=== PATIENT | male | born 1950 | race Caucasian/White ===

== ENCOUNTER 2025-04-03 07:59 | Outpatient (OUT) | payer MEDICARE, MEDICAID, SELFPAY ==
[2025-04-03 08:36] LABS: Basophils Percent Auto 0.6 % (0.2-2.0); Eosinophils Absolute Auto 0.1 10^3/uL (0.0-0.7); Eosinophils Percent Auto 2.4 % (0.9-7.0); Immature Granulocytes Abs Auto 0.03 10^3/uL (0.00-0.03); Immature Granulocytes Pct Auto 0.6 % (0.0-0.5); Lymphocytes Absolute Auto 1.2 10^3/uL (1.2-3.8); Lymphocytes Percent Auto 21.4 % (20.5-60.0); Mean Corpuscular HGB Conc 33.3 g/dL (29.9-35.2); Mean Corpuscular Hemoglobin 31.9 pg (25.9-34.0); Mean Corpuscular Volume 95.8 fL (80.0-94.0); Mean Platelet Volume 9.4 fL (9.5-13.5); Monocytes Absolute Auto 0.5 10^3/uL (0.3-0.8); Monocytes Percent Auto 9.7 % (1.7-12.0); Neutrophils Absolute Auto 3.5 10^3/uL (1.4-6.5); Neutrophils Percent Auto 65.3 % (43.0-75.0); Platelet Count 203 10^3/uL (150-450); Red Blood Count 4.07 10^6/uL (4.70-6.10); Red Cell Distribution Width 14.8 % (11.0-15.0); White Blood Count 5.4 10^3/uL (4.0-11.0)
[2025-04-03 09:14] LABS: Alanine Aminotransferase 12 U/L (16-63); Albumin Globulin Ratio 0.9; Albumin Level 3.2 g/dL (3.4-5.0); Alkaline Phosphatase 85 U/L (46-116); Anion Gap 6.7; Aspartate Amino Transferase 11 U/L (15-37); BUN Creatinine Ratio 14.4; Bilirubin Total 0.4 mg/dL (0.2-1.0); Calcium 9.4 mg/dL (8.5-10.1); Carbon Dioxide 35.1 mmol/L (21.0-32.0); Chloride 97 mmol/L (98-107); Estimated GFR (African America >60 (>=60 mL/min/1.73m^2); Estimated GFR (Non-African Ame >60 (>=60 mL/min/1.73m^2); Globulin 3.4 g/dL; Glucose 107 mg/dL (74-106); Potassium 4.8 mmol/L (3.5-5.1); Sodium 134 mmol/L (136-145); Thyroid Stimulating Hormone 1.225 uIU/mL (0.358-3.740); Total Protein 6.6 g/dL (6.4-8.2)
[2025-04-03 10:18] LABS: Free T4 0.87 ng/dL (0.76-1.46)
== END 2025-04-03 08:00 | disposition home or self-care (01) ==
LOC: LAB 08:06
PROVIDERS: PCP Internal Medicine
DX: Z92.29 Personal history of other drug therapy (principal)
CPT/HCPCS: 36415; 80053; 80164; 80165; 84439; 84443; 85025

== ENCOUNTER 2025-04-20 14:00 | Outpatient (OUT) | payer MEDICARE, MEDICAID, SELFPAY ==
--- NOTE | 2025-04-20 14:23 | PM.WCHP ---
Wound Care H&P: HPI History of Present Illness Narrative: Mr. Mon is a pleasant 74-year-old gentleman with history of type 2 diabetes with eye complications who presents for routine nail care. Last hemoglobin A1c was 5.8. He has no complaints in regards to his feet. Exam Narrative: Exam Narrative: Derm: Toenails 1 through 10 are thickened, elongated, and painful.? No evidence of paronychia.? Skin is diffusely dry, thin, and atrophic.? No ulcerative or preulcerative lesions are noted Vascular: DP and PT pulses are 2/4 bilaterally. Capillary refill is less than 3 seconds to all toes. Digital hair is absent bilaterally. Neuro: Vibratory sensation is present bilaterally.? Achilles deep tendon reflex is absent bilaterally.? Protective sensation was tested with a monofilament and is present in 3/5 areas tested on the right and 5/5 areas tested on the left.? Musculoskeletal: No gross deformity.? Strength 5/5 in all planes bilaterally Assessment and Plan Assessment and Plan (1) Tinea unguium: (2) Type 2 diabetes mellitus with other diabetic ophthalmic complication: (3) Nail dystrophy: Plan Routine nail care performed. Follow-up in 3 months. Acute Procedures Podiatry Nail Debridement Class B Findings Advanced trophic changes as evidenced by any three of the following: decreased hair growth, nail changes (thickening) and skin texture (thin or shiny) Class C Findings Claudication: No Temperature changes: No Edema: Yes Nail debridement paresthesia (abnormal spontaneous sensations in the feet): No Burning: No Qualifies If: Qualifiers If:: A patient qualifies for nail debridement if they have: 1 class A finding (Q7) 2 class B findings (Q8) OR 1 class B & 2 class C findings in addition to a primary condition (Q9) Nail Procedure Nail Procedure Time out: Yes Nail procedure: other (Toenail debridement toes 1 through 10) Number of affected nails: 10 Location (toes): left and right Procedure successful: Yes Patient tolerated procedure: well and no complications Additional comments: Toenails 1 through 10 were sharply debrided with nail nippers without incident
== END 2025-04-20 14:01 | disposition home or self-care (01) ==
LOC: WC 14:00
PROVIDERS: PCP Internal Medicine; Visit Provider Physician Assistant
DX: B35.1 Tinea unguium (principal); E11.39 Type 2 diabetes mellitus with other diabetic ophthalmic complication; L60.3 Nail dystrophy
CPT/HCPCS: 11721

== ENCOUNTER 2025-07-20 14:11 | Outpatient (OUT) | payer MEDICARE, MEDICAID, SELFPAY ==
--- NOTE | 2025-07-20 14:42 | PM.WCHP ---
Wound Care H&P: HPI History of Present Illness Narrative: Mr. Mon is a pleasant 75-year-old gentleman with history of type 2 diabetes with eye complications who presents for routine nail care. Last hemoglobin A1c was 5.8. He has no complaints in regards to his feet. Exam Narrative: Exam Narrative: Derm: Toenails 1 through 10 are thickened, elongated, mycotic, and painful.? No evidence of paronychia.? Skin is diffusely dry, thin, and atrophic.? Mild maceration noted between toe 4/5 on the right foot. Vascular: DP and PT pulses are 2/4 bilaterally. Capillary refill is less than 3 seconds to all toes. Digital hair is absent bilaterally. Neuro: Vibratory sensation is present bilaterally.? Achilles deep tendon reflex is absent bilaterally.? Protective sensation was tested with a monofilament and is present in 3/5 areas tested on the right and 5/5 areas tested on the left.? Musculoskeletal: No gross deformity.? Strength 5/5 in all planes bilaterally Assessment and Plan Assessment and Plan (1) Tinea unguium: (2) Type 2 diabetes mellitus with other diabetic ophthalmic complication: (3) Nail dystrophy: Plan Routine nail care performed. Betadine applied between toes 4 & 5 on the right foot for mild tinea pedis. Follow-up in 3 months. Acute Procedures Podiatry Nail Debridement Class B Findings Advanced trophic changes as evidenced by any three of the following: decreased hair growth, nail changes (thickening) and skin texture (thin or shiny) Class C Findings Claudication: No Temperature changes: No Edema: Yes Nail debridement paresthesia (abnormal spontaneous sensations in the feet): No Burning: No Qualifies If: Qualifiers If:: A patient qualifies for nail debridement if they have: 1 class A finding (Q7) 2 class B findings (Q8) OR 1 class B & 2 class C findings in addition to a primary condition (Q9) Nail Procedure Nail Procedure Time out: Yes Nail procedure: other (Toenail debridement toes 1 through 10) Number of affected nails: 10 Location (toes): left and right Procedure successful: Yes Patient tolerated procedure: well and no complications Additional comments: Toenails 1 through 10 were sharply debrided with nail nippers without incident
== END 2025-07-20 14:12 | disposition home or self-care (01) ==
LOC: WC 14:11
PROVIDERS: PCP Internal Medicine; Visit Provider Physician Assistant
DX: B35.1 Tinea unguium (principal); E11.39 Type 2 diabetes mellitus with other diabetic ophthalmic complication; L60.3 Nail dystrophy
CPT/HCPCS: 11721

== ENCOUNTER 2025-09-02 16:03 | Inpatient (IN) | payer MEDICARE, MEDICAID, SELFPAY ==
--- OUTSIDE RECORDS SUMMARY | 2024-12-12 09:00 | XMS_ITS ---
Author Organization The [facility] in [place] Address [address] [place] [address] Care Team Providers Care Regional Vice President Surgical Sales Name Role Phone None, Unknown or Primary Care Provider Unavailab Radha Hopkins Unavailable [phone] REASON FOR VISIT diabetic nail care Encounters Encounter Location Date Provider Diagnosis [facility] (PODIATRY) [address] [place] [address] [place] [address] 12/12/2024 Radha Almanza Plan Of Treatment No Information Progress Notes * Sacha SWEETDOB:1950 (75 yo M)Acc No.[id number]:12/12/2024 UNLOCKED PROGRESS NOTE Nurse Visit Patient: Sacha TRUJILLO Provider: Carolyn Almanza PA-C :1950 A ge:74 Y S ex:Male Date:12/12/2024 [facility] [phone] Pcp:Unknown or None Subjective: * Chief Complaints: * 1 . Diabetic nail care. * Medical History: Objective: * Vitals: Assessment: Plan: * Treatment: * * Electronic signature of Izabella Almanza PA-C on 09/02/2025 at 04:12 PM EDT Sign off status: Pending Visit Status: C ANC (Cancelled) * Provider: Carolyn Almanza PA-C Date: 0 12/12/2024 Generated for Printi ng/Faxing/eTransmitting on: 1 04:12 PM EDT
[2025-09-02] VITALS (25 sets, daily range): BP systolic 154–183; BP diastolic 81–100; PULSE 68–99; TEMP 36.8–36.9; O2SAT 84–96; BMI 25.8; BMI 29.1
--- NOTE | 2025-09-02 16:12 | XR_ITS ---
The [address] [address] Patient Name: KEN SWEET MRN: [id number] date: 1950 Sex: M Assigned Patient Location: ED.MAIN Current Patient Location: ED.MAIN Accession/Order Number: [id number] Exam Date: 09/02/2025 16:40 Report Date: 09/02/2025 16:53 At the request of: MACKENZIE BRYANT MD Procedure: XR chest 1V Single view chest: CLINICAL HISTORY: sob COMPARISON: Chest 02/09/2020 FINDINGS: Right-sided port tip in the SVC. Cardiomegaly with vascular congestion similar to the prior study. Moderate interstitial changes. No consolidation pneumothorax pleural effusion or free air. IMPRESSION: CHF FINDINGS. Impression dictated by: Fred Marquez Jr.ODestiny 09/02/2025 4:53 PM Dictation Location: [place] [address] Electronically authenticated by: [id number] Y Date: 09/02/2025 16:53
--- NOTE | 2025-09-02 16:12 | ECG_ITS ---
The [facility] Test Date: 2025-09-02 Pat Name: KEN SWEET Department: Room: - Gender: Male Cut To Length Operator: : 1950 Requested By: [id number] Order Number: [id number] Reading MD: CORNELL RENTERIA M.D. Measurements Intervals Thomson Rate: 72 P: 20 RI: 158 QRS: 32 QRSD: 92 T: 40 QT: 362 QTc: 386 Interpretive Statements 1100 Sinus rhythm 9110 normal ECG Compared to ECG 02/09/2020 14:49:56 No significant changes Electronically Signed On 09-03-2025 13:25:40 EDT by CORNELL RENTERIA M.D.
--- OUTSIDE RECORDS SUMMARY | 2025-09-02 16:13 | XMS_ITS ---
Author Organization [facility] Address [address] [place], [place] [id number] Care Team Providers Care Rubber Compounder Formulator Name Role Phone Jose Luis THORPE MD, Padilla Fletcher Primary Care Provider [phone] Smitha Doyle DO, David L Unavailable [phone] Liza Travis APRN.CNP Unavailable [phone] Carlos Cr MD Unavailable Active Problems Problem Noted Date Diagnosed Date CHF (congestive heart failure) 06/05/2025 Obstructive sleep apnea syndrome 06/05/2025 Chronic obstructive pulmonary disease (COPD) 05/2025 Developmental delay 07/22/2022 Malignant neoplasm of lower third of esophagus 0 04/09/2019 Hereditary and idiopathic neuropathy, unspecifie d Hearing loss Current Treatment and Therapy Plans No current plan information found. Past Treatment and Therapy Plans ONCOLOGY REGIMEN Plan Name Start Date Discontinue Date Treatment Medications Discontinue Reason Plan Provider Cycles PACLITAXEL 50 CARBOPLATIN 2 D1,8,15,22,29, 36,43,50 - Q56D 9 07/09/2020 CARBOplatin iv piggyback (PARAPLATIN)PA CLitaxel iv piggyback (TAXOL) Other Jd Argueta DO 1 of 1 cycle started Treatment Summaries Malignant neoplasm of lower third of esophagus (HCC)* Treatment Summary and Survivorship Care Plan Provided by: Liza Travis APRN.SUB ACUTE CARE NURSE General Information Patient Name: Sacha Mon Patient : 1950 Patient Health Care Providers Primary Care Provider: Dr. Padilla Amaya II Radiation Oncologist: Dr. Carlos Cr Medical Oncologist: Dr. Joshua Rodriges Other Providers: Liza Travis APRN.CNP ; Dr. Zachary Bone ([place]) Treatment Summary Diagnosis Location: Esophagus Cancer- GE junction/proximal stomach Cancer Type/Histology: Adenocarcinoma Stage: IIA, uT1, N1, M0 Diagnosis Date (year): Treatment Procedure Date(s)(year): March 03, 2019 Surgical procedure/location/findings: Upper endoscopy with EUS; Esophagus Cancer- GE junction/proximal stomach; Invasive, well to moderately differentiated adenocarcinoma Surgical Pathology: Pathologic diagnosis: Esophagus, GE junction/distal esophagus, endoscopic biopsy: Invasive, well to moderately differentiated adenocarcinoma. Carcinoma arises in Ding esophagitis with high-grade dysplasia. Radiation Radiation: Yes Body area treated: Distal esophagus/Proximal stomach Dose received: 5,040 cGy in 28 fx End Date (year): June 03, 2019 (April 26, 2019 through June 03, 2019) DELIVERED DOSE: Area: Distal Esophagus/Proximal Stomach 5,040 cGy in 28 fractions, 2 Arcs, VMAT, 6MV with daily CBCT TOTAL: 5,040 cGy in 28 fractions with concurrent carboplatin/paclitaxel ELAPSED TIME: 39 days. Chemotherapy Systemic Therapy (chemotherapy,hormonal therapy, other): Yes Name of Agents Used: Carboplatin and Paclitaxel Concurrent Radiation: Yes Frequency: Weekly x5 cycles Carboplatin AUC 2 Paclitaxel 50 mg/m2 End Dates(year): June 03, 2019 (April 26, 2019 through June 03, 2019) Persistent symptoms or side effects at completion of treatment: No Familial Cancer Risk Assessment Genetic/hereditary risk factor(s) or predisposing conditions: Some cancers have a familial link forwhich genetic counseling along with early cancer screening may be able to help prevent future generations fight similar cancers. However, at this time, there is no known familial link for your cancer. Genetic counseling: No Genetic testing results: N/A Follow-up Care Plan Need for ongoing (adjuvant) treatment for cancer: No Follow Up and Cancer Surveillance Schedule Time Since Diagnosis Outpatient Visits Labs Chest Imaging 0-2 Every 3 months Every other visit Once a year 2-5 Every 6 months Every other visit Once a year 5-10 Once a year Every visit Once a year Time Since Diagnosis Outpatient Visits Labs Chest Imaging 0-2 Every 3 months Every other visit Once a year 2-4 Every 4 months Every other visit Once a year 4-5 Every 6 months Every other visit Once a year 5-10 Once a year Every visit Once a year Visits to be coordinated by oncology team. Additional routine radiographic monitoring or biopsies can sometimes be indicated based on an individual patient basis. Please continue to see your primary care provider for all general health care recommended for a 71 year old year old male, including general cancer screening tests. Please do not hesitate to call theoffice or call attention to any new symptoms. Specifically, this would include anything representin. A brand new symptom; 2. A persistent or worsening symptom; 3. Or a symptom that might be related to the cancer coming back. Additional testing may become necessary at some point in time. We encourage you to call with any new concerns or questions, particularly if your symptoms are worsening or have lasted longer than 2 weeks. Possible late- and long-term effects that someone with this type of cancer and treatment may experience: Taste changes/Changes in eating habits Dental Problems/Delayed oral healing Hearing loss/Tinnitus Lymphedema/Swelling Feeding Tube Neuropathy Skin Changes Thyroid Changes Cancer survivors may experience issues with the areas listed below. If you have any concerns in these or other areas, please speak with your doctors or nurses to find out how you can get help with them: Emotional and mental health Physical Functioning Memory or concentration loss Fatigue Weight changes Fertility Stopping smoking Financial advice or assistance A number of lifestyle/behaviors can affect your ongoing health, including the risk for the cancer coming back or developing another cancer. Discuss these recommendations with your doctor or nurse: Tobacco use/cessation Alcohol use Diet Sun screen use Physical activity Resources you may be interested in: Director Of Front Office Cell Efficiency Supervisor Art Therapy [address] [place] [address] Oral, Head and Neck Cancer Support Group [facility] [phone] [facility] - [phone] [facility] - [phone] [facility] - [phone] Cancer Support [facility] - [phone] Prepared by: Liza Travis APRN.SUB ACUTE CARE NURSE Delivered on: March 07, 2022 - This Survivorship Care Plan is a cancer treatment summary and follow-up plan is provided to you to keep with your health care records and to share with your primary care provider. - This summary is a brief record of major aspects of your cancer treatment. You can share your copywith any of your doctors or nurses. However, this is not a detailed or comprehensive record of yourcare.
--- OUTSIDE RECORDS SUMMARY | 2025-09-02 16:13 | XMS_ITS | Encounter Summary ---
Author Organization [facility] Address [address] [place] [address] Care Team Providers Care Research Statistician Name Role Phone Padilla Amaya MD Unavailable [phone] Padilla Amaya MD Primary Care Provider [phone] Marian Lewis CERTIFIED ACTIVITIES DIRECTOR-BUNG DROPPER Unavailable Marian Lewis CERTIFIED ACTIVITIES DIRECTOR-BUNG DROPPER Unavailable Encounter Details Date Type Department Care Team (Late st Contact Info) Description 07/01/2023 Abstract [facility] [place] [facility] [address] [facility] [address] [place] [address] Padilla Amaya MD [address] [facility] [address] [place] [address] Social History Tobacco Use Types Packs/Day Years Used Date Smoking Tobacco: Former Cigarettes Smokeless Tobacco: Never Alcohol Use Standard Drinks/Week Comments Never 0 (1 standard drink = 0.6 oz pur e alcohol) 3-5 coffee Humiliation, Afraid, Rape, and Kick questionnair e Answer Date Recorded Within the last year, have y ou been afraid of your partner or ex-partner? No 06/26/2023 Within the last year, have y ou been humiliated or emotionally abused in other ways by your partner or ex-partner? No Within the last year, have y ou been kicked, hit, slapped, or otherwise physically hurt by your partner or ex-partner? No 06/26/2023 Within the last year, have y ou been raped or forced to have any kind of sexual activity by your partner or ex-partner? No 06/26/2023 Social Connection and Isolat ion Panel [NHANES] Answer Date Recorded In a typical week, how many times do you talk on the phone with family, friends, or neighbors? Once a week 06/26/2023 How often do you get togethe r with friends or relatives? Once a week 06/26/2023 How often do you attend chur or caodaism services? Never 06/26/2023 Do you belong to any clubs o r organizations such as confucianist groups, unions, fraternal or athletic groups, or school groups? Yes 06/26/2023 How often do you attend meet ings of the clubs or organizations you belong to? More than 4 times per year 06/26/2023 Are you , , di vorced, , never , or living with a partner? 06/26/2023 AUDIT-C Answer Date Recorded Q1: How often do you have a drink containing alcohol? Never 06/26/2023 Q2: How many drinks containi ng alcohol do you have on a typical day when you are drinking? Patient does not drink Q3: How often do you have si x or more drinks on one occasion? Never 06/26/2023 Overall Financial Resource Strain (CARDIA) Answe r Date Recorded How hard is it for you to pa y for the very basics like food, housing, medical care, and heating? Not hard at all 06/26/2023 PHQ-2 Answer Date Recorded Patient Health Questionnaire-2 Score 0 06/16/2023 [facility] - Occupational Stress Questionnaire Answer Date Recorded Do you feel stress - tense, restless, nervous, or anxious, or unable to sleep at night because your mind is troubled all the time - these days? Not at all 06/26/2023 Exercise Vital Sign Answer Date Recorde d On average, how many days pe r week do you engage in moderate to strenuous exercise (like a brisk walk)? 5 days 06/26/2023 On average, how many minutes do you engage in exercise at this level? 10 min 06/26/2023 Hunger Vital Sign Answer Date Recorded Within the past 12 months, y ou worried that your food would run out before you got the money to buy more. Never true 06/26/20 23 Within the past 12 months, t he food you bought just didn't last and you didn't have money to get more. Never true 06/26/2023 PRAPARE - Transportation Answer Date Re corded In the past 12 months, has l ack of transportation kept you from medical appointments or from getting medications? No 05/31 In the past 12 months, has l ack of transportation kept you from meetings, work, or from getting things needed for daily living? No 06/26/2023 Housing Stability Vital Sign Answer William e Recorded In the last 12 months, was t here a time when you were not able to pay the mortgage or rent on time? No 06/26/2023 In the last 12 months, how many places have you lived? 1 06/26/2023 In the last 12 months, was t here a time when you did not have a steady place to sleep or slept in a fpc (including now)? No 06/26/2023 Sex and Gender Information Value Date Recorded Sex Assigned at Not on file Legal Sex Male 6:44 PM EDT Gender Identity Not on file Sexual Orientation Not on file documented as of this encounter Plan of Treatment Upcoming Encounters Date Type Department Care Team (Late st Contact Info) Description 09/20/2025 2:00 PM EDT Office Visit [facility] [place] [facility] [address] [place] [address] [place] [phone] Rosario Nash MD [address] [place] [address] [place] [address] 09/26/2025 8:30 AM EDT Office Visit [facility] [place] [facility] [address] [place] [address] [place] [phone] Karen Cruz NP [address] [place] [address] [place] [address] 10/04/2025 1:30 PM EST Office Visit [facility] [place] [facility] [address] [place] [address] [place] [address] Marian Lewis, CERTIFIED ACTIVITIES DIRECTOR-BUNG DROPPER [address] [facility] [address] [place] [address] documented as of this encounter Visit Diagnoses Not on filedocumented in this encounter Care Teams Research Statistician Relationship Specialty Start Date End Date Padilla Amaya MD [address] [facility] [address] [place] [address] PCP - Almita CARSON 11/30/21 11/29/23 Padilla Amaya MD [address] [facility] [address] [place] [address] PCP - General Internal Medicine 05/26/23 Marian Lewis, CERTIFIED ACTIVITIES DIRECTOR-BUNG DROPPER [address] [facility] [address] [place] [address] PCP - Almita CARSON 11/30/23 Marian Lewis, CERTIFIED ACTIVITIES DIRECTOR-BUNG DROPPER [address] [facility] [address] [place] [address] Nurse Practitioner Behavioral Health 05/26/23 documented as of this encounter
--- OUTSIDE RECORDS SUMMARY | 2025-09-02 16:13 | XMS_ITS | Encounter Summary ---
Author Organization [facility] Address [address] [place] [address] Care Team Providers Care Biodiesel Product Development Manager Name Role Phone Padilla Amaya MD Unavailable [phone] Padilla Amaya MD Primary Care Provider [phone] Marian Lewis PARTS DEPARTMENT MANAGER-WORK ORDER DETAILER Unavailable Marian Lewis PARTS DEPARTMENT MANAGER-WORK ORDER DETAILER Unavailable Encounter Details Date Type Department Care Team (Late st Contact Info) Description 04/06/2023 Orders Only [facility] [place] [facility] [address] [facility] [address] [place] [address] May Shukla LPN Social History Tobacco Use Types Packs/Day Years Used Date Smoking Tobacco: Never Smokeless Tobacco: Never Tobacco Cessation:Counseling Given: Not Answered Alcohol Use Standard Drinks/Week Comments Never 0 (1 standard drink = 0.6 oz pur e alcohol) Sex and Gender Information Value Date Recorded Sex Assigned at Not on file Legal Sex Male 6:44 PM EDT Gender Identity Not on file Sexual Orientation Not on file documented as of this encounter Plan of Treatment Upcoming Encounters Date Type Department Care Team (Late st Contact Info) Description 09/20/2025 2:00 PM EDT Office Visit [facility] [place] [facility] [address] [facility] [address] [place] [address] Rosario Nash MD 112 [facility] [address] [place], [place] [id number] 09/26/2025 8:30 AM EDT Office Visit [facility] [place] [facility] [address] [facility] [address] [place] [phone] Karen Cruz, CLIENT MANAGER [employer] [address] [place] [address] [place] [address] 10/04/2025 1:30 PM EST Office Visit [facility] [place] [facility] [address] [place] [address] [place] [phone] Marian Lewis, PARTS DEPARTMENT MANAGER-WORK ORDER DETAILER [address] [facility] [address] [place] [address] documented as of this encounter Visit Diagnoses Not on filedocumented in this encounter Care Teams Biodiesel Product Development Manager Relationship Specialty Start Date End Date Padilla Amaya MD [address] [facility] [address] [place] [address] PCP - Almita CARSON 11/30/21 11/29/23 Padilla Amaya MD [address] [facility] [address] [place] [address] PCP - General Internal Medicine 05/26/23 Marian Lewis, PARTS DEPARTMENT MANAGER-WORK ORDER DETAILER [address] [facility] [address] [place] [address] PCP - Almita CARSON 11/30/23 Marian Lewis, PARTS DEPARTMENT MANAGER-WORK ORDER DETAILER [address] [place] [address] [place] [address] Nurse Practitioner Behavioral Health 05/26/23 documented as of this encounter
--- OUTSIDE RECORDS SUMMARY | 2025-09-02 16:13 | XMS_ITS | Encounter Summary ---
Author Organization [facility] Address [address] [place] [address] Care Team Providers Care Sales Management Trainee Name Role Phone Padilla Amaya MD Unavailable [phone] Padilla Amaya MD Primary Care Provider [phone] MONKEY-TWILL CUTTER Unavailable Marian Lewis [address] MONKEY-TWILL CUTTER Unavailable Encounter Details Date Type Department Care Team (Late st Contact Info) Description 06/25/2023 Abstract [facility] [place] [facility] 112 [facility] 110 [place] [address] Padilla Amaya MD 112 [facility] 110 [place] [address] Social History Tobacco Use Types [...] How often do you attend chur or adventist services? Never 06/26/2023 Do you belong to any clubs o r organizations such as protestant groups, unions, fraternal or athletic groups, or [...] Recorded Patient Health Questionnaire-2 Score 0 06/16/2023 [facility] of Occupat ionny Health - Occupational Stress Questionnaire Answer Date [...] place to sleep or slept in a mcc (including now)? No 06/26/2023 Sex and Gender Information Value Date Recorded Sex Assigned at Not on file Legal Sex Male 6:44 PM EDT Gender Identity Not on file Sexual Orientation Not on file documented as of this encounter Functional Status * Audit-C Score Answer Date of Assessment Author 0 06/26/2023 10:04 AM EDT Kesha Hwang LPN * Question Answer Date of Assessment Author Q1: How often do you have a drink containing alcohol? Never 06/26/2023 10:04 AM EDT Kesha Hwang L PN Q2: How many drinks containing alcohol do you have on a typical day when you are drinking? Patient does not drink 06/26/2023 10:04 AM EDT Kesha Hwang LPN Q3: How often do you have six or more drinks on one occasion? Never 06/26/2023 10:04 AM EDT Kesha Hwang L PN documented as of this encounter Plan of Treatment Upcoming Encounters Date Type Department Care Team (Late st Contact Info) Description 09/20/2025 2:00 PM EDT Office Visit [facility] [place] [facility] [address] [facility] [address] [place] [address] Rosario Nash MD [address] [place] [address] [place] [address] 09/26/2025 8:30 AM EDT Office Visit [facility] [place] [facility] [address] [place] [address] [place] [address] Karen Cruz, SOCIAL AND POLITICAL STUDIES PROFESSOR [address] [place] [address] [place] [address] 10/04/2025 1:30 PM EST Office Visit [facility] [place] [facility] [address] [place] [address] [place] [address] Marian Lewis, ROAD MONKEY-TWILL CUTTER [address] [place] [address] [place] [address] documented as of this encounter Visit Diagnoses Not on filedocumented in this encounter Care Teams Sales Management Trainee Relationship Specialty Start Date End Date Padilla Amaya MD [address] [place] [address] [place] [address] PCP - Almita CARSON 11/30/21 11/29/23 Padilla Amaya MD [address] [place] [address] [place] [address] PCP - General Internal Medicine 05/26/23 Marian Lewis, ROAD MONKEY-TWILL CUTTER [address] [place] [address] [place] [address] PCP - Almita CARSON 11/30/23 Marian Lewis, ROAD MONKEY-TWILL CUTTER [address] [place] [address] [place] [address] Nurse Practitioner Behavioral Health 05/26/23 documented as of this encounter
--- OUTSIDE RECORDS SUMMARY | 2025-09-02 16:13 | XMS_ITS | Encounter Summary ---
Author Organization [facility] Address [address] [place] [address] Care Team Providers Care Foreman/Project Manager Name Role Phone Padilla Amaya MD Unavailable [phone] Padilla Amaya MD Primary Care Provider [phone] Marian Lewis WINE MANAGER-INSTRUCTOR WEAVING Unavailable Marian Lewis WINE MANAGER-INSTRUCTOR WEAVING Unavailable Encounter Details Date Type Department Care Team (Late st Contact Info) Description 06/11/2023 Clinisync Result Encounter [facility] External Department Unsolicited Provider, Generic External Data Social History Tobacco Use Types Packs/Day Years Used Date Smoking Tobacco: Never Smokeless Tobacco: Never Alcohol Use Standard Drinks/Week [...] Office Visit [facility] [place] [facility] [address] [facility] 130 [place] [address] Rosario Nash MD [address] [facility] 130 [place] [address] 09/26/2025 8:30 AM EDT Office Visit [facility] [place] [facility] 112 [facility] 110 [place] [address] Karen Cruz, STRETCHER HELPER 112 [facility] 110 [place] [address] 10/04/2025 1:30 PM EST Office Visit [facility] [place] [facility] 112 [facility] [address] [place] [address] Marian Lewis, WINE MANAGER-INSTRUCTOR WEAVING 112 [facility] 160 [place] [address] documented as of this encounter Procedures Procedure Name Priority Date/Time Associated Diagnosis Comments CT CHEST W IV CONTRAST 06/11/2023 2:15 PM EDT documented in this encounter Results * CT chest w IV contrast (06/11/2023 2:15 PM EDT) Anatomical Region Laterality Modality Body, Chest Computed Tomogra phy 06/11/2023 2:15 PM EDT Narrative 06/12/2023 1:46 PM EDT * * *Final Report* * * DATE OF EXAM: Jun 11 2023 2:15PM [facility] 0539 - CT CHEST W IVCON / PROCEDURE REASON: Malignant neoplasm of lower third of esophagus (HCC) * * * * Physician Interpretation * * * * RESULT: EXAMINATION: CHEST CT WITH CONTRAST CLINICAL HISTORY: Esophageal carcinoma Technique: Spiral CT acquisition of the chest from the thoracic inlet to the upper abdomen following IV contrast. MQ: CTCW_6 Contrast: 150 mL Omnipaque [address] Radiation dose: Integrated Dose-length product (DLP) for this visit = 1042 mGy*cm CT Dose Reduction Employed: Automated exposure control (AEC) Comparison: CT chest 02/26/2022 RESULT: Limitations: None. Lines, tubes, and devices: Right-sided Port-A-Cath remains in place. Lung parenchyma , airways, and pleural space: No consolidative process or pleural effusion. The trachea and major airways appear patent. Mild, diffuse bronchial wall thickening is appreciated. Focal area of cystic bronchiectasis within the right upper lobe, image 61, series 4, stable. Bibasilar subpleural areas of atelectasis/scarring are again noted. 3 mm nodule at the right lower lobe, image 150, series 4, stable. Newly apparent 4 mm nodule within the left lower lobe, image 132, series 4 is felt to most likely relate to an area of mucous plugging. Lower neck, lymph nodes, and mediastinum: Heterogeneous enlargement of the thyroid gland is appreciated, stable. 2.1 cm right lobe hypodensity, unchanged. No substantial supraclavicular or axillary lymphadenopathy is identified. No substantial mediastinal or hilar adenopathy is identified. Moderate, diffuse esophageal wall thickening is identified, more prominent at the gastroesophageal junction, unchanged. Heart, pericardium, and thoracic vessels: The thoracic aorta is normal in caliber. No substantial pericardial effusion. A small amount of coronary artery calcification is noted. Bones/Soft Tissues: Degenerative change involving the thoracic spine is again appreciated. No osseous destructive process is appreciated. Upper Abdomen: A CT examination of the abdomen has been performed concurrently and will be dictated separately. Flight Security Specialist (topogram) images: No additional findings. IMPRESSION: 1. Newly apparent 4 mm nodule within the left lower lobe is felt to most likely relate to an area of mucous plugging. Correlation with continued follow-up summations is recommended. 2. Moderate, diffuse esophageal wall thickening is again identified, unchanged. 3. No substantial intrathoracic adenopathy is identified. Transcribe Date/Time: Jun 12 2023 10:06A Dictated by: MUNIR CORTEZ MD This examination was interpreted and the report reviewed and electronically signed by: MUNIR CORTEZ MD on Jun 12 2023 1:43PM EST Thank you for allowing us to participate in the care of your patient. Should there be any questions regarding this interpretation, please call [phone]. If you are unable to reach us at the number above, please feel free to contact [facility] at [phone]. [id number] Procedure Note Radiology, Radiologist, - 06/12/2023 * * *Final Report* * * DATE OF EXAM: Jun 11 2023 2:15PM [facility] 0539 - CT CHEST W IVCON / PROCEDURE REASON: Malignant neoplasm of lower third of esophagus (HCC) * * * * Physician Interpretation * * * * RESULT: EXAMINATION: CHEST CT WITH CONTRAST CLINICAL HISTORY: Esophageal carcinoma Technique: Spiral CT acquisition of the chest from the thoracic inlet to the upper abdomen following IV contrast. MQ: CTCW_6 Contrast: 150 mL Omnipaque [address] Radiation dose: Integrated Dose-length product (DLP) for this visit = 1042 mGy*cm CT Dose Reduction Employed: Automated exposure control (AEC) Comparison: CT chest 02/26/2022 RESULT: Limitations: None. Lines, tubes, and devices: Right-sided Port-A-Cath remains in place. Lung parenchyma , airways, and pleural space: No consolidative process or pleural effusion. The trachea and major airways appear patent. Mild, diffuse bronchial wall thickening is appreciated. Focal area of cystic bronchiectasis within the right upper lobe, image 61, series 4, stable. Bibasilar subpleural areas of atelectasis/scarring are again noted. 3 mm nodule at the right lower lobe, image 150, series 4, stable. Newly apparent 4 mm nodule within the left lower lobe, image 132, series 4 is felt to most likely relate to an area of mucous plugging. Lower neck, lymph nodes, and mediastinum: Heterogeneous enlargement of the thyroid gland is appreciated, stable. 2.1 cm right lobe hypodensity, unchanged. No substantial supraclavicular or axillary lymphadenopathy is identified. No substantial mediastinal or hilar adenopathy is identified. Moderate, diffuse esophageal wall thickening is identified, more prominent at the gastroesophageal junction, unchanged. Heart, pericardium, and thoracic vessels: The thoracic aorta is normal in caliber. No substantial pericardial effusion. A small amount of coronary artery calcification is noted. Bones/Soft Tissues: Degenerative change involving the thoracic spine is again appreciated. No osseous destructive process is appreciated. Upper Abdomen: A CT examination of the abdomen has been performed concurrently and will be dictated separately. Flight Security Specialist (topogram) images: No additional findings. IMPRESSION: 1. Newly apparent 4 mm nodule within the left lower lobe is felt to most likely relate to an area of mucous plugging. Correlation with continued follow-up summations is recommended. 2. Moderate, diffuse esophageal wall thickening is again identified, unchanged. 3. No substantial intrathoracic adenopathy is identified. Transcribe Date/Time: Jun 12 2023 10:06A Dictated by: MUNIR CORTEZ MD This examination was interpreted and the report reviewed and electronically signed by: MUNIR CORTEZ MD on Jun 12 2023 1:43PM EST Thank you for allowing us to participate in the care of your patient. Should there be any questions regarding this interpretation, please call [phone]. If you are unable to reach us at the number above, please feel free to contact [facility] at [phone]. [id number]^[email or web address] us Generic External Data Provider IMG CT PROCEDURES Final Result documented in this encounter Visit Diagnoses Not on filedocumented in this encounter Care Teams Foreman/Project Manager Relationship Specialty Start Date End Date Padilla Amaya MD [address] [facility] 110 [place] [address] PCP - Almita CARSON 11/30/21 11/29/23 Padilla Amaya MD [address] [facility] 110 [place] [address] PCP - General Internal Medicine 05/26/23 Marian Lewis APRN-INSTRUCTOR WEAVING [address] [facility] 160 [place] [address] PCP - Almita CARSON 11/30/23 Marian Lewis APRN-INSTRUCTOR WEAVING [address] [facility] 160 [place] [address] Nurse Practitioner Behavioral Health 05/26/23 documented as of this encounter
--- OUTSIDE RECORDS SUMMARY | 2025-09-02 16:13 | XMS_ITS | Encounter Summary ---
Author Organization [facility] Address [address] [place] [address] Care Team Providers Care Graduate Assistant Athletic Trainer Name Role Phone Padilla Amaya MD Unavailable [phone] Padilla Amaya MD Primary Care Provider [phone] Marian Lewis MAINTENANCE DEPARTMENT MANAGER-CUSTOMER RELATIONSHIP SPECIALIST Unavailable Marian Lewis MAINTENANCE DEPARTMENT MANAGER-CUSTOMER RELATIONSHIP SPECIALIST Unavailable Encounter Details Date Type Department Care Team (Late st Contact Info) Description 06/25/2023 Abstract [facility] [place] [facility] 112 [facility] 110 [place] [address] Padilla Amaya MD 112 [facility] 110 [place] [address] Social History Tobacco Use Types [...] How often do you attend chur or anabaptism services? Never 06/26/2023 Do you belong to any clubs o r organizations such as roman catholic groups, unions, fraternal or athletic groups, or [...] Recorded Patient Health Questionnaire-2 Score 0 06/16/2023 [facility] of Occupat ionnm Health - Occupational Stress Questionnaire Answer Date [...] place to sleep or slept in a penitentiary (including now)? No 06/26/2023 Sex and Gender [...] Visit [facility] [place] [facility] [address] [facility] [address] [place] [address] Rosario Nash MD [address] [place] [address] [place] [address] 09/26/2025 8:30 AM EDT Office Visit [facility] [place] [facility] [address] [place] [address] [place] [address] Karen Cruz, JUDICIAL ADMINISTRATIVE ASSISTANT [address] [place] [address] [place] [address] 10/04/2025 1:30 PM EST Office Visit [facility] [place] [facility] [address] [place] [address] [place] [address] Marian Lewis, MAINTENANCE DEPARTMENT MANAGER-CUSTOMER RELATIONSHIP SPECIALIST [address] [place] [address] [place] [address] documented as of this encounter Visit Diagnoses Not on filedocumented in this encounter Care Teams Graduate Assistant Athletic Trainer Relationship Specialty Start Date End Date Padilla Amaya MD [address] [place] [address] [place] [address] PCP - Almita CARSON 11/30/21 11/29/23 Padilla Amaya MD [address] [place] [address] [place] [address] PCP - General Internal Medicine 05/26/23 Marian Lewis, MAINTENANCE DEPARTMENT MANAGER-CUSTOMER RELATIONSHIP SPECIALIST [address] [place] [address] [place] [address] PCP - Almita CARSON 11/30/23 Marian Lewis, MAINTENANCE DEPARTMENT MANAGER-CUSTOMER RELATIONSHIP SPECIALIST [address] [place] [address] [place] [address] Nurse Practitioner Behavioral Health 05/26/23 documented as of this encounter
--- OUTSIDE RECORDS SUMMARY | 2025-09-02 16:13 | XMS_ITS | Encounter Summary ---
Author Organization [facility] Address [address] [place] [address] Care Team Providers Care Franchise Broker Name Role Phone Padilla Amaya MD Unavailable [phone] Padilla Amaya MD Primary Care Provider [phone] Marian Lewis AVIATION TECHNICAL SYSTEMS SPECIALIST-ARMHOLE SEWER Unavailable Marian Lewis AVIATION TECHNICAL SYSTEMS SPECIALIST-ARMHOLE SEWER Unavailable Encounter Details Date Type Department Care Team (Late st Contact Info) Description 07/17/2023 Abstract [facility] [place] [facility] [address] [facility] 110 [place] [address] Padilla Amaya MD 112 [facility] 110 [place] [address] Social History Tobacco Use Types [...] How often do you attend chur or gnosticism services? Never 06/26/2023 Do you belong to any clubs o r organizations such as buddhist groups, unions, fraternal or athletic groups, or [...] Recorded Patient Health Questionnaire-2 Score 0 06/16/2023 [facility] of Occupat ionva Health - Occupational Stress Questionnaire Answer Date [...] place to sleep or slept in a usp (including now)? No 06/26/2023 Sex and Gender [...] Visit [facility] [place] [facility] [address] [facility] [address] [place] [phone] Rosario Nash MD [address] [place] [address] [place] [address] 09/26/2025 8:30 AM EDT Office Visit [facility] [place] [facility] [address] [place] [address] [place] [address] Karen Cruz NP [address] [place] [address] [place] [address] 10/04/2025 1:30 PM EST Office Visit [facility] [place] [facility] [address] [place] [address] [place] [address] Marian Lewis, AVIATION TECHNICAL SYSTEMS SPECIALIST-ARMHOLE SEWER [address] [facility] [address] [place] [address] documented as of this encounter Visit Diagnoses Not on filedocumented in this encounter Care Teams Franchise Broker Relationship Specialty Start Date End Date Padilla Amaya MD [address] [facility] [address] [place] [address] PCP - Almita CARSON 11/30/21 11/29/23 Padilla Amaya MD [address] [facility] [address] [place] [address] PCP - General Internal Medicine 05/26/23 Marian Lewis, AVIATION TECHNICAL SYSTEMS SPECIALIST-ARMHOLE SEWER [address] [facility] [address] [place] [address] PCP - Almita CARSON 11/30/23 Marian Lewis, AVIATION TECHNICAL SYSTEMS SPECIALIST-ARMHOLE SEWER [address] [facility] [address] [place] [address] Nurse Practitioner Behavioral Health 05/26/23 documented as of this encounter
--- OUTSIDE RECORDS SUMMARY | 2025-09-02 16:13 | XMS_ITS | Encounter Summary ---
Author Organization [facility] Address [address] [place] [address] Care Team Providers Care Care Professionals Name Role Phone Padilla Amaya MD Unavailable [phone] Padilla Amaya MD Primary Care Provider [phone] Marian Lewis GUN EXAMINER-RETAIL MANAGEMENT KEYHOLDER Unavailable Marian Lewis GUN EXAMINER-RETAIL MANAGEMENT KEYHOLDER Unavailable Encounter Details Date Type Department Care Team (Late st Contact Info) Description 08/05/2023 Abstract [facility] [place] [facility] 112 [facility] 110 [place] [address] Padilla Amaya MD 112 [facility] 110 [place] [address] Social History Tobacco Use Types [...] How often do you attend chur or mandaen services? Never 06/26/2023 Do you belong to any clubs o r organizations such as scientology groups, unions, fraternal or athletic groups, or [...] Recorded Patient Health Questionnaire-2 Score 0 06/16/2023 [facility] of Occupat ionfl Health - Occupational Stress Questionnaire Answer Date [...] place to sleep or slept in a retirement (including now)? No 06/26/2023 Sex and Gender [...] Visit [facility] [place] [facility] [address] [facility] [address] [place] [address] Rosario Nash MD [address] [place] [address] [place] [address] 09/26/2025 8:30 AM EDT Office Visit [facility] [place] [facility] [address] [place] [address] [place] [address] Karen Cruz NP [address] [place] [address] [place] [address] 10/04/2025 1:30 PM EST Office Visit [facility] [place] [facility] [address] [place] [address] [place] [address] Marian Lewis, GUN EXAMINER-RETAIL MANAGEMENT KEYHOLDER [address] [facility] [address] [place] [address] documented as of this encounter Visit Diagnoses Not on filedocumented in this encounter Care Teams Care Professionals Relationship Specialty Start Date End Date Padilla Amaya MD [address] [facility] [address] [place] [address] PCP - Almita CARSON 11/30/21 11/29/23 Padilla Amaya MD [address] [facility] [address] [place] [address] PCP - General Internal Medicine 05/26/23 Marian Lewis, GUN EXAMINER-RETAIL MANAGEMENT KEYHOLDER [address] [facility] [address] [place] [address] PCP - Almita CARSON 11/30/23 Marian Lewis, GUN EXAMINER-RETAIL MANAGEMENT KEYHOLDER [address] [facility] [address] [place] [address] Nurse Practitioner Behavioral Health 05/26/23 documented as of this encounter
--- OUTSIDE RECORDS SUMMARY | 2025-09-02 16:13 | XMS_ITS | Encounter Summary ---
Author Organization [facility] Address [address] [place] [address] Care Team Providers Care Academic Department Chair Name Role Phone Padilla Amaya MD Unavailable [phone] Padilla Amaya MD Primary Care Provider [phone] Marian Lewis BRAKE ENGINEER-AERIAL ADVERTISER Unavailable Marian Lewis BRAKE ENGINEER-AERIAL ADVERTISER Unavailable Encounter Details Date Type Department Care Team (Late st Contact Info) Description 05/21/2023 Abstract [facility] [place] [facility] [address] [facility] 110 [place] [address] Padilla Amaya MD [address] [facility] 110 [place] [address] Social History Tobacco Use Types [...] Office Visit [facility] [place] [facility] [address] [facility] [address] [place] [address] Rosario Nash MD [address] [place] [address] [place] [address] 09/26/2025 8:30 AM EDT [facility] [place] [facility] [address] [place] [address] [place] [address] Karen Cruz, COMPUTATIONAL LINGUIST [address] [place] [address] [place] [address] 10/04/2025 1:30 PM EST Office Visit [facility] [place] [facility] [address] [place] [address] [place] [address] Marian Lewis, BRAKE ENGINEER-AERIAL ADVERTISER [address] [place] [address] [place] [address] documented as of this encounter Visit Diagnoses Not on filedocumented in this encounter Care Teams Academic Department Chair Relationship Specialty Start Date End Date Padilla Amaya MD [address] [place] [address] [place] [address] PCP - Almita CARSON 11/30/21 11/29/23 Padilla Amaya MD [address] [place] [address] [place] [address] PCP - General Internal Medicine 05/26/23 Marian Lewis BRAKE ENGINEER-AERIAL ADVERTISER [address] [place] [address] [place] [address] PCP - Almita CARSON 11/30/23 Marian Lewis BRAKE ENGINEER-AERIAL ADVERTISER [address] [place] [address] [place] [address] Nurse Practitioner Behavioral Health 05/26/23 documented as of this encounter
--- OUTSIDE RECORDS SUMMARY | 2025-09-02 16:13 | XMS_ITS | Clinical Summary ---
Author Organization [facility] Address [facility] [place] [id number] Care Team Providers Care Hard Tile Setter Name Role Phone Jose Luis THORPE MD, Padilla Fletcher Primary Care Provider [phone] Smitha Doyle DO, David L Unavailable [phone] Liza Travis APRN.EVALUATOR Unavailable [phone] Carlos Cr MD Unavailable Allergies No known active allergies Medications tamsulosin ER (FLOMAX) 0.4 mg cap Take 0.4 mg by mouth once daily. 5 02/17/20 19 Active metFORMIN (GLUCOPHAGE) 500 mg tablet Take 500 mg by mouth twice daily. 3 03/03/20 19 Active ranitidine (ZANTAC) 150 mg tablet Take 150 mg by mouth three times a day. 10 02/24/20 19 Active furosemide (LASIX) 40 mg tablet Take 40 mg by mouth as needed. 0 03/04/20 19 Active potassium chloride (K-TAB) 10 mEq tablet Take 20 mEq by mouth once daily. 1 12/01/19 19 Active ALPRAZolam (XANAX) 0.5 mg tablet Take 0.5 mg by mouth twice daily as needed. 1 02/24/20 19 Active traZODone (DESYREL) 100 mg tablet Take 100 mg by mouth at bedtime as needed. 2 03/02/20 19 Active risperiDONE (RISPERDAL) 1 mg tablet TAKE 1 TABLET BY MOUTH EVERY MORNING & TAKE 2 mg TABLET BY MOUTH AT BEDTIME 2 02/24/[address] (DEPAKOTE) 125 mg EC tablet TAKE 1 TABLET BY MOUTH THREE TIMES DAILY for mood 2 02/24/20 19 Active TRUE METRIX GLUCOSE TEST STRIP test strip USE TEST STRIP TO TEST BLOOD SUGAR TWICE DAILY 5 01/21/20 19 Active aspirin, enteric coated (ASPIRIN, ENTERIC COATED) 81 mg EC tablet Take 81 mg by mouth once daily. Active oxybutynin XL (DITROPAN XL) 5 mg 24 hr tablet Take 5 mg by mouth once daily. Active rosuvastatin (CRESTOR) 10 mg tablet Take 10 mg by mouth once daily. Active melatonin 3 mg tablet Take by mouth. Activ e lamoTRIgine (LAMICTAL) 200 mg tablet Take 200 mg by mouth once daily. Active docusate sodium (COLACE) 100 mg capsule Take 100 mg by mouth as needed. Active metoprolol succinate ER (TOPROL XL) 25 mg 24 hr tablet Take 25 mg by mouth once daily. Takes 1/2 tablet bid Active MULTIVITAMIN ORAL Take by mouth. Activ e acetaminophen (TYLENOL ARTHRITIS ORAL) Take by mouth. Active sertraline (ZOLOFT) 100 mg tablet Take 100 mg by mouth two times a day. 1 1/2 tabs daily Active magnesium oxide (MAG-OX) 400 mg (241.3 mg magnesium) tablet Take 1 tablet by mouth once daily as needed. 05/22/20 Active ipratropium (ATROVENT) 0.02 % nebulizer solution INHALE 1 vial (2.5ml) BY MOUTH via NEBULIZER EVERY 8 HOURS 04/17/20 Active ferrous sulfate 325 mg (65 mg iron) tablet Take 1 tablet by mouth once daily. 05/22/20 20 Active cholecalciferol , vitamin D3, (VITAMIN D3 ORAL) Take 1,000 mcg by mouth. Active esomeprazole (NEXIUM) 40 mg capsuleIndicati ons:Malignant neoplasm of lower third of esophagus (HCC) Take 1 capsule by mouth once daily. 90 capsule 3 06/22/20 20 Active nystatin (MYCOSTATIN) 100,000 unit/mL suspension Take 5 mL by mouth four times daily. 473 mL 1 07/19/20 20 Active hydrOXYzine HCl (ATARAX) 10 mg tablet Take 10 mg by mouth. Active ondansetron (ZOFRAN) 8 mg tabletIndicatio ns:CINV (chemotherapy-i nduced nausea and vomiting) Take 1 tablet by mouth every 8 hours as needed for nausea/vomiting. 30 tablet 3 04/25/20 22 Active esomeprazole (NEXIUM) 40 mg capsule Take 1 capsule by mouth twice daily. 60 capsule 2 08/11/20 22 Active prochlorperazin e (COMPAZINE) 10 mg tabletIndicatio ns:CINV (chemotherapy-i nduced nausea and vomiting) take 1 tablet by mouth every 6 hours as needed 30 tablet 3 08/28/20 23 Active iv contrast (will be provided with radiology test)Indication s:Malignant neoplasm of lower third of esophagus (HCC),Anemia, unspecified type CT Chest ABD/PEL-Inject, intravenously, once for 1 dose.No IV access, insert saline lock prior to the beginning of sedation, infusion, injection of imaging exam. Discontinue saline lock post exam. If Pt. has a central line or IVAD, may access for administration according to line specific nursing protocol. Once exam is complete flush line and de-access according to line specific nursing protocol in the CT contrast administration guidelines link. 1 Each 10/14/20 23 Active enteric contrast (will be provided with radiology test)Indication s:Malignant neoplasm of lower third of esophagus (HCC),Anemia, unspecified type For CT CHESTABD/PEL W IVCON Routine order Administer, As Directed One Time Only, via Oral, Rectal, both Oral and Rectal, Enteric Tube, Stoma or Indwelling Catheter, Enteric Contrast as designated per enteric contrast guidelines 1 Each 10/14/20 23 Active dicyclomine (BENTYL) 10 mg capsule Take 10 mg by mouth four times daily. Active valbenazine (INGREZZA) 80 mg capsule Take 80 mg by mouth. 03/27/20 25 026 Active rifAXIMin (XIFAXAN) 550 mg tablet Take 550 mg by mouth. Active albuterol HFA (PROVENTIL HFA, VENTOLIN HFA) 90 mcg/actuation inhaler inhale 1 puff by mouth every 4 hours as needed Active diphenoxylate-a tropine (LOMOTIL) 2.5-0.025 mg per tablet Take 1 tablet by mouth four times a day as needed. 02/23/20 25 Active cholestyramine (QUESTRAN) 4 gram packet take 1 PACKET BY MOUTH IN THE MORNING and IN THE EVENING WITH MEALS Active iv contrast (will be provided with radiology test)Indication s:Malignant neoplasm of lower third of esophagus (HCC),Esophagea l dysphagia,Anemi a, unspecified type CT Chest ABD/PEL-Inject, intravenously, once for 1 dose.No IV access, insert saline lock prior to the beginning of sedation, infusion, injection of imaging exam. Discontinue saline lock post exam. If Pt. has a central line or IVAD, may access for administration according to line specific nursing protocol. Once exam is complete flush line and de-access according to line specific nursing protocol in the CT contrast administration guidelines link. 1 each 05/10/20 25 Active enteric contrast (will be provided with radiology test)Indication s:Malignant neoplasm of lower third of esophagus (HCC),Esophagea l dysphagia,Anemi a, unspecified type For CT CHESTABD/PEL W IVCON Routine order Administer, As Directed One Time Only, via Oral, Rectal, both Oral and Rectal, Enteric Tube, Stoma or Indwelling Catheter, Enteric Contrast as designated per enteric contrast guidelines 1 each 05/10/20 25 Active multivit with min-folic acid (CENTRUM ADULT 50 PLUS) 80 mcg chew as directed Orally A ctive IBUPROFEN M ORAL Take by mouth. Activ e calcium carbonate (CALTRATE) 600 mg calcium (1,500 mg) tab Calcium Carbonate (Caltrate 600) 600 mg calcium (1,500 mg) Tablet Active 600 MG PO Daily March 24, 2023 12:00am 03/24/20 Active Active Problems Problem Noted Date Diagnosed Date CHF (congestive heart failure) 06/05/2025 Obstructive sleep apnea syndrome 06/05/2025 Chronic obstructive pulmonary disease (COPD) 05/2025 Developmental delay 07/22/2022 Malignant neoplasm of lower third of esophagus 0 04/09/2019 Hereditary and idiopathic neuropathy, unspecifie d Hearing loss Encounters Date Type Department Care Team Description 06/29/2025 2:40 PM EDT Visit (SP) Office Hematology/Oncology [address] [place] [address] [place] [address] Joshua Rodriges MD Malignant neoplasm of lower third of esophagus (HCC) (Primary Dx); Anemia, unspecified type; Esophageal dysphagia; Hyponatremia; Elevated random blood glucose level 06/29/2025 Travel 06/05/2025 10:20 AM EDT Anesthesia Event Procedures [address] [place] [address] Estephanie Wise MD Cook, Erin, AA 06/05/2025 8:46 AM EDT - 06/05/2025 11:59 PM EDT Hospital Encounter Procedures [id number] [place] [address] Alexis Jimenez DO Cook, Erin, AA Morscher, Katrina, MD Gawlik, Katie, RN Dysphagia, unspecified type [R13.10] Discharge Disposition: Home 06/05/2025 Results Follow-Up [facility] [place] [address] [place] [address] [address] [place] [address] Zachary Bone Jr., from Last 3 Months Immunizations Immunization Administration Dates Next Due COVID-19 original vaccine, f ull dose, monovalent (MODERNA) 09/04/2021 influenza (HD-IIV3) vaccine, age 65+ yr, high dose, trivalent, PF (FLUZONE HIGH-DOSE) 10/03/2021,10/01/2020,09/06/2018,08/25 influenza (HD-IIV4) vaccine, age 65+ yr, high dose, quadrivalent, PF (FLUZONE HIGH-DOSE) 10/01/2020,09/06/2018 influenza (IIV3) vaccine, tr ivalent, PF (AFLURIA, FLUARIX, FLULAVAL, FLUVIRIN, FLUZONE) 09/18/2017,09/04/2015,09/20/2013 influenza (IIV4) vaccine, ag e 6 mo - 64 yr, quadrivalent, PF (AFLURIA, FLUARIX, FLULAVAL, FLUZONE) 09/12/2019,09/18/2017,08/25/2016,09/04 influenza (ccIIV4) vaccine, age 6+ mo, quadrivalent, PF (FLUCELVAX) 10/09/2018 pneumococcal conjugate (PCV1 3) vaccine, 13 valent (PREVNAR 13) 10/09/2018,09/05/2015 pneumococcal polysaccharide (PPV23) vaccine, 23 valent (PNEUMOVAX 23) 08/25/2016 tetanus diphtheria pertussis (Tdap) vaccine, age 7+ yr (ADACEL, BOOSTRIX) 04/30/2021 zoster (ZVL) vaccine, live (ZOSTAVAX) 10/11/2014 Family History Medical History Relation Comments Heart disease Father Heart disease Mother Relation Status Comments Father Mother Social History Tobacco Use Types Packs/Day Years Used Date Smoking Tobacco: Every Day Cigarettes Last attempted to quit: 03/29/1983 Smokeless Tobacco: Never Tobacco Cessation:Ready to Q uit: Not Asked; Counseling Given: Not Answered Comments:5 cigs a day Alcohol Use Standard Drinks/Week Comments Never 0 (1 standard drink = 0.6 oz pur e alcohol) AUDIT-C Answer Date Recorded Q1: How often do you have a drink containing alc ohol? Never 06/22/2020 Average Number of Drinks Not on file 020 Frequency of Binge Drinking Not on file 05/31 PHQ-2 Answer Date Recorded PHQ-2 score 0 02/08/2021 Area Deprivation Index Answer Date Eduard rded National Score (1-100), lower number is lower ri sk 65 06/18/2023 State Score (1-10), lower number is lower risk 5 06/18/2023 Data from: https://www.neighborhoodatlas.medicine.[facility].edu/. Last address used for calculation [address] 06/18/2023 Sex and Gender Information Value Date Recorded Sex Assigned at Not on file Legal Sex Male 3:04 PM EDT Gender Identity Not on file Sexual Orientation Not on file Last Filed Vital Signs Vital Sign Reading Time Taken Comments Blood Pressure 133/86 06/29/2025 2:34 PM EDT Pulse 78 06/29/2025 2:34 PM EDT Temperature 36.4 C (97.6 F) 06/29/2025 2:34 PM EDT Respiratory Rate 16 06/29/2025 2:34 PM EDT Oxygen Saturation 93% 06/29/2025 2:34 PM EDT Inhaled Oxygen Concentration - - Weight 81 kg (178 lb 9.2 oz) 06/29/2025 2:34 PM EDT Height 175.3 cm (5' 9.02 ) 06/29/2025 2:34 PM ED T Body Mass Index 26.36 06/29/2025 2:34 PM EDT Plan of Treatment Health Maintenance Due Date Last Done Comments Abdominal Aortic Aneurysm Screening 1950 Annual PCP Team Chronic Dise ase Visit 1969 Anxiety Screening 1969 Depression Screening 1969 Hepatitis C Screening 1969 CT Colonography 1996 Cologuard (FIT-DNA) 1996 Fecal Occult Blood 1996 Sigmoidoscopy 1996 RSV Vaccine (1 - Risk 60-74 years 1-dose series) 2011 Shingrix Vaccine (2 of 3) 12/06/2014 10/11/2014 Colonoscopy 11/13/2016 11/13/2015 Colorectal Cancer Screening 11/13/2016 Lipid Screening 11/15/2023 11/15/2018, 09/01/2018 Advance Directive Discussion 11/30/2024 Medicare Advantage Annual We llness Visit 11/30/2024 Influenza Vaccine (#1) 2025 , 10/01/2020, 10/01/2020, Additional history exists Diabetes Screening 06/29/2028 06/29/2025, 0 05/22/2025, 02/22/2025, Additional history exists DTaP,Tdap,Td Vaccine (2 - Td or Tdap) 04/30/2031 04/30/2021 Pneumococcal Vaccine: 50+ Completed 2017, 08/25/2016, 09/05/2015 Medical Devices Implanted Type Area Diagnostic Imaging Manager Device Identifier Shelf Expiration Date Model / Serial / Lot Power Port Port Right: Chest Description:Power Port card scanned in 12/06/2021- hep flush Will Will Arm Procedures Procedure Name Priority Date/Time Associated Diagnosis Comments FOLATE SERUM Routine 06/29/2025 1:53 PM EDT Malignant neoplasm of lower third of esophagus (HCC) Anemia, unspecified type VITAMIN B12 BLOOD Routine 06/29/2025 1:5 3 PM EDT Malignant neoplasm of lower third of esophagus (HCC) Anemia, unspecified type FERRITIN BLD Routine 06/29/2025 1:53 PM EDT Malignant neoplasm of lower third of esophagus (HCC) Anemia, unspecified type IRON + TIBC Routine 06/29/2025 1:53 PM EDT Malignant neoplasm of lower third of esophagus (HCC) Anemia, unspecified type COMPREHENSIVE METABOLIC PANEL Routine 06/29/2025 1:53 PM EDT Malignant neoplasm of lower third of esophagus (HCC) Anemia, unspecified type CBC + DIFF Routine 06/29/2025 1:53 PM EDT Malignant neoplasm of lower third of esophagus (HCC) Anemia, unspecified type GLUCOSE, BLOOD (POC) Routine 06/05/2025 10:16 AM EDT EGD - THERAPEUTIC, EUS, OR TUBE INTERVENTIONS Routine 06/05/2025 10:04 AM EDT Dysphagia, unspecified type from Last 3 Months Results * VITAMIN B12 (06/29/2025 1:53 PM EDT) Vitamin B12 1,019 232 - 1,245 pg/mL 06/30/2025 7:05 AM EDT [facility] Blood BLOOD SPECIMEN / Unknown Venipuncture / Unknown 06/29/2025 1:53 PM EDT 06/29/2025 1:53 PM EDT us Joshua Rodriges MD LABORATORY Final Result [facility] [place] [address], * IRON AND TIBC (06/29/2025 1:53 PM EDT) Iron 140 41 - 186 ug/dL 06/30/2025 6:47 AM EDT [facility] TIBC 362 232 - 386 ug/dL 06/30/2025 6:47 AM EDT [facility] Transferrin Saturation 38.7 15.0 - 57.0 % 06/30/2025 6:47 AM EDT [facility] Blood BLOOD SPECIMEN / Unknown Venipuncture / Unknown 06/29/2025 1:53 PM EDT 06/29/2025 1:53 PM EDT us Joshua Rodriges MD LABORATORY Final Result [facility] [address] [facility] [facility] [place] [id number], [place] * FOLATE, SERUM (06/29/2025 1:53 PM EDT) [facility] Folate >20.0 >4.7 ng/mL 06/30/2025 7:05 AM EDT [facility] Comment: A result of > 20 ng/mL is not necessarily indicative of a pathologic or treatable condition: it reflects a limitation of the test methodology. Assay reference range: 4.8 to 24.2 ng/mL. Suitable for detection of folate deficiency. Reference: Folate III (Folate III) [package insert V 1.0 Swiss]. [facility], [place], [place]: September 2015. Blood BLOOD SPECIMEN / Unknown Venipuncture / Unknown 06/29/2025 1:53 PM EDT 06/29/2025 1:53 PM EDT us Joshua Rodriges MD LABORATORY Final Result Performing Organization Address City/[facility]/ZIP Co de Phone Number [facility] [address] [place] [id number], [place] * FERRITIN (06/29/2025 1:53 PM EDT) [facility] Ferritin 67.6 30.3 - 565.7 ng/mL 06/30/2025 7:05 AM EDT [facility] Blood BLOOD SPECIMEN / Unknown Venipuncture / Unknown 06/29/2025 1:53 PM EDT 06/29/2025 1:53 PM EDT us Joshua Rodriges MD LABORATORY Final Result [facility] [address] [place] [id number], [place] * (ABNORMAL) COMPREHENSIVE METABOLIC PANEL (06/29/2025 1:53 PM EDT) [facility] Protein, Total 6.8 6.3 - 8.0 g/dL 06/29/2025 2:16 PM EDT [facility] Albumin 4.2 3.9 - 4.9 g/dL 06/29/2025 2:16 PM EDT [facility] Calcium, Total 9.8 8.5 - 10.2 mg/dL 06/29/2025 2:16 PM EDT [facility] Bilirubin, Total 0.3 0.2 - 1.3 mg/dL 06/29/2025 2:16 PM EDT [facility] Alkaline Phosphatase 95 38 - 113 U/L 06/29/2025 2:16 PM T [facility] AST 13(L) 14 - 40 U/L 06/29/2025 2:16 PM EDT [facility] ALT 11 10 - 54 U/L 06/29/2025 2:16 PM [facility] Glucose 160(H) 74 - 99 mg/dL 06/29/2025 2:16 PM T [facility] Comment: The [place] Diabetes Association (ADA) provides guidance for cutoff values for fasting glucose and random glucose. The ADA defines fasting as no caloric intake for at least 8 hours. Fasting plasma glucose results between 100 to 125 mg/dL indicate increased risk for diabetes (prediabetes). Fasting plasma glucose results greater than or equal to 126 mg/dL meet the criteria for diagnosis of diabetes. In the absence of unequivocal hyperglycemia, results should be confirmed by repeat testing. In a patient with classic symptoms of hyperglycemia or hyperglycemic crisis, random plasma glucose results greater than or equal to 200 mg/dL meet the criteria for diagnosis of diabetes. Reference: Standards of Medical Care in Diabetes 2016, [place] Diabetes Association. Diabetes Care. 2016.39(Suppl 1). BUN 20 9 - 24 mg/dL 06/29/2025 2:16 PM EDT [facility] Creatinine 1.19 0.73 - 1.22 mg/dL 06/29/2025 2:16 PM T [facility] Sodium 130(L) 136 - 144 mmol/L 06/29/2025 2:16 PM T [facility] Potassium 4.6 3.7 - 5.1 mmol/L 06/29/2025 2:16 PM EDT [facility] Chloride 90(L) 98 - 107 mmol/L 06/29/2025 2:16 PM EDT [facility] CO2 32(H) 22 - 30 mmol/L 06/29/2025 2:16 PM EDT [facility] Anion Gap 8 8 - 15 mmol/L 06/29/2025 2:16 PM EDT [facility] Estimated Glomerular Filtration Rate 64 >=60 mL/min/1. 73m 06/29/2025 2:16 PM EDT [facility] Comment:Estimated Glomerular Filtration Rate (eGFR) is calculated using the 2020 CKD-EPI creatinine equation. This equation utilizes serum creatinine, sex, and age as parameters. The creatinine assay has traceable calibration to isotope dilution- mass spectrometry. Refer to KDIGO guidelines for clinical interpretation. In patients with unstable renal function, e.g. those with acute kidney injury, the eGFR may not accurately reflect actual GFR. Blood BLOOD SPECIMEN / Unknown Venipuncture / Unknown 06/29/2025 1:53 PM EDT 06/29/2025 1:53 PM EDT us Jsohua Rodriges MD LABORATORY Final Result [facility] [address] [place] [address] * (ABNORMAL) COMPLETE BLOOD COUNT AND DIFFERENTIAL (06/29/2025 1:53 PM EDT) WBC 5.23 3.70 - 11.00 k/uL 06/29/2025 2:02 PM EDT [facility] RBC 4.04(L) 4.20 - 6.00 m/uL 06/29/2025 2:02 PM EDT [facility] Hemoglobin 13.1 13.0 - 17.0 g/dL 06/29/2025 2:02 PM EDT [facility] Hematocrit 39.1 39.0 - 51.0 % 06/29/2025 2:02 PM EDT [facility] MCV 96.8 80.0 - 100.0 fL 06/29/2025 2:02 PM EDT [facility] MCH 32.4 26.0 - 34.0 pg 06/29/2025 2:02 PM EDT [facility] MCHC 33.5 30.5 - 36.0 g/dL 06/29/2025 2:02 PM EDT [facility] RDW-CV 14.9 11.5 - 15.0 % 06/29/2025 2:02 PM EDT [facility] Platelet Count 195 150 - 400 k/uL 06/29/2025 2:02 PM EDT [facility] MPV 9.0 9.0 - 12.7 fL 06/29/2025 2:02 PM EDT [facility] Neutrophils % 67.8 % 06/29/2025 2:02 PM EDT [facility] Abs Neut 3.55 1.45 - 7.50 k/uL 06/29/2025 2:02 PM EDT [facility] Lymphocytes % 20.1 % 06/29/2025 2:02 PM EDT [facility] Abs Lymph 1.05 1.00 - 4.00 k/uL 06/29/2025 2:02 PM EDT [facility] Monocytes % 8.2 % 06/29/2025 2:02 PM EDT [facility] Abs [place] 0.43 <0.87 k/uL 06/29/2025 2:02 PM EDT [facility] Eosinophils % 2.7 % 06/29/2025 2:02 PM EDT [facility] Abs Eosin 0.14 <0.46 k/uL 06/29/2025 2:02 PM EDT [facility] Basophils % 0.6 % 06/29/2025 2:02 PM EDT [facility] Abs Baso 0.03 <0.11 k/uL 06/29/2025 2:02 PM EDT [facility] Immature Granulocytes % 0.6 % 06/29/2025 2:02 PM EDT [facility] Abs Immature Gran 0.03 <0.10 k/uL 06/29/2025 2:02 PM EDT [facility] NRBC 0.0 /100 WBC 06/29/2025 2:02 PM EDT [facility] Absolute nRBC <0.01 <0.01 k/uL 06/29/2025 2:02 PM EDT [facility] Diff Type Auto 06/29/2025 2:02 PM EDT [facility] Blood BLOOD SPECIMEN / Unknown Venipuncture / Unknown 06/29/2025 1:53 PM EDT 06/29/2025 1:53 PM EDT Joshua Rodrigse MD LABORATORY Final Result [facility] [address] [place] [address] * (ABNORMAL) GLUCOSE, BLOOD (POC) (06/05/2025 10:16 AM EDT) [facility] Glucose, Point of Care 104(A) 74 - 99 mg/dL [facility] Comment: Location:[facility], [address] [place] [address], [facility] The Accu-Chek Inform II glucose meter has not been approved for testing on patients receiving intensive medical intervention or therapy and results from this point of care glucose test should not be used for patient management decisions in these cases. Inaccurate results may also occur from other interfering factors, such as N-acetylcysteine (blood concentrations of greater than 5mg/dL), galactose, extremes of hematocrit (<10 or >65), or high doses of ascorbic acid (vitamin C) greater than 3mg/dL. Consider alternate testing mechanisms (e.g. core lab, blood gas instrument) in the above situations. 06/05/2025 10:1 6 AM EDT us Estephanie Wise MD POC TESTING Final Result [facility] [address] [place], [place] * EGD - THERAPEUTIC, EUS, OR TUBE INTERVENTIONS (06/05/2025 10:04 AM EDT) Anatomical Region Laterality Modality Other 06/05/2025 10:0 4 AM EDT Narrative 06/05/2025 10:40 AM EDT [facility] Gastrointestinal Endoscopy Patient Name: Sacha Mon Procedure Date: 06/05/2025 10:04 AM Date of : 1950 Admit Type: Outpatient Age: 75 Room: [place] [address] Gender: Male Note Status: Finalized Attending MD: Alexis Jimenez MD, [id number] Procedure: Upper GI endoscopy Indications: Dysphagia Providers: Alexis Jimenez MD Patient Profile: This is a 75 year old male. Refer to note in patient chart for documentation of history and physical. Referring Physician: Zachary Bone Jr, DO (Referring MD) Medicines: Monitored Anesthesia Care Complications: No immediate complications. Requesting Provider: Procedure: Pre-Anesthesia Assessment: - Prior to the procedure, a History and Physical was performed, and patient medications and allergies were reviewed. The patient is competent. The risks and benefits of the procedure and the sedation options and risks were discussed with the patient. All questions were answered and informed consent was obtained. Patient identification and proposed procedure were verified by the physician and the nurse in the pre-procedure area in the procedure room. Mental Status Examination: alert and oriented. Airway Examination: normal oropharyngeal airway and neck mobility. Respiratory Examination: poor air movement. CV Examination: normal. Prophylactic Antibiotics: The patient does not require prophylactic antibiotics. Prior Anticoagulants: The patient has taken no anticoagulant or antiplatelet agents. ASA Grade Assessment: III - A patient with severe systemic disease. After reviewing the risks and benefits, the patient was deemed in satisfactory condition to undergo the procedure. The anesthesia plan was to use monitored anesthesia care (MAC). Immediately prior to administration of medications, the patient was re-assessed for adequacy to receive sedatives. The heart rate, respiratory rate, oxygen saturations, blood pressure, adequacy of pulmonary ventilation, and response to care were monitored throughout the procedure. The physical status of the patient was re-assessed after the procedure. After obtaining informed consent, the endoscope was passed under direct vision. Throughout the procedure, the patient's blood pressure, pulse, and oxygen saturations were monitored continuously. The [id number] was introduced through the mouth, and advanced to the second part of duodenum. The upper GI endoscopy was accomplished without difficulty. The patient tolerated the procedure well. Moderate Sedation: MAC anesthesia was administered by the anesthesia team. Total Procedure Duration: 0 hours 7 minutes 41 seconds Findings: The examined duodenum was normal. Mild portal hypertensive gastropathy was found in the gastric antrum. The cardia and gastric fundus were normal on retroflexion. A medium-sized hiatal hernia was present. One benign-appearing, intrinsic mild stenosis was found in the lower third of the esophagus. This stenosis measured 1.6 cm (inner diameter) x 1 cm (in length). The stenosis was traversed. A TTS dilator was passed through the scope. Dilation with an 18-19-20 mm balloon (to a maximum balloon size of 20 mm) dilator was performed. The dilation site was examined and showed mild mucosal disruption and moderate improvement in luminal narrowing. The exam of the esophagus was otherwise normal. Impression: - Normal examined duodenum. - Portal hypertensive gastropathy. - Medium-sized hiatal hernia. - Benign-appearing esophageal stenosis. Dilated with an 18-19-20 mm balloon (to a maximum balloon size of 20 mm). - No specimens collected. Recommendation: - Patient has a contact number available for emergencies. The signs and symptoms of potential delayed complications were discussed with the patient. Return to normal activities tomorrow. Written discharge instructions were provided to the patient. - Resume previous diet. - Continue present medications. Procedure Code(s): --- Professional --- 80156, Esophagogastroduodenoscopy, flexible, transoral; with transendoscopic balloon dilation of esophagus (less than 30 mm diameter) Diagnosis Code(s): --- Professional --- K76.6, Portal hypertension K31.89, Other diseases of stomach and duodenum K44.9, Diaphragmatic hernia without obstruction or gangrene K22.2, Esophageal obstruction R13.10, Dysphagia, unspecified CPT copyright 2020 [employer]. All rights reserved. The codes documented in this report are preliminary and upon remote medical coder review may be revised to meet current compliance requirements. Attending Participation: I personally performed the entire procedure. Scope In: 10:25:17 AM Scope Out: 10:32:58 AM MD Alexis Wolf MD 06/05/2025 10:37:45 AM This report has been signed electronically by Alexis Jimenez MD Number of Addenda: 0 Note Initiated On: 06/05/2025 10:04 AM Estimated Blood Loss: Estimated blood loss was minimal. Zachary Bone Jr., DO DIGESTIVE DISEASE Final Re sult from Last 3 Months Insurance [employer] MEDICARE ADVANT[place] Advance Directives Documents on File Type Date Recorded Patient Talent Engineer Expl anation Advance Directive(s) 04/27/2019 2:37 PM Desean dawkins Directives Care Teams Hard Tile Setter Relationship Specialty Start Date End Date Padilla Amaya II, MD [address] [facility] 110 [place] [address] PCP - General Internal Medicine 03/08/19 Zachary Bone Jr., [address] [place] [address] Referring Gastroenterology 03/08/19 Liza Travis APRN.EVALUATOR [address] [facility] [place] [address] Nurse Practitioner Hematology/Oncology 03/16/19 Carlos Cr MD [address] [facility] [place] [address] Consulting Radiation Oncology 04/08/19
--- OUTSIDE RECORDS SUMMARY | 2025-09-02 16:13 | XMS_ITS | Encounter Summary ---
Author Organization [facility] Address [address] [place] [address] Care Team Providers Care Education Reporter Name Role Phone Padilla Amaya MD Unavailable [phone] Padilla Amaya MD Primary Care Provider Marian Lewis BOTANY PROFESSOR-CORK PRESSING MACHINE OPERATOR Unavailable Marian Lewis BOTANY PROFESSOR-CORK PRESSING MACHINE OPERATOR Unavailable Encounter Details Date Type Department Care Team (Late st Contact Info) Description 05/07/2023 Abstract [facility] [place] [facility] [address] [facility] [address] [place] [address] Padilla Amaya MD [address] [facility] [address] [place] [address] Social History Tobacco Use Types [...] Office Visit [facility] [place] [facility] [address] [facility] [address] [place] [address] Rosario Nash MD [address] [place] [address] [place] [address] 09/26/2025 8:30 AM EDT [facility] [place] [facility] [address] [place] [address] [place] [phone] Karen Cruz, COLD WORKING SUPERVISOR [address] [place] [address] [place] [address] 10/04/2025 1:30 PM EST Office Visit [facility] [place] [facility] [address] [place] [address] [place] [phone] Marian Lewis, BOTANY PROFESSOR-CORK PRESSING MACHINE OPERATOR [address] [place] [address] [place] [address] documented as of this encounter Visit Diagnoses Not on filedocumented in this encounter Care Teams Education Reporter Relationship Specialty Start Date End Date Padilla Amaya MD [address] [place] [address] [place] [address] PCP - Almita CARSON 11/30/21 11/29/23 Padilla Amaya MD [address] [place] [address] [place] [address] PCP - General Internal Medicine 05/26/23 Marian Lewis BOTANY PROFESSOR-CORK PRESSING MACHINE OPERATOR [address] [place] [address] [place] [address] PCP - Almita CARSON 11/30/23 Marian Lewis BOTANY PROFESSOR-CORK PRESSING MACHINE OPERATOR [address] [place] [address] [place] [address] Nurse Practitioner Behavioral Health 05/26/23 documented as of this encounter
--- OUTSIDE RECORDS SUMMARY | 2025-09-02 16:13 | XMS_ITS | Encounter Summary ---
Author Organization [facility] Address [address] [place] [address] Care Team Providers Care Vocational Adviser Name Role Phone Padilla Amaya MD Unavailable [phone] Padilla Amaya MD Primary Care Provider [phone] Marian Lewis ASSEMBLER SEAT-CONCRETE BUCKET UNLOADER Unavailable Marian Lewis ASSEMBLER SEAT-CONCRETE BUCKET UNLOADER Unavailable Encounter Details Date Type Department Care Team (Late st Contact Info) Description 06/25/2023 Abstract [facility] [place] [facility] 112 [facility] 110 [place] [address] Padilla Amaya MD 112 [facility] 110 [place] [address] Social History Tobacco Use Types [...] How often do you attend chur or orthodoxy services? Never 06/26/2023 Do you belong to any clubs o r organizations such as anglican groups, unions, fraternal or athletic groups, or [...] Recorded Patient Health Questionnaire-2 Score 0 06/16/2023 [facility] - Occupational Stress Questionnaire Answer Date [...] place to sleep or slept in a long term (including now)? No 06/26/2023 Sex and Gender [...] Visit [facility] [place] [facility] [address] [facility] [address] [place] [address] Rosario Nash MD [address] [place] [address] [place] [address] 09/26/2025 8:30 AM EDT Office Visit [facility] [place] [facility] [address] [place] [address] [place] [address] Karen Cruz, COINING PRESS OPERATOR [address] [place] [address] [place] [address] 10/04/2025 1:30 PM EST Office Visit [facility] [place] [facility] [address] [place] [address] [place] [address] Marian Lewis, ASSEMBLER SEAT-CONCRETE BUCKET UNLOADER [address] [place] [address] [place] [address] documented as of this encounter Visit Diagnoses Not on filedocumented in this encounter Care Teams Vocational Adviser Relationship Specialty Start Date End Date Padilla Amaya MD [address] [place] [address] [place] [address] PCP - Almita CARSON 11/30/21 11/29/23 Padilla Amaya MD [address] [place] [address] [place] [address] PCP - General Internal Medicine 05/26/23 Marian Lewis, ASSEMBLER SEAT-CONCRETE BUCKET UNLOADER [address] [place] [address] [place] [address] PCP - Almita CARSON 11/30/23 Marian Lewis, ASSEMBLER SEAT-CONCRETE BUCKET UNLOADER [address] [place] [address] [place] [address] Nurse Practitioner Behavioral Health 05/26/23 documented as of this encounter
--- OUTSIDE RECORDS SUMMARY | 2025-09-02 16:13 | XMS_ITS | Clinical Summary ---
Author Organization [employer] Address [facility] [id number] [address] [place] [address] Care Team Providers Care Welder Oxyhydrogen Name Role Phone Padilla Amaya MD Primary Care Provider [phone] Allergies Active Allergy Reactions Criticality Noted Date Comments Isosorbide Mononitrate 05/25/2017 Other reaction(s): Intolerance-headache Medications aspirin 81 mg Take 1 tablet (81 mg total) by mouth in the morning. Active metFORMIN (GLUCOPHAGE) 500 mg tablet Take by mouth 2 (two) times a day. Active lamoTRIgine (LaMICtal) 150 mg tablet Take 200 mg by mouth daily. 1 8 Active risperiDONE (RisperDAL) 3 mg tablet Take 2 mg by mouth in the morning. 1MG IN THE AM AND 2MG AT HS. 8 Active rosuvastatin (CRESTOR) 10 mg tablet Take 1 tablet (10 mg total) by mouth daily. 30 tablet 11 9 Active sertraline (ZOLOFT) 50 mg tablet Take 2 tablets (100 mg total) by mouth 2 (two) times daily at 0800 and 1200. Active divalproex sprinkle (DEPAKOTE SPRINKLE) 125 mg capsule Take 1 capsule (125 mg total) by mouth 3 (three) times a day. Active tamsulosin (FLOMAX) 0.4 mg capsule Take 1 capsule (0.4 mg total) by mouth nightly. Active cholecalciferol , vitamin D3, (VITAMIN D3 ORAL) Take 2,000 Units by mouth daily. Active furosemide (LASIX) 40 mg tablet Take 0.5 tablets (20 mg total) by mouth daily. 1 Active Additional Information Patient taking differently: 40 mgoral Daily, Reported on 02/07/2025 esomeprazole (NexIUM) 40 mg capsule Take 1 capsule (40 mg total) by mouth every morning before breakfast. Active ALPRAZolam (XANAX) 0.5 mg tablet Take 1 tablet (0.5 mg total) by mouth 2 (two) times a day as needed for anxiety. Active hydrOXYzine (ATARAX) 10 mg tablet Take 1 tablet (10 mg total) by mouth in the morning and 1 tablet (10 mg total) before bedtime. Active albuterol (ACCUNEB) 0.63 mg/3 mL nebulizer solution Inhale 3 mL (0.63 mg total) by nebulization every 4 (four) hours as needed for wheezing or shortness of breath. Active dicyclomine (BENTYL) 10 mg capsule Take 1 capsule (10 mg total) by mouth in the morning and 1 capsule (10 mg total) at noon and 1 capsule (10 mg total) in the evening. Active valbenazine (INGREZZA) 80 mg capsule Take 80 mg by mouth in the morning. Active rifAXIMin (XIFAXAN) 550 mg tablet Take 1 tablet (550 mg total) by mouth every 8 (eight) hours. PRN FOR ibs Active Active Problems Problem Noted Date Diagnosed Date Edema 01/28/2018 Atherosclerotic heart diseas e of [place] coronary artery with other forms of angina pectoris 05/25/2017 Atypical angina 2017 Other forms of angina pectoris 04/24/2017 Ventricular tachycardia 04/24/2017 Palpitations 04/06/2017 Chest pain 02/03/2017 Shortness of breath 02/03/2017 Encounters Date Type Department Care Team Description 07/10/2025 Travel from Last 3 Months Immunizations Immunization Administration Dates Next Due Tdap 04/30/2021 Family History Medical History Relation Name Comments Coronary artery disease Mother Heart attack Mother Heart disease Mother Hypertension Mother Arrhythmia Sister Coronary artery disease Sister Heart attack Sister Heart disease Sister Heart failure Sister Hyperlipidemia Sister Hypertension Sister Relation Name Status Comments Mother Sister Social History Tobacco Use Types Packs/Day Years Used Date Smoking Tobacco: Former Smokeless Tobacco: Never Alcohol Use Standard Drinks/Week Comments Not Currently 0 (1 standard drink = 0.6 oz pur e alcohol) Childcare Answer Date Recorded Childcare Unknown 05/11/2019 Employment Answer Date Recorded Employment Unknown 05/11/2019 Hunger Screening Answer Date Recorded Within the past 12 months we worried whether our food would run out before we got money to buy more. Never True 06/24/2023 Within the past 12 months th e food we bought just didn't last and we didn't have money to get more. Never True 06/24/2023 Purpose - Life Answer Date Recorded Purpose and direction in life Unknown Sex and Gender Information Value Date Recorded Sex Assigned at Not on file Legal Sex Male 12:08 PM EDT Gender Identity Not on file Sexual Orientation Not on file Last Filed Vital Signs Vital Sign Reading Time Taken Comments Blood Pressure 108/60 02/07/2025 7:42 AM EDT Pulse 70 02/07/2025 7:42 AM EDT Temperature 36.8 C (98.2 F) 08/27/2021 8:35 PM EDT Respiratory Rate 15 08/28/2021 12:06 AM EDT Oxygen Saturation 96% 02/07/2025 7:42 AM EDT Inhaled Oxygen Concentration - - Weight 81.6 kg (180 lb) 02/07/2025 7:42 AM EDT Height 177.8 cm (5' 10 ) 02/07/2025 7:42 AM EDT Body Mass Index 25.83 02/07/2025 7:42 AM EDT Plan of Treatment Upcoming Encounters Date Type Department Care Team (Late st Contact Info) Description 09/13/2025 8:30 AM EDT Appointment [facility] - Radiology [address] [place] [phone] Health Maintenance Due Date Last Done Comments Diabetic Ophthalmology Exam 1951 Depression Screening 1963 Adult BMI Follow Up Plan 1969 Diabetic Foot Exam 1969 Zoster (Shingles) Vaccine (2 of 3) 12/06/20142013 Abdominal Aortic Aneurysm (A AA) Screen 2016 Fall Risk Screening 2016 COVID-19 Vaccine (2024-2 6 season) 2025 09/04/2021, 06/18/2021, 05/21/2021 Influenza Vaccine 07/31/2025 10/03/2021, , 09/12/2019, Additional history exists Statin Use: Cardiovascular 01/17/2026 01/17/2025 Statin Use: Diabetic 01/17/2026 01/17/2025 Adult BMI Screening 02/07/2026 02/07/2025 Tobacco Screening 02/07/2026 02/07/2025 DTaP,Tdap and Td Vaccines (2 - Td or Tdap) 04/30/2031 04/30/2021 Medical Devices Not on file Insurance [employer] MEDICARE MEDICAID [place] Care Teams Welder Oxyhydrogen Relationship Specialty Start Date End Date Padilla Amaya MD 112 [facility] 110 [place] [address] PCP - General Internal Medicine 04/17/17
--- OUTSIDE RECORDS SUMMARY | 2025-09-02 16:13 | XMS_ITS | Encounter Summary ---
Author Organization [facility] Address [address] [place] [address] Care Team Providers Care Flexo Press Operator Name Role Phone Padilla Amaya MD Unavailable [phone] Padilla Amaya MD Primary Care Provider [phone] Marian Lewis GLOBAL SAFETY OFFICER-SUPERVISOR MENDING Unavailable Marian Lewis GLOBAL SAFETY OFFICER-SUPERVISOR MENDING Unavailable Encounter Details Date Type Department Care Team (Late st Contact Info) Description 07/01/2023 Abstract [facility] [place] [facility] 112 [facility] [address] [place] [address] Padilla Amaya MD 112 [facility] 110 [place] [address] Social History Tobacco Use Types [...] How often do you attend chur or yarsani services? Never 06/26/2023 Do you belong to any clubs o r organizations such as judaism groups, unions, fraternal or athletic groups, or [...] Recorded Patient Health Questionnaire-2 Score 0 06/16/2023 [facility] Health - Occupational Stress Questionnaire Answer Date [...] place to sleep or slept in a fci (including now)? No 06/26/2023 Sex and Gender [...] Visit [facility] [place] [facility] [address] [facility] [address] [place] [phone] Rosario Nash MD [address] [place] [address] [place] [address] 09/26/2025 8:30 AM EDT Office Visit [facility] [place] [facility] [address] [place] [address] [place] [phone] Karen Cruz NP [address] [place] [address] [place] [address] 10/04/2025 1:30 PM EST Office Visit [facility] [place] [facility] [address] [place] [address] [place] [address] Marian Lewis, GLOBAL SAFETY OFFICER-SUPERVISOR MENDING [address] [email or web address] [address] [place] [address] documented as of this encounter Visit Diagnoses Not on filedocumented in this encounter Care Teams Flexo Press Operator Relationship Specialty Start Date End Date Padilla Amaya MD [address] [facility] [[email or web address] [address] [place] [address] PCP - Almita CARSON 11/30/21 11/29/23 Padilla Amaya MD [address] [facility] [[email or web address] [address] [place] [address] PCP - General Internal Medicine 05/26/23 Marian Lewis, GLOBAL SAFETY OFFICER-SUPERVISOR MENDING [address] [facility] [[email or web address] [address] [place] [address] PCP - Almita CARSON 11/30/23 Marian Lewis, GLOBAL SAFETY OFFICER-SUPERVISOR MENDING [address] [facility] [[email or web address] [address] [place] [address] Nurse Practitioner Behavioral Health 05/26/23 documented as of this encounter
--- OUTSIDE RECORDS SUMMARY | 2025-09-02 16:13 | XMS_ITS | Encounter Summary ---
Author Organization [facility] Address [address] [place] [address] Care Team Providers Care Brush Stainer Name Role Phone Padilla Amaya MD Unavailable [phone] Padilla Amaya MD Primary Care Provider [phone] Marian Lewis QUARRYMAN-OFFICE ASSISTANT RECEPTIONIST Unavailable Marian Lewis QUARRYMAN-OFFICE ASSISTANT RECEPTIONIST Unavailable Encounter Details Date Type Department Care [...] Office Visit [facility] [place] [facility] [address] [facility] 130 [place] [phone] Rosario Nash MD [address] [facility] 130 [place] [address] 09/26/2025 8:30 AM EDT Office Visit [facility] [place] [facility] 112 [facility] 110 [place] [address] Karen Cruz, LIME KILN TENDER 112 [facility] 110 [place] [address] 10/04/2025 1:30 PM EST Office Visit [facility] [place] [facility] 112 [facility] 160 [place] [address] Marian Lewis, QUARRYMAN-OFFICE ASSISTANT RECEPTIONIST 112 [facility] 160 [place] [address] documented as of this encounter Procedures Procedure Name Priority Date/Time Associated Diagnosis Comments CT ABD/PEL W IVCON 06/11/2023 2: 15 PM EDT documented in this encounter Results * CT ABD/PEL W IVCON (06/11/2023 2:15 PM EDT) Anatomical Region Laterality Modality Other 06/11/2023 2:15 PM EDT Narrative 06/12/2023 10:19 AM EDT * * *Final Report* * * DATE OF EXAM: Jun 11 2023 2:15PM [facility] 0530 - CT ABD/PEL W IVCON / PROCEDURE REASON: Malignant neoplasm of lower third of esophagus (HCC) * * * * Physician Interpretation * * * * RESULT: EXAMINATION: CT ABDOMEN AND PELVIS WITH IV CONTRAST CLINICAL HISTORY: Esophageal carcinoma TECHNIQUE: CT of the abdomen and pelvis was performed using standard technique, scanning from just above the dome of the diaphragm to the symphysis pubis. MQ: CTAP_3 Contrast: IV: 150 ml of Omnipaque 300 Oral: 500 ml of Omni 240 10-25ml diluted with water CT Radiation dose: Integrated Dose-length product (DLP) for this visit = 1042 mGy*cm. CT Dose Reduction Employed: Automated exposure control (AEC) COMPARISON: 02/26/2022. RESULT: Liver: 2.8 cm posterior right lobe hemangioma, stable. 7 mm left lobe hepatic cyst, image 27, series 4, stable. No new hepatic lesion. Biliary Tract: No bile duct dilation. The gallbladder appears unremarkable. Spleen: No splenomegaly. No mass. 1.6 cm soft tissue density adjacent to the splenic hilum/pancreatic tail is stable, likely related to an accessory splenule. Pancreas: No mass or ductal dilatation. Adrenal glands: No mass. Kidneys: Right kidney appears unremarkable, without evidence for enhancing mass or hydronephrosis. 1.0 cm exophytic cyst at the posterior midpole, stable. The left kidney is nonvisualized, small ovoid-shaped soft tissue within the left renal fossa may relate to a atrophic left kidney. GI Tract: No bowel wall thickening or dilation. Large fecal burden is again appreciated, unchanged. Lymph nodes: No mesenteric or retroperitoneal adenopathy. No substantial pelvic adenopathy. Mesentery/Peritoneum: No ascites or mass. Retroperitoneum: No mass. Vasculature: - Abdominal aorta and iliac arteries: Atherosclerotic calcifications without aneurysm. - Celiac and SMA: Patent. - Portal venous system (SMV, splenic vein, portal vein and branches): Patent. - Hepatic veins: Patent. Pelvis: No free fluid or pelvic mass. Nonspecific, somewhat nodular diffuse bladder wall thickening is again appreciated, unchanged. Surgical clips within the right inguinal region are noted. Bones/Soft Tissues: Degenerative change involving the lumbar spine. No osseous destructive process. Postoperative changes at the proximal left femur are incompletely imaged. Lower Thorax: A CT examination of the chest has been performed concurrently and will be dictated separately. Senior Sql Dba (topogram) images: No additional findings. IMPRESSION: 1. 1.6 cm soft tissue density adjacent to the splenic hilum is stable, likely related to accessory splenule. 2. No evidence for metastatic disease to the abdomen or pelvis. Stable hepatic lesions, compatible with hepatic cyst and hemangioma. 3. Mild, diffuse nodular bladder wall thickening is again appreciated, not substantially changed from the prior examination. Clinical correlation is recommended. Transcribe Date/Time: Jun 12 2023 9:40A Dictated by: MUNIR CORTEZ MD This examination was interpreted and the report reviewed and electronically signed by: MUNIR CORTEZ MD on Jun 12 2023 10:17AM EST Thank you for allowing us to participate in the care of your patient. Should there be any questions regarding this interpretation, please call [phone]. If you are unable to reach us at the number above, please feel free to contact [facility] at [phone]. [id number] Procedure Note Radiology, Radiologist, - 06/12/2023 * * *Final Report* * * DATE OF EXAM: Jun 11 2023 2:15PM [facility] 0530 - CT ABD/PEL W IVCON / PROCEDURE REASON: Malignant neoplasm of lower third of esophagus (HCC) * * * * Physician Interpretation * * * * RESULT: EXAMINATION: CT ABDOMEN AND PELVIS WITH IV CONTRAST CLINICAL HISTORY: Esophageal carcinoma TECHNIQUE: CT of the abdomen and pelvis was performed using standard technique, scanning from just above the dome of the diaphragm to the symphysis pubis. MQ: CTAP_3 Contrast: IV: 150 ml of Omnipaque 300 Oral: 500 ml of Omni 240 10-25ml diluted with water CT Radiation dose: Integrated Dose-length product (DLP) for this visit = 1042 mGy*cm. CT Dose Reduction Employed: Automated exposure control (AEC) COMPARISON: 02/26/2022. RESULT: Liver: 2.8 cm posterior right lobe hemangioma, stable. 7 mm left lobe hepatic cyst, image 27, series 4, stable. No new hepatic lesion. Biliary Tract: No bile duct dilation. The gallbladder appears unremarkable. Spleen: No splenomegaly. No mass. 1.6 cm soft tissue density adjacent to the splenic hilum/pancreatic tail is stable, likely related to an accessory splenule. Pancreas: No mass or ductal dilatation. Adrenal glands: No mass. Kidneys: Right kidney appears unremarkable, without evidence for enhancing mass or hydronephrosis. 1.0 cm exophytic cyst at the posterior midpole, stable. The left kidney is nonvisualized, small ovoid-shaped soft tissue within the left renal fossa may relate to a atrophic left kidney. GI Tract: No bowel wall thickening or dilation. Large fecal burden is again appreciated, unchanged. Lymph nodes: No mesenteric or retroperitoneal adenopathy. No substantial pelvic adenopathy. Mesentery/Peritoneum: No ascites or mass. Retroperitoneum: No mass. Vasculature: - Abdominal aorta and iliac arteries: Atherosclerotic calcifications without aneurysm. - Celiac and SMA: Patent. - Portal venous system (SMV, splenic vein, portal vein and branches): Patent. - Hepatic veins: Patent. Pelvis: No free fluid or pelvic mass. Nonspecific, somewhat nodular diffuse bladder wall thickening is again appreciated, unchanged. Surgical clips within the right inguinal region are noted. Bones/Soft Tissues: Degenerative change involving the lumbar spine. No osseous destructive process. Postoperative changes at the proximal left femur are incompletely imaged. Lower Thorax: A CT examination of the chest has been performed concurrently and will be dictated separately. Senior Sql Dba (topogram) images: No additional findings. IMPRESSION: 1. 1.6 cm soft tissue density adjacent to the splenic hilum is stable, likely related to accessory splenule. 2. No evidence for metastatic disease to the abdomen or pelvis. Stable hepatic lesions, compatible with hepatic cyst and hemangioma. 3. Mild, diffuse nodular bladder wall thickening is again appreciated, not substantially changed from the prior examination. Clinical correlation is recommended. Transcribe Date/Time: Jun 12 2023 9:40A Dictated by: MUNIR CORTEZ MD This examination was interpreted and the report reviewed and electronically signed by: MUNIR CORTEZ MD on Jun 12 2023 10:17AM EST Thank you for allowing us to participate in the care of your patient. Should there be any questions regarding this interpretation, please call [phone]. If you are unable to reach us at the number above, please feel free to contact [facility] at [phone]. [id number]^[email or web address]^ACN us Generic External Data Provider [facility] Final Result documented in this encounter Visit Diagnoses Not on filedocumented in this encounter Care Teams Brush Stainer Relationship Specialty Start Date End Date Padilla Amaya MD [address] [facility] 110 [place] [address] PCP - Almita CARSON 11/30/21 11/29/23 Padilla Amaya MD [address] [facility] 110 [place] [address] PCP - General Internal Medicine 05/26/23 Marian Lewis APRN-OFFICE ASSISTANT RECEPTIONIST [address] [facility] 160 [place] [address] PCP - Almita CARSON 11/30/23 Marian Lewis, QUARRYMAN-OFFICE ASSISTANT RECEPTIONIST [address] [address] Nurse Practitioner Behavioral Health 05/26/23 documented as of this encounter
--- OUTSIDE RECORDS SUMMARY | 2025-09-02 16:13 | XMS_ITS | Encounter Summary ---
Author Organization [facility] Address [address] [place] [address] Care Team Providers Care National Sales Name Role Phone Padilla Amaya MD Unavailable [phone] Padilla Amaya MD Primary Care Provider Marian Lewis PULP SCREEN OPERATOR-BUILDING CODE INSPECTOR Unavailable Marian Lewis PULP SCREEN OPERATOR-BUILDING CODE INSPECTOR Unavailable Encounter Details Date Type Department Care Team (Late st Contact Info) Description 2023 Abstract [facility] [place] [facility] [address] [facility] [facility] 110 [place] [address] Padilla Amaya MD [address] [facility] 110 [place] [address] Social History Tobacco Use Types [...] Office Visit [facility] [place] [facility] [address] [facility] [address] [place] [address] Rosario Nash MD [address] [facility] [address] [place] [address] 09/26/2025 8:30 AM EDT [facility] [place] [facility] [address] [place] [address] [place] [address] Karen Cruz, SYRUP SHED SUPERVISOR [address] [facility] [address] [place] [address] 10/04/2025 1:30 PM EST Office Visit [facility] [place] [facility] [address] [place] [address] [place] [address] Marian Lewis, PULP SCREEN OPERATOR-BUILDING CODE INSPECTOR [address] [facility] [address] [place] [address] documented as of this encounter Visit Diagnoses Not on filedocumented in this encounter Care Teams National Sales Relationship Specialty Start Date End Date Padilla Amaya MD [address] [facility] [address] [place] [address] PCP - Almita CARSON 11/30/21 11/29/23 Padilla Amaya MD [address] [facility] [address] [place] [address] PCP - General Internal Medicine 05/26/23 Marian Lewis PULP SCREEN OPERATOR-BUILDING CODE INSPECTOR [address] [place] [address] [place] [address] PCP - Almita CARSON 11/30/23 Marian Lewis PULP SCREEN OPERATOR-BUILDING CODE INSPECTOR [address] [facility] [address] [place] [address] Nurse Practitioner Behavioral Health 05/26/23 documented as of this encounter
--- OUTSIDE RECORDS SUMMARY | 2025-09-02 16:13 | XMS_ITS | Encounter Summary ---
Author Organization [facility] Address [address] [place] [address] Care Team Providers Care Billet Sawyer Name Role Phone Padilla Amaya MD Unavailable [phone] Padilla Amaya MD Primary Care Provider [phone] Marian Lewis RADIO REPAIRER DOMESTIC-POULTRY OFFAL ICER Unavailable Marian Lewis RADIO REPAIRER DOMESTIC-POULTRY OFFAL ICER Unavailable Encounter Details Date Type Department Care Team (Late st Contact Info) Description 06/23/2023 Abstract [facility] [place] [facility] 112 [facility] 110 [place] [address] Padilla Amaya MD 112 [facility] 110 [place] [address] Social History Tobacco Use Types [...] How often do you attend chur or presybeterian services? Never 06/26/2023 Do you belong to any clubs o r organizations such as shinto groups, unions, fraternal or athletic groups, or [...] Recorded Patient Health Questionnaire-2 Score 0 06/16/2023 [facility] - Occupational [...] Visit [facility] [place] [facility] [address] [facility] 130 [place] [address] Rosario Nash MD [address] [place] [address] [place] [address] 09/26/2025 8:30 AM EDT Office [facility] [place] [facility] [address] [place] [address] [place] [address] Karen Cruz, WOOD CRAFTER [address] [place] [address] [place] [address] 10/04/2025 1:30 PM EST Office Visit [facility] [place] [facility] [address] [place] [address] [place] [address] Marian Lewis, RADIO REPAIRER DOMESTIC-POULTRY OFFAL ICER [address] [place] [address] [place] [address] documented as of this encounter Visit Diagnoses Not on filedocumented in this encounter Care Teams Billet Sawyer Relationship Specialty Start Date End Date Padilla Amaya MD [address] [place] [address] [place] [address] PCP - Almita CARSON 11/30/21 11/29/23 Padilla Amaya MD [address] [facility] [address] [place] [address] PCP - General Internal Medicine 05/26/23 Marian Lewis, RADIO REPAIRER DOMESTIC-POULTRY OFFAL ICER [address] [place] [address] [place] [address] PCP - Almita CARSON 11/30/23 Marian Lewis, RADIO REPAIRER DOMESTIC-POULTRY OFFAL ICER [address] [place] [address] [place] [address] Nurse Practitioner Behavioral Health 05/26/23 documented as of this encounter
--- OUTSIDE RECORDS SUMMARY | 2025-09-02 16:13 | XMS_ITS | Encounter Summary ---
Author Organization [facility] Address [facility] [place] [address] Care Team Providers Care Toys And Games Hand Finisher Name Role Phone Jose Luis THORPE MD, Padilla Fletcher Primary Care Provider [phone] Smitha Doyle DO, David L Unavailable [phone] Liza Travis APRN.WIND PROJECTS SUPERVISOR Unavailable [phone] Carlos Cr MD Unavailable Source Comments In the event this information is protected by the Federal Confidentiality of Alcohol and Drug AbusePatient Records regulations: The Federal rules restrict any use of the information to criminally investigate or prosecute any alcohol or drug abuse patient.[facility] Encounter Details Date Type Department Care Team (Late st Contact Info) Description 06/01/2025 GI Preprocedure Call [facility] [address] [place] [address] Padilla Amaya II, MD [address] [facility] 110 [place] [address] Social History Tobacco Use Types Packs/Day Years Used Date Smoking Tobacco: Every Day Cigarettes Last attempted to quit: 03/29/1983 Smokeless Tobacco: Never Comments:5 cigs a day Alcohol Use Standard [...] is lower risk 5 06/18/2023 Data from: https://www.neighborhoodatlas.medicine.[facility].edu/. Last address used for calculation [address] 06/18/2023 Sex and Gender Information Value Date Recorded Sex Assigned at Not on file Legal Sex Male 3:04 PM EDT Gender Identity Not on file Sexual Orientation Not on file documented as of this encounter Plan of Treatment Not on file documented as of this encounter Visit Diagnoses Not on filedocumented in this encounter Care Teams Toys And Games Hand Finisher Relationship Specialty Start Date End Date Padilla Amaya II, MD [address] [facility] 110 [place] [address] PCP - General Internal Medicine 03/08/19 Zachary Bone Jr., [address] [address] Referring Gastroenterology 03/08/19 Liza Travis APRN.CNP [address] [place] [address] Nurse Practitioner Hematology/Oncology 03/16/19 Carlos Cr MD [address] [place] [address] Consulting Radiation Oncology 04/08/19 documented as of this encounter
--- OUTSIDE RECORDS SUMMARY | 2025-09-02 16:14 | XMS_ITS | Encounter Summary ---
Author Organization [facility] Address [address] [place] [address] Care Team Providers Care Used Car Renovator Name Role Phone Padilla Amaya MD Primary Care Provider [phone] Marian Lewis LOG GETTER-SLEEP TECH Unavailable Marian Lewis LOG GETTER-SLEEP TECH Unavailable Encounter Details Date Type Department Care Team (Late st Contact Info) Description 05/11/2025 Abstract [facility] [place] [facility] [address] [facility] 110 [place] [phone] Padilla Amaya MD 112 [facility] 110 [place], [place] [phone] Social History Tobacco Use Types Packs/Day Years [...] How often do you attend chur or hoahaoism services? Never 06/26/2023 Do you belong to any clubs o r organizations such as lutheran groups, unions, fraternal or athletic groups, or [...] Date Recorded Patient Health Questionnaire-2 Score 0 05/10/2025 [facility] ional Health - Occupational Stress Questionnaire Answer Date [...] Visit [facility] [place] [facility] [address] [facility] [address] [place] [phone] Rosario Nash MD [address] [facility] 130 [place] [address] 09/26/2025 8:30 AM EDT Office Visit [facility] [place] [facility] [address] [facility] [address] [place] [phone] Karen Cruz NP [address] [place] [address] [place] [address] 10/04/2025 1:30 PM EST Office Visit [facility] [place] [facility] [address] [place] [address] [place] [address] Marian Lewis, LOG GETTER-SLEEP TECH [address] [facility] 160 [place] [address] documented as of this encounter Visit Diagnoses Not on filedocumented in this encounter Care Teams Used Car Renovator Relationship Specialty Start Date End Date Padilla Amaya MD [address] [facility] [address] [place] [address] PCP - General Internal Medicine 05/26/23 Marian Lewis, LOG GETTER-SLEEP TECH [address] [facility] [address] [place] [address] PCP - Almita CARSON 11/30/23 Marian Lewis, LOG GETTER-SLEEP TECH [address] [facility] 160 [place] [address] Nurse Practitioner Behavioral Health 05/26/23 documented as of this encounter
--- OUTSIDE RECORDS SUMMARY | 2025-09-02 16:14 | XMS_ITS | Encounter Summary ---
Author Organization [facility] Address [address] [place] [address] Care Team Providers Care Hot Box Spotter Name Role Phone Padilla Amaya MD Primary Care Provider Marian Lewis SOCIAL STUDIES DEPARTMENT CHAIR-CHECK GRADER Unavailable Marian Lewis SOCIAL STUDIES DEPARTMENT CHAIR-CHECK GRADER Unavailable Encounter Details Date Type Department Care Team (Late st Contact Info) Description 07/27/2025 Abstract [facility] [place] [facility] 112 [facility] 110 [place] [phone] Padilla Amaya MD 112 [facility] 110 [place], [place] [address] Social History Tobacco Use Types Packs/Day Years [...] How often do you attend chur or shinto services? Never 06/26/2023 Do you belong to any clubs o r organizations such as buddhism groups, unions, fraternal or athletic groups, or [...] Date Recorded Patient Health Questionnaire-2 Score 0 07/03/2025 [facility] Occup[facility] ional Health - Occupational Stress [...] place to sleep or slept in a senior care (including now)? No 06/26/2023 Sex and Gender [...] Visit [facility] [place] [facility] [address] [facility] [address] [place] [phone] Rosario Nash MD [address] [facility] 130 [place] [address] 09/26/2025 8:30 AM EDT Office Visit [facility] [place] [facility] [address] [facility] [address] [place] [phone] Karen Cruz NP [address] [place] [address] [place] [address] 10/04/2025 1:30 PM EST Office Visit [facility] [place] [facility] [address] [place] [address] [place] [phone] Marian Lewis, SOCIAL STUDIES DEPARTMENT CHAIR-[facility] [address] [facility] [address] [place] [address] documented as of this encounter Visit Diagnoses Not on filedocumented in this encounter Additional Health Concerns Assessment Noted Time PHQ-9 Depression Total Score: 0 07/03/20 25 1:30 PM EDT documented as of this encounter Care Teams Hot Box Spotter Relationship Specialty Start Date End Date Padilla Amaya MD [address] [facility] [address] [place] [address] PCP - General Internal Medicine 05/26/23 Marian Lewis, SOCIAL STUDIES DEPARTMENT CHAIR-[facility] [address] [facility] [address] [place] [address] PCP - Almita CARSON 11/30/23 Marian Lewis, SOCIAL STUDIES DEPARTMENT CHAIR-[facility] [address] [facility] [address] [place] [address] Nurse Practitioner Behavioral Health 05/26/23 documented as of this encounter
--- OUTSIDE RECORDS SUMMARY | 2025-09-02 16:14 | XMS_ITS | Encounter Summary ---
Author Organization [facility] Address [address] [place] [address] Care Team Providers Care Terminal Operator Name Role Phone Padilla Amaya MD Primary Care Provider [phone] Marian Lewis SPECIALTY SALES REPRESENTATIVE-MIMEOGRAPHER Unavailable Marian Lewis SPECIALTY SALES REPRESENTATIVE-MIMEOGRAPHER Unavailable Encounter Details Date Type Department Care Team (Late st Contact Info) Description 09/29/2024 Clinisync Result Encounter [facility] External Department Unsolicited [...] any clubs o r organizations such as adventist groups, unions, fraternal or athletic groups, or [...] Date Recorded Patient Health Questionnaire-2 Score 0 09/21/2024 [facility] - Occupational Stress Questionnaire Answer Date Recorded [...] [address] [facility] [address] [place] [phone] Rosario Nash MD [address] [facility] [address] [place] [address] 09/26/2025 8:30 AM EDT Office Visit [facility] [address] [facility] [address] [place] [address] Karen Cruz NP [address] [facility] [address] [place] [address] 10/04/2025 1:30 PM EST Office Visit [facility] [place] [facility] [address] [place] [address] [place] [phone] Marian Lewis, SPECIALTY SALES REPRESENTATIVE-MIMEOGRAPHER [address] [facility] [address] [place] [address] documented as of this encounter Procedures Procedure Name Priority Date/Time Associated Diagnosis Comments CT CHEST W IV CONTRAST 09/29/2024 2:53 PM EDT documented in this encounter Results * CT chest w IV contrast (09/29/2024 2:53 PM EDT) Anatomical Region Laterality Modality Body, Chest Computed Tomogra phy 09/29/2024 2:53 PM EDT Narrative 09/30/2024 2:30 PM EDT * * *Final Report* * * DATE OF EXAM: Sep 29 2024 2:53PM [facility] 0539 - CT CHEST W IVCON / PROCEDURE REASON: multiple diagnoses * * * * Physician Interpretation * * * * RESULT: EXAMINATION: CHEST CT WITH CONTRAST CLINICAL HISTORY: Esophageal cancer. Examination for follow-up. Technique: Spiral CT acquisition of the chest from the thoracic inlet to the upper abdomen following IV contrast. MQ: CTCW_6 Contrast: 100 mL Omnip[address] Radiation dose: Integrated Dose-length product (DLP) for this visit = 1005 mGy*cm CT Dose Reduction Employed: Automated exposure control(AEC) and iterative recon Comparison: CT chest 10/14/2023; 06/11/2023 and 02/26/2022 RESULT: Limitations: None. Lines, tubes, and devices: The tip of a right chest wall port extends to the superior cavoatrial junction. Lung parenchyma and airways: There is mild left basilar groundglass opacification, likely inflammatory. There are clustered left lower lobe tree-in-bud opacities (series 4, image 109), compatible with small airways infection/inflammation. Mild bibasilar juxtapleural subsegmental atelectasis is noted. The central tracheobronchial tree is patent. There are a few nonspecific noncalcified pulmonary nodules, with claims service representative measurements detailed as follows on series 4: -Image 122, right middle lobe, 0.4 cm (unchanged) -Image 151, right lower lobe, 0.3 cm (unchanged) -Image 161, right lower lobe, 0.3 cm (unchanged) No enlarging suspicious pulmonary nodule. Pleural space: No pleural effusion. No pleural thickening. Lower neck, lymph nodes, and mediastinum: There is circumferential wall thickening of the mid and distal thoracic esophagus, likely a combination of known esophageal neoplasm and treatment related change. No supraclavicular, axillary, mediastinal or hilar lymphadenopathy. Unchanged nodularity of the thyroid. Heart, pericardium, and thoracic vessels: The thoracic aorta and main pulmonary artery are normal in caliber. The cardiac chambers are normal in size. No coronary artery atherosclerotic calcifications are noted, although the study is not optimized for coronary assessment. No pericardial effusion or thickening. Bones and soft tissues: There is a healed posterior right 12th rib fracture. Degenerative changes involve the thoracic spine. No destructive lytic or blastic osseous abnormality. Upper abdomen: Please refer to concurrently acquired and separately reported abdomen CT for findings related to the upper abdomen. Localizer images: No additional findings. IMPRESSION: 1. Clustered left lower lobe tree-in-bud opacities and mild left basilar groundglass opacification, likely infectious/inflammatory. Follow-up to resolution is suggested. 2. No lymphadenopathy or enlarging suspicious pulmonary nodule. 3. Unchanged nonspecific noncalcified pulmonary nodules measuring up to 0.4 cm. Continued attention on surveillance imaging is suggested. 4. Please refer to concurrently acquired and separately reported abdomen CT for findings related to the upper abdomen. Transcribe Date/Time: Sep 30 2024 2:15P Dictated by: NOHELIA HERRERA MD This examination was interpreted and the report reviewed and electronically signed by: NOHELIA HERRERA MD on Sep 30 2024 2:27PM EST Thank you for allowing us to participate in the care of your patient. Should there be any questions regarding this interpretation, please call [phone]. If you are unable to reach us at the number above, please feel free to contact [facility] at [phone]. [id number] Procedure Note Radiology, Radiologist, - 09/30/2024 * * *Final Report* * * DATE OF EXAM: Sep 29 2024 2:53PM [facility] 0539 - CT CHEST W IVCON / PROCEDURE REASON: multiple diagnoses * * * * Physician Interpretation * * * * RESULT: EXAMINATION: CHEST CT WITH CONTRAST CLINICAL HISTORY: Esophageal cancer. Examination for follow-up. Technique: Spiral CT acquisition of the chest from the thoracic inlet to the upper abdomen following IV contrast. MQ: CTCW_6 Contrast: 100 mL Omnipaque [address] Radiation dose: Integrated Dose-length product (DLP) for this visit = 1005 mGy*cm CT Dose Reduction Employed: Automated exposure control(AEC) and iterative recon Comparison: CT chest 10/14/2023; 06/11/2023 and 02/26/2022 RESULT: Limitations: None. Lines, tubes, and devices: The tip of a right chest wall port extends to the superior cavoatrial junction. Lung parenchyma and airways: There is mild left basilar groundglass opacification, likely inflammatory. There are clustered left lower lobe tree-in-bud opacities (series 4, image 109), compatible with small airways infection/inflammation. Mild bibasilar juxtapleural subsegmental atelectasis is noted. The central tracheobronchial tree is patent. There are a few nonspecific noncalcified pulmonary nodules, with claims service representative measurements detailed as follows on series 4: -Image 122, right middle lobe, 0.4 cm (unchanged) -Image 151, right lower lobe, 0.3 cm (unchanged) -Image 161, right lower lobe, 0.3 cm (unchanged) No enlarging suspicious pulmonary nodule. Pleural space: No pleural effusion. No pleural thickening. Lower neck, lymph nodes, and mediastinum: There is circumferential wall thickening of the mid and distal thoracic esophagus, likely a combination of known esophageal neoplasm and treatment related change. No supraclavicular, axillary, mediastinal or hilar lymphadenopathy. Unchanged nodularity of the thyroid. Heart, pericardium, and thoracic vessels: The thoracic aorta and main pulmonary artery are normal in caliber. The cardiac chambers are normal in size. No coronary artery atherosclerotic calcifications are noted, although the study is not optimized for coronary assessment. No pericardial effusion or thickening. Bones and soft tissues: There is a healed posterior right 12th rib fracture. Degenerative changes involve the thoracic spine. No destructive lytic or blastic osseous abnormality. Upper abdomen: Please refer to concurrently acquired and separately reported abdomen CT for findings related to the upper abdomen. Localizer images: No additional findings. IMPRESSION: 1. Clustered left lower lobe tree-in-bud opacities and mild left basilar groundglass opacification, likely infectious/inflammatory. Follow-up to resolution is suggested. 2. No lymphadenopathy or enlarging suspicious pulmonary nodule. 3. Unchanged nonspecific noncalcified pulmonary nodules measuring up to 0.4 cm. Continued attention on surveillance imaging is suggested. 4. Please refer to concurrently acquired and separately reported abdomen CT for findings related to the upper abdomen. Transcribe Date/Time: Sep 30 2024 2:15P Dictated by: NOHELIA HERRERA MD This examination was interpreted and the report reviewed and electronically signed by: NOHELIA HERRERA MD on Sep 30 2024 2:27PM EST Thank you for allowing us to participate in the care of your patient. Should there be any questions regarding this interpretation, please call [phone]. If you are unable to reach us at the number above, please feel free to contact [facility] at [phone]. [id number] us Generic External Data Provider IMG CT PROCEDURES Final Result documented in this encounter Visit Diagnoses Not on filedocumented in this encounter Care Teams Terminal Operator Relationship Specialty Start Date End Date Padilla Amaya MD [address] [facility] [address] [place] [address] PCP - General Internal Medicine 05/26/23 Marian Lewis APRN-MIMEOGRAPHER [address] [facility] [address] [place] [address] PCP - Almita CARSON 11/30/23 Marian Lewis APRN-MIMEOGRAPHER [address] [facility] [address] [place] [address] Nurse Practitioner Behavioral Health 05/26/23 documented as of this encounter
--- OUTSIDE RECORDS SUMMARY | 2025-09-02 16:14 | XMS_ITS | Encounter Summary ---
Author Organization [facility] Address [address] [place] [address] Care Team Providers Care Hatchery Laborer Name Role Phone Padilla Amaya MD Unavailable [phone] Padilla Amaya MD Primary Care Provider Marian Lewis MARBLEIZER-PLAYGROUND MONITOR Unavailable Marian Lewis MARBLEIZER-PLAYGROUND MONITOR Unavailable Encounter Details Date Type Department Care Team (Late st Contact Info) Description 10/15/2023 Abstract [facility] [place] [facility] [address] [facility] [address] [place] [address] Padilla Amaya MD [address] [facility] [address] [place] [address] Social History Tobacco Use Types [...] How often do you attend chur or mandaeism services? Never 06/26/2023 Do you belong to any clubs o r organizations such as amish groups, unions, fraternal or athletic groups, or [...] Recorded Patient Health Questionnaire-2 Score 0 06/16/2023 [facility] - Occupational Stress Questionnaire Answer Date [...] place to sleep or slept in a detention (including now)? No 06/26/2023 Sex and Gender [...] Visit [facility] [place] [facility] [address] [facility] [address] [place] [phone] Rosario Nash MD [address] [facility] [address] [place] [address] 09/26/2025 8:30 AM EDT Office Visit [facility] [place] [facility] [address] [place] [address] [place] [phone] Karen Cruz NP [address] [facility] [address] [place] [address] 10/04/2025 1:30 PM EST Office Visit [facility] [place] [facility] [address] [place] [address] [place] [address] Marian Lewis, MARBLEIZER-PLAYGROUND MONITOR [address] [facility] [address] [place] [address] documented as of this encounter Visit Diagnoses Not on filedocumented in this encounter Care Teams Hatchery Laborer Relationship Specialty Start Date End Date Padilla Amaya MD [address] [facility] [address] [place] [address] PCP - Almita CARSON 11/30/21 11/29/23 Padilla Amaya MD [address] [facility] [address] [place] [address] PCP - General Internal Medicine 05/26/23 Marian Lewis, MARBLEIZER-PLAYGROUND MONITOR [address] [facility] [address] [place] [address] PCP - Almita CARSON 11/30/23 Marian Lewis, MARBLEIZER-PLAYGROUND MONITOR [address] [facility] [address] [place] [address] Nurse Practitioner Behavioral Health 05/26/23 documented as of this encounter
--- OUTSIDE RECORDS SUMMARY | 2025-09-02 16:14 | XMS_ITS | Clinical Summary ---
Author Organization [facility] Healthcare Address [address] [place] [address] Care Team Providers Care Tufter Hand Name Role Phone Padilla Amaya MD Primary Care Provider [phone] Marian Lewis TRUCK AND TRANSPORT MECHANIC-COMMUNITY LIAISON OFFICER Unavailable Marian Lewis TRUCK AND TRANSPORT MECHANIC-COMMUNITY LIAISON OFFICER Unavailable Allergies No known active allergies Medications Multiple Vitamins-Minerals (Multi For Him 50+) tablet 1 (one) time each day at the same time Active glucose blood (True Metrix Blood Glucose Test) test strip Active Cholecalciferol 25 MCG (1000 UT) chewable tablet 1 (one) time each day at the same time Active acetaminophen (Tylenol 8 Hour) 650 MG ER tablet Take 650 mg by mouth every 8 (eight) hours if needed Active Accu-Chek Guide test stripIndications:T ype 2 diabetes mellitus without complications (HCC) USE DIRECTED to test BLOOD SUGAR DAILY 50 strip 3 4 Active esomeprazole (NexIUM) [address] capsuleIndications :Gastro-esophageal reflux disease without esophagitis TAKE 1 CAPSULE BY MOUTH ONCE DAILY 90 capsule 3 4 Active hydrOXYzine HCl (Atarax) 10 MG tabletIndications: Bipolar II disorder (HCC) Take 1 tablet (10 mg) by mouth in the morning and 1 tablet (10 mg) before bedtime. 180 tablet 3 4 Active albuterol HFA 90 mcg/act inhalerIndications :Chronic obstructive pulmonary disease, unspecified ([facility]) INHALE 1 PUFF EVERY 4 HOURS NEEDED 18 g 5 4 Active ipratropium (Atrovent) 0.02 % nebulizer solutionIndication s:Chronic obstructive pulmonary disease, unspecified COPD type ([facility]) INHALE 1 (ONE) vial via NEBULIZER EVERY 8 HOURS 225 mL 10 4 Active metFORMIN (Glucophage) 500 MG tabletIndications: Type 2 diabetes mellitus without complication, without long-term current use of insulin ([facility]) TAKE 1 TABLET BY MOUTH IN THE MORNING and ONE TABLET BY MOUTH IN THE EVENING WITH MEALS 200 tablet 3 5 Active rosuvastatin (Crestor) 10 MG tabletIndications: Type 2 diabetes mellitus without complication, without long-term current use of insulin ([facility]) TAKE 1 TABLET BY MOUTH IN THE MORNING 100 tablet 3 5 Active acidophilus lactobacillus capsuleIndications :Irritable bowel syndrome with diarrhea Take 1 capsule by mouth Daily 90 capsule 3 5 Active rifAXIMin (Xifaxan) 550 MG tablet Take 550 mg by mouth 1 (one) time if needed Active valbenazine tosylate (Ingrezza) 80 MG capsuleIndications :Tardive dyskinesia Take 1 capsule (80 mg) by mouth Daily 90 capsule 4 5 06/20/20 26 Active cholestyramine (Questran) 4 g packetIndications: Atherosclerosis of [place] coronary artery of [place] heart with angina pectoris take 1 PACKET BY MOUTH IN THE MORNING and IN THE EVENING WITH MEALS 60 packet 3 5 Active tamsulosin (Flomax) 0.4 MG 24 hr capsuleIndications :Benign prostatic hyperplasia with urinary frequency TAKE 1 CAPSULE BY MOUTH DAILY 90 capsule 3 5 Active furosemide (Lasix) 40 MG tabletIndications: Edema, unspecified type TAKE 1 TABLET BY MOUTH DAILY 90 tablet 3 5 Active risperiDONE (RisperDAL) 1 MG tabletIndications: Bipolar II disorder ([facility]) Take 1 tablet (1 mg) by mouth Daily 90 tablet 5 Active ibuprofen 800 MG tablet Take 800 mg by mouth in the morning and 800 mg before bedtime. Active Calcium Carb-Cholecalcifer ol (CALCIUM/VITAMIN D PO) Take by mouth Active risperiDONE (RisperDAL) 2 MG tabletIndications: Bipolar II disorder ([facility]) Take 1 tablet (2 mg) by mouth at bedtime 90 tablet 5 10/01/20 25 Active lamoTRIgine (LaMICtal) 200 MG tabletIndications: Bipolar II disorder (HCC) Take 1 tablet (200 mg) by mouth Daily 90 tablet 5 10/01/20 25 Active divalproex (Depakote) 125 MG EC tabletIndications: Bipolar II disorder (HCC) Take 1 tablet (125 mg) by mouth in the morning and 1 tablet (125 mg) in the evening and 1 tablet (125 mg) before bedtime. Do not crush, chew, or split. 270 tablet 5 10/01/20 25 Active sertraline (Zoloft) 100 MG tabletIndications: Bipolar II disorder (HCC) Take 1 tablet (100 mg) by mouth in the morning and in the evening 180 tablet 5 10/01/20 25 Active dicyclomine (Bentyl) 10 MG capsuleIndications :Irritable bowel syndrome with diarrhea Take 1 capsule (10 mg) by mouth in the morning and 1 capsule (10 mg) at noon and 1 capsule (10 mg) in the evening and 1 capsule (10 mg) before bedtime. 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 04/30/2023 Chronic obstructive pulmonary disease 04/30/2023 Diastolic congestive heart failure 04/30/2023 Edema 04/30/2023 Gastro-esophageal reflux disease without esophag itis 04/30/2023 General weakness 04/30/2023 Hemangioma of liver 04/30/2023 Hereditary peripheral neuropathy 04/30/2023 History of orchiectomy 04/30/2023 Insomnia 04/30/2023 Intellectual disability 04/30/2023 Irritable bowel syndrome 04/30/2023 Lumbar spondylosis 04/30/2023 Malignant neoplasm of lower third of esophagus 0 04/30/2023 Obstructive sleep apnea 04/30/2023 Other idiopathic scoliosis, site unspecified 11/2022 Overactive bladder 04/30/2023 Recurrent falls 04/30/2023 Small kidney 04/30/2023 Tachycardia 04/30/2023 Testicular hypofunction 04/30/2023 Unilateral primary osteoarthritis, left knee 11/2022 Unsteady gait 04/30/2023 Bipolar II disorder 04/06/2023 Generalized anxiety disorder 04/06/2023 Type 2 diabetes mellitus without complications 0 01/13/2017 Encounters Date Type Department Care Team Description 08/29/2025 Telephone [facility] [address] [place] [address] Rosario Nash MD 08/25/2025 Telephone [facility] [address] [place] [address] Rosario Nash MD 08/14/2025 Abstract [facility] [address] [place] [address] Padilla Amaya MD 08/14/2025 Telephone [facility] [place] [facility] [address] [place] [address] Padilla Amaya MD 08/11/2025 Orders Only [facility] [place] [facility] [address] [place] [address] Karen Cruz, BLAINE Acute cough 08/10/2025 Telephone [facility] [place] [facility] [address] [place] [address] Padilla Amaya MD 08/02/2025 Abstract [facility] [place] [facility] [address] [place] [address] Padilla Amaya MD 07/27/2025 Abstract [facility] [place] [facility] [address] [place] [address] Padilla Amaya MD 07/27/2025 Abstract [facility] [place] [facility] [address] [place] [address] Padilla Amaya MD 07/27/2025 Abstract [facility] [place] [facility] [address] [facility] [address] [place] [address] Padilla Amaya MD 07/13/2025 Refill [facility] [place] [facility] [address] [facility] [address] [place] [address] Karen Cruz, POCKETED SPRING MACHINE OPERATOR Irritable bowel syndrome with diarrhea 07/03/2025 1:30 PM EDT Office Visit [facility] [place] [facility] [address] [facility] [address] [place] [address] Marian Lewis, TRUCK AND TRANSPORT MECHANIC-COMMUNITY LIAISON OFFICER Bipolar II disorder (HCC) 07/03/2025 Bamboo flowsheet [facility] [place] [facility] [address] [facility] [address] [place] [address] Marian Lewis, TRUCK AND TRANSPORT MECHANIC-COMMUNITY LIAISON OFFICER 07/03/2025 Travel 06/29/2025 Clinisync Result Encounter [facility] External Department Unsolicited Provider, Generic External Data 06/28/2025 9:00 AM EDT Office Visit [facility] [place] [facility] [address] [facility] [address] [place] [address] Karen Cruz, BLAINE Dysphagia, unspecified type (Primary Dx); Primary hypertension 06/28/2025 Travel 06/05/2025 Telephone [facility] [place] [facility] [address] [facility] [address] [place] [address] Marian Lewis, TRUCK AND TRANSPORT MECHANIC-COMMUNITY LIAISON OFFICER Medication Problem 06/05/2025 Clinisync Result Encounter [facility] External Department Unsolicited Provider, Generic External Data from Last 3 Months Immunizations Immunization Administration Dates Next Due Influenza, High Dose Seasona l, Preservative Free 10/03/2021 Influenza, High-dose Seasona l, Quadrivalent, Preservative Free 10/01/2020,09/06/2018 Influenza, injectable, quadr ivalent, preservative free 09/12/2019,09/17/2017,08/25/2016 Influenza, seasonal, intrade rmal, preservative free 09/18/2017,09/04/2015,09/20/2013 Pneumococcal Conjugate PCV 13 10/09/2018, 015 Pneumococcal Polysaccharide PPSV23 08/25/2016 Tdap 04/30/2021 Zoster, live 10/11/2014 Family History Medical History Relation Name Comments COD Father Heart attack Father COD Mother Cancer Mother Coronary artery disease Mother Hypertension Mother Mental illness Mother Cancer Sibling Diabetes Sibling Hypertension Sibling Relation Name Status Comments Father Mother Sibling Other Sister Social History Tobacco Use Types Packs/Day Years Used Date Smoking Tobacco: Former Cigarettes Smokeless Tobacco: Never Tobacco Cessation:Counseling Given: Yes Alcohol Use Standard Drinks/Week Comments Never 0 [...] 06/26/2023 How often do you attend chur ch or rastafarian services? Never 06/26/2023 Do you belong to any clubs o r organizations such as latter day groups, unions, fraternal or athletic groups, or [...] Recorded Patient Health Questionnaire-2 Score 0 07/03/2025 [facility] - Occupational Stress Questionnaire Answer Date Recorded [...] Sign Reading Time Taken Comments Blood Pressure 142/74 07/03/2025 1:22 PM EDT Pulse 81 07/03/2025 1:22 PM EDT Temperature 36.5 C (97.7 F) 11/26/2023 2:36 PM EST Respiratory Rate 17 05/10/2025 9:22 AM EDT Oxygen Saturation 90% 06/28/2025 8:47 AM EDT Inhaled Oxygen Concentration - - Weight 80.7 kg (178 lb) 07/03/2025 1:22 PM EDT Height 170.2 cm (5' 7 ) 06/28/2025 8:47 AM EDT Body Mass Index 27.88 06/28/2025 8:47 AM EDT Plan of Treatment Upcoming Encounters Date Type Department Care Team (Late st Contact Info) Description 09/20/2025 2:00 PM EDT Office Visit [facility] [place] [facility] [address] [facility] [address] [place] [address] Rosario Nash MD [address] [facility] [address] [place] [address] 09/26/2025 8:30 AM EDT Office Visit [facility] [place] [facility] [address] [facility] [address] [place] [address] Karen Cruz, BLAINE [address] [facility] [address] [place] [address] 10/04/2025 1:30 PM EST Office Visit [facility] [place] [facility] [address] [facility] [address] [place] [address] Marian Lewis, TRUCK AND TRANSPORT MECHANIC-COMMUNITY LIAISON OFFICER [address] [facility] [address] [place] [address] Health Maintenance Due Date Last Done Comments CT Colonography 1950 FIT-DNA 1950 FIT 1950 FOBT 1950 Sigmoidoscopy 1950 Diabetes: Urine Protein Screening 09/01/2024 09/01/2023, 12/23/2021, 08/30/2020, Additional history exists Diabetes: Hemoglobin A1C 05/25/2025 025, 09/01/2023, 03/28/2022, Additional history exists Influenza Vaccine (#1) 2025 , 10/01/2020, 09/12/2019, Additional history exists Diabetes: Retinopathy Screening 09/22/2025 3 Colonoscopy 11/13/2025 11/13/2015 Colorectal Cancer Screening 11/13/2025 Pneumococcal Vaccine: 65+ Years Completed 10/09/2018, 08/25/2016, 09/05/2015 Procedures Procedure Name Priority Date/Time Associated Diagnosis Comments [facility] FOLATE SERPL-MCNC Routine 06/29/2025 1:53 PM EDT [facility] FERRITIN SERPL-MCNC Routine 06/29/2025 1:53 PM EDT [facility] VIT B12 SERPL-MCNC Routine 06/29/2025 1:53 PM EDT [facility] IRON+TIBC PNL SERPL Routine 06/29/2025 1:53 PM EDT [facility] COMP METAB 2000 PNL SERPL Routine 06/29/2025 1:53 PM EDT [facility] CBC W AUTO DIFF BLD Routine 06/29/2025 1:53 PM EDT UPPER GI ENDOSCOPY 06/05/2025 10 :04 AM EDT POCT GLYCOSYLATED HEMOGLOBIN (HGB A1C) Routine 02/22/2025 9:26 AM EDT Type 2 diabetes mellitus without complication, unspecified whether mcfp insulin use (HCC) DIABETIC RETINOPATHY SCREENING - OU - BOTH EYES Routine 09/22/2023 MICROALBUMIN / CREATININE URINE RATIO Routine 09/01/2023 1:17 PM EDT Type 2 diabetes mellitus without complication, without long-term current use of insulin (HCC) COLONOSCOPY Routine 11/13/2015 12:00 PM EST from Last 3 Months or Most Recently Relevant to Health Maintenance Results * [facility] VIT B12 SERPL-MCNC (06/29/2025 1:53 PM EDT) [facility] VIT B12 SERPL-MCNC 1,019 232 - 1,245 pg/mL [facility] 06/29/2025 1:53 PM EDT 06/29/2025 10:31 PM EDT Narrative CLINISYNC - 06/30/2025 7:05 AM EDT Specimen Type: BLOOD SPECIMEN Ordering Facility: [facility] Address: [address] [place] [address] Original Ordering Provider: GWENDOLYN HUANG us Generic External Data Provider CEASAR F inal Result [facility] [address] [facility] [address] [place] [address] * [facility] IRON+TIBC PNL SERPL (06/29/2025 1:53 PM EDT) [facility] IRON SERPL-MCNC 140 41 - 186 ug/dL [facility] TIBC SERPL-MCNC 362 232 - 386 ug/dL [facility] IRON/TIBC SERPL-SRTO 38.7 15.0 - 57.0 % [facility] 06/29/2025 1:53 PM EDT 06/29/2025 10:31 PM EDT Narrative CLINISYNC - 06/30/2025 6:47 AM EDT Specimen Type: BLOOD SPECIMEN Ordering Facility: [facility] Address: [address] [place] [address] Original Ordering Provider: GWENDOLYN HUANG Generic External Data Provider CLIN[facility]NC Bob inal Result Performing Organization Address [facility] Co de Phone Number CEASAR WAY [address] [place] [address] * [facility] FOLATE SERPL-MCNC (06/29/2025 1:53 PM EDT) [facility] FOLATE SERPL-MCNC >20.0 >4.7 ng/mL [facility] Comment: A result of > 20 ng/mL is not necessarily indicative of a pathologic or treatable condition: it reflects a limitation of the test methodology. Assay reference range: 4.8 to 24.2 ng/mL. Suitable for detection of folate deficiency. Reference: Folate III (Folate III) [package insert V 1.0 [place]]. [place], [place], [place]: September 2015. 06/29/2025 1:53 PM EDT 06/29/2025 10:31 PM EDT Narrative CLINISYNC - 06/30/2025 7:05 AM EDT Specimen Type: BLOOD SPECIMEN Ordering Facility: [facility] Address: [address] [place] [address] Original Ordering Provider: GWENDOLYN HUANG us Generic External Data Provider HINC Bob cortezl Result Performing Organization Address [facility] Co de Phone Number CEASAR MONROY [address] [place] [address] * [facility] FERRITIN SERPL-MCNC (06/29/2025 1:53 PM EDT) Pathologist [facility] FERRITIN SERPL-MCNC 67.6 30.3 - 565.7 ng/mL CC 06/29/2025 1:53 PM EDT 06/29/2025 10:31 PM EDT Narrative CLINISYNC - 06/30/2025 7:05 AM EDT Specimen Type: BLOOD SPECIMEN Ordering Facility: [facility] Address: [address] [place] [address] Original Ordering Provider: GWENDOLYN HUANG us Generic External Data Provider CEASAR Rojas inal Result CEASAR MONROY [address] [place] [address] * (ABNORMAL) [facility] CBC W AUTO DIFF BLD (06/29/2025 1:53 PM EDT) [facility] WBC # BLD AUTO 5.23 3.70 - 11.00 k/uL [facility] RBC # BLD AUTO 4.04(L) 4.20 - 6.00 m/uL [facility] HGB BLD-MCNC 13.1 13.0 - 17.0 g/dL [facility] HCT VFR BLD AUTO 39.1 39.0 - 51.0 % [facility] MCV RBC AUTO 96.8 80.0 - 100.0 fL [facility]CF [facility] MCH RBC QN AUTO 32.4 26.0 - 34.0 pg CCF [facility] MCHC RBC AUTO-MCNC 33.5 30.5 - 36.0 g/dL [facility] RDW RBC-RTO 14.9 11.5 - 15.0 % [facility] PLATELET # BLD AUTO 195 150 - 400 k/uL [facility] PMV BLD AUTO 9.0 9.0 - 12.7 fL [facility]CF [facility] NEUTROPHILS/LEUK NFR BLD AUTO 67.8 % [facility] NEUTROPHILS # BLD AUTO 3.55 1.45 - 7.50 k/uL [facility] LYMPHOCYTES/LEUK NFR BLD AUTO 20.1 % [facility] LYMPHOCYTES # BLD AUTO 1.05 1.00 - 4.00 k/uL [facility] MONOCYTES/LEUK NFR BLD AUTO 8.2 % [facility] MONOCYTES # BLD AUTO 0.43 <0.87 k/uL [facility] EOSINOPHIL/LEUK NFR BLD AUTO 2.7 % [facility] CCF EOSINOPHIL # BLD AUTO 0.14 <0.46 k/uL [facility] BASOPHILS/LEUK NFR BLD AUTO 0.6 % [facility]CF BASOPHILS # BLD AUTO 0.03 <0.11 k/uL [facility] IMM GRANULOCYTES/LEUK NFR BLD AUTO 0.6 % [facility] IMM GRANULOCYTES # BLD AUTO 0.03 <0.10 k/uL [facility] NRBC/100 WBC BLD-RTO 0.0 /100 WBC [facility] NRBC # BLD AUTO <0.01 <0.01 k/uL [facility] DIFFERENTIAL METHOD BLD Auto [facility] 06/29/2025 1:53 PM EDT 06/29/2025 1:53 PM EDT Narrative ELIZABETHISYNC - 06/29/2025 2:02 PM EDT Specimen Type: BLOOD SPECIMEN Ordering Facility: [facility] Address: [address] [place] [address] Original Ordering Provider: GWENDOLYN HUANG us Generic External Data Provider CEASAR soto Result Performing Organization Address City/State/[facility] Co de Phone Number CL[facility] [address] [place] [address] * (ABNORMAL) [facility] COMP METAB 2000 PNL SERPL (06/29/2025 1:53 PM EDT) [facility] PROT SERPL-MCNC 6.8 6.3 - 8.0 g/dL [facility] ALBUMIN SERPL-MCNC 4.2 3.9 - 4.9 g/dL [facility] CALCIUM SERPL-MCNC 9.8 8.5 - 10.2 mg/dL CCF [facility] BILIRUB SERPL-MCNC 0.3 0.2 - 1.3 mg/dL [facility] ALP SERPL-CCNC 95 38 - 113 U/L [facility]CF [facility] AST SERPL-CCNC 13(L) 14 - 40 U/L C[facility] CCF ALT SERPL-CCNC 11 10 - 54 U/L C[facility] GLUCOSE SERPL-MCNC 160(H) 74 - 99 mg/dL [facility] Comment: The [place] Diabetes Association (ADA) provides guidance for cutoff [...] Standards of Medical Care in Diabetes 2016, [place] [employer] Association. Diabetes Care. 2016.39(Suppl 1). [facility] BUN SERPL-MCNC 20 9 - 24 mg/dL [facility] CREAT SERPL-MCNC 1.19 0.73 - 1.22 mg/dL C[facility] SODIUM SERPL-SCNC 130(L) 136 - 144 mmol/L C[facility] POTASSIUM SERPL-SCNC 4.6 3.7 - 5.1 mmol/L [facility] CHLORIDE SERPL-SCNC 90(L) 98 - 107 mmol/L C[facility] CO2 SERPL-SCNC 32(H) 22 - 30 mmol/L C[facility] ANION GAP SERPL-SCNC 8 8 - 15 mmol/L [facility] EGFRCR SERPLBLD CKD-EPI 2020 64 >=60 mL/min/1.7 3m??? [facility] Comment:Estimated Glomerular Filtration Rate (eGFR) is calculated using the 2020 CKD-EPI creatinine equation. This equation utilizes serum creatinine, sex, and age as parameters. The creatinine assay has traceable calibration to isotope dilution- mass spectrometry. Refer to KDIGO guidelines for clinical interpretation. In patients with unstable renal function, e.g. those with acute kidney injury, the eGFR may not accurately reflect actual GFR. 06/29/2025 1:53 PM EDT 06/29/2025 1:53 PM EDT Narrative CEASAR - 06/29/2025 2:16 PM EDT Specimen Type: BLOOD SPECIMEN Ordering Facility: [facility] Address: [address] [place] [address] Original Ordering Provider: GWENDOLYN HUANG us Generic External Data Provider CEASAR soto Result CEASAR [address] [place] [address] * UPPER GI ENDOSCOPY (06/05/2025 10:04 AM EDT) Anatomical Region Laterality Modality Other 06/05/2025 10:0 4 AM EDT Narrative 06/05/2025 10:37 AM EDT [facility] Gastrointestinal Endoscopy Patient Name: Sacha Mon Procedure Date: 06/05/2025 10:04 AM Date of : 1950 Admit Type: Outpatient Age: 75 Room: [place] [address] Gender: Male Note Status: Finalized Attending MD: Alexis Jimenez MD, [id number] Procedure: Upper GI endoscopy Indications: Dysphagia Providers: [...] present medications. Procedure Code(s): --- Professional --- 13252, Esophagogastroduodenoscopy, flexible, transoral; with transendoscopic balloon dilation of esophagus (less than 30 mm diameter) Diagnosis Code(s): --- Professional --- K76.6, Portal hypertension K31.89, Other diseases of stomach and duodenum K44.9, Diaphragmatic hernia without obstruction or gangrene K22.2, Esophageal obstruction R13.10, Dysphagia, unspecified CPT copyright 2020 [place] [employer]. All rights reserved. The codes documented in this report are preliminary and upon powerhouse engineer review may be revised to meet current compliance requirements. Attending Participation: I personally performed the entire procedure. Scope In: 10:25:17 AM Scope Out: 10:32:58 AM MD Alexis Wolf MD 06/05/2025 10:37:45 AM This report has been signed electronically by Alexis Jimenez MD Number of Addenda: 0 Note Initiated On: 06/05/2025 10:04 AM Estimated Blood Loss: Estimated blood loss was minimal. Procedure Note Radiology, Radiologist, - 06/05/2025 [facility] Gastrointestinal Endoscopy Patient Name: Sacha Mon Procedure Date: 06/05/2025 10:04 AM Date of : 1950 Admit Type: Outpatient Age: 75 Room: [place] [address] Gender: Male Note Status: Finalized Attending MD: Alexis Jimenez MD, [id number] Procedure: Upper GI endoscopy Indications: Dysphagia Providers: [...] portal hypertensive gastropathy was found in the gastricantrum. The cardia and gastric fundus were normal [...] present medications. Procedure Code(s): --- Professional --- 38426, Esophagogastroduodenoscopy, flexible, transoral; with transendoscopic balloon dilation of esophagus (less than 30 mm diameter) Diagnosis Code(s): --- Professional --- K76.6, Portal hypertension K31.89, Other diseases of stomach and duodenum K44.9, Diaphragmatic hernia without obstruction or gangrene K22.2, Esophageal obstruction R13.10, Dysphagia, unspecified CPT copyright 2020 [employer]. All rights reserved. The codes documented in this report are preliminary and upon powerhouse engineer review may be revised to meet current compliance requirements. Attending Participation: I personally performed the entire procedure. Scope In: 10:25:17 AM Scope Out: 10:32:58 AM MD Alexis Wolf MD 06/05/2025 10:37:45 AM This report has been signed electronically by Alexis Jimenez MD Number of Addenda: 0 Note Initiated On: 06/05/2025 10:04 AM Estimated Blood Loss: Estimated blood loss was minimal. Generic External Data Provider [facility] IMAGING Final Result * (ABNORMAL) POCT glycosylated hemoglobin (Hb A1C) docked device (02/22/2025 9:26 AM EDT) Hemoglobin A1C 5.7 Blood Venous blood specimen / Unknown 02/22/2025 9:26 AM EDT Karen Cruz NP POINT OF CARE TEST ENTER/MARTHA T ORDERABLES Final Result * Diabetic Retinopathy Screening - OU - Both Eyes (09/22/2023) RESULTS ndr Anatomical Region Laterality Modality Head Other 09/22/2023 [place] Amaya MD OPHTH PHOTOGRAPHY Final Result * (ABNORMAL) Microalbumin / creatinine, urine ratio (09/01/2023 1:17 PM EDT) CREATININE, RANDOM URINE 40 20 - 320 mg/dL [facility] ALBUMIN, URINE 1.8 See Note: mg/dL [facility] Comment: Reference Range: Reference Range Not established ALBUMIN/CREATININE RATIO, RANDOM URINE 45(H) <30 mcg/mg creat [facility] Comment: The ADA defines abnormalities in albumin excretion as follows: Albuminuria Category Result (mcg/mg creatinine) Normal to Mildly increased <30 Moderately increased 30-299 Severely increased > OR = 300 The ADA recommends that at least two of three specimens collected within a 3-6 month period be abnormal before considering a patient to be within a diagnostic category. Urine Urine specimen obtained by clean catch procedure / Unknown 09/01/2023 1:17 PM EDT 09/01/2023 1:18 PM EDT Narrative Resulting Agency Comment Performing Organization Information Site ID: [id number] Name: [employer] [facility] Address: [address] [place] [address], [address] [place] [id number] Director: Nicholas Ramirez MD us Karen Cruz POCKETED SPRING MACHINE OPERATOR LAB URINE ORDERABLES Final R esult [facility] * Colonoscopy (11/13/2015 12:00 PM EST) Anatomical Region Laterality Modality Endoscopy 11/13/2015 12:0 0 PM EST Narrative 11/13/2015 12:00 PM EST PERFORMED AT [facility] LOCATION:[id number] Normal Procedure Note CONVERSION, GENERIC - 04/16/2023 PERFORMED AT [facility] LOCATION:[id number] Normal us Justice Chicas ENDOSCOPY PROCEDURE ORDERABLE S Final Result from Last 3 Months or Most Recently Relevant to Health Maintenance Insurance [place] MEDICARE ADVANTAGE Advance Directives Documents on File Type Date Recorded Patient Concrete Batch Plant Operator Expl anation Advance Directives and Livin g Will 09/14/2019 2019-09-14 dnc Care Teams Tufter Hand Relationship Specialty Start Date End Date Padilla Amaya MD 112 [facility] 110 [place] [address] PCP - General Internal Medicine 05/26/23 Marian Lewis, ANGELIQUE-COMMUNITY LIAISON OFFICER [address] [facility] 160 [place] [address] PCP - Almita CARSON 11/30/23 Marian Lewis APRN-COMMUNITY LIAISON OFFICER 112 [facility] 160 [place] [address] Nurse Practitioner Behavioral Health 05/26/23
--- OUTSIDE RECORDS SUMMARY | 2025-09-02 16:14 | XMS_ITS | Encounter Summary ---
Author Organization [facility] Address [address] [place] [address] Care Team Providers Care Talent Specialist Name Role Phone Padilla Amaya MD Primary Care Provider [phone] Marian Lewis WELL TESTER-EXHIBITION DESIGNER Unavailable Marian Lewis WELL TESTER-EXHIBITION DESIGNER Unavailable Encounter Details Date Type Department Care Team (Late st Contact Info) Description 08/02/2025 Abstract [facility] 112 [facility] 110 [place] [phone] Padilla Amaya MD 112 [facility] 110 [place], [place] [id number] Social History Tobacco Use Types Packs/Day Years [...] How often do you attend chur or synagogue services? Never 06/26/2023 Do you belong to any clubs o r organizations such as methodist groups, unions, fraternal or athletic groups, or [...] Recorded Patient Health Questionnaire-2 Score 0 07/03/2025 [facility] Occup[facility] ional Health - Occupational Stress [...] place to sleep or slept in a intermediate (including now)? No 06/26/2023 Sex and Gender [...] Visit [facility] [address] [facility] [address] [place] [phone] Rosario Nash MD [address] [facility] [address] [place] [address] 09/26/2025 8:30 AM EDT Office Visit [facility] [address] [facility] [address] [place] [phone] Karen Cruz NP [address] [place] [address] [place] [address] 10/04/2025 1:30 PM EST Office Visit [facility] [address] [place] [address] [place] [phone] Marian Lewis, WELL TESTER-[facility] [address] [facility] [address] [place] [address] documented as of this encounter Visit Diagnoses Not on filedocumented in this encounter Additional Health Concerns Assessment Noted Time PHQ-9 Depression Total Score: 0 07/03/20 25 1:30 PM EDT documented as of this encounter Care Teams Talent Specialist Relationship Specialty Start Date End Date Padilla Amaya MD [address] [facility] [address] [place] [address] PCP - General Internal Medicine 05/26/23 Marian Lewis, WELL TESTER-[facility] [address] [facility] [address] [place] [address] PCP - Almita CARSON 11/30/23 Marian Lewis, WELL TESTER-[facility] [address] [facility] [address] [place] [address] Nurse Practitioner Behavioral Health 05/26/23 documented as of this encounter
--- OUTSIDE RECORDS SUMMARY | 2025-09-02 16:14 | XMS_ITS | Encounter Summary ---
Author Organization [facility] Address [address] [place] [address] Care Team Providers Care Oracle Database Architect Name Role Phone Padilla Amaya MD Primary Care Provider Marian Lewis PHOTOCOMPOSITION KEYBOARD OPERATOR-ENTERPRISE SYSTEMS ADMINISTRATOR Unavailable Marian Lewis PHOTOCOMPOSITION KEYBOARD OPERATOR-ENTERPRISE SYSTEMS ADMINISTRATOR Unavailable Encounter Details Date Type Department Care Team (Late st Contact Info) Description 05/11/2025 Abstract [facility] [place] [facility] 112 [facility] 110 [place] [phone] Padilla Amaya MD 112 [facility] 110 [place], [place] [phone] Social History Tobacco Use Types Packs/Day Years [...] How often do you attend chur or mormon services? Never 06/26/2023 Do you belong to any clubs o r organizations such as faith groups, unions, fraternal or athletic groups, or [...] Recorded Patient Health Questionnaire-2 Score 0 05/10/2025 [facility] Occupat ional Health - Occupational [...] place to sleep or slept in a alf (including now)? No 06/26/2023 Sex and Gender [...] Visit [facility] [place] [facility] [address] [facility] [address] [place] [phone] Rosario Nash MD [address] [facility] 130 [place] [address] 09/26/2025 8:30 AM EDT Office Visit [facility] [address] [facility] [address] [place] [phone] Karen Cruz NP [address] [place] [address] [place] [address] 10/04/2025 1:30 PM EST Office Visit [facility] [address] [place] [address] [place] [phone] Marian Lewis, PHOTOCOMPOSITION KEYBOARD OPERATOR-ENTERPRISE SYSTEMS ADMINISTRATOR [address] [facility] [address] [place] [address] documented as of this encounter Visit Diagnoses Not on filedocumented in this encounter Care Teams Oracle Database Architect Relationship Specialty Start Date End Date Padilla Amaya MD [address] [facility] [address] [place] [address] PCP - General Internal Medicine 05/26/23 Marian Lewis, PHOTOCOMPOSITION KEYBOARD OPERATOR-ENTERPRISE SYSTEMS ADMINISTRATOR [address] [facility] [address] [place] [address] PCP - Almita CARSON 11/30/23 Marian Lewis, PHOTOCOMPOSITION KEYBOARD OPERATOR-ENTERPRISE SYSTEMS ADMINISTRATOR [address] [facility] [address] [place] [address] Nurse Practitioner Behavioral Health 05/26/23 documented as of this encounter
--- OUTSIDE RECORDS SUMMARY | 2025-09-02 16:14 | XMS_ITS | Encounter Summary ---
Author Organization [facility] Address [address] [place] [address] Care Team Providers Care Recreational Therapist Name Role Phone Padilla Amaya MD Primary Care Provider [phone] Marian Lewis NEEDLE PUNCH OPERATOR-SEWER BUILDER Unavailable Marian Lewis NEEDLE PUNCH OPERATOR-SEWER BUILDER Unavailable Encounter Details Date Type Department Care Team (Late st Contact Info) Description 08/14/2025 Abstract [facility] 112 [facility] 110 [place] [phone] Padilla Amaya MD 112 [facility] 110 [place], [place] [phone] Social History Tobacco Use Types Packs/Day Years [...] How often do you attend chur or buddhist services? Never 06/26/2023 Do you belong to any clubs o r organizations such as synagogue groups, unions, fraternal or athletic groups, or [...] Recorded Patient Health Questionnaire-2 Score 0 07/03/2025 [facility] of Occupat ional Health - [...] [facility] [place] [facility] [address] [facility] [address] [place] [phone] Rosario Nash MD [address] [facility] [address] [place] [address] 09/26/2025 8:30 AM EDT Office Visit [facility] [address] [facility] [address] [place] [phone] Karen Cruz NP [address] [place] [address] [place] [address] 10/04/2025 1:30 PM EST Office Visit [facility] [address] [place] [address] [place] [phone] Marian Lewis, NEEDLE PUNCH OPERATOR-[facility] [address] [facility] [address] [place] [address] documented as of this encounter Visit Diagnoses Not on filedocumented in this encounter Additional Health Concerns Assessment Noted Time PHQ-9 Depression Total Score: 0 07/03/20 25 1:30 PM EDT documented as of this encounter Care Teams Recreational Therapist Relationship Specialty Start Date End Date Padilla Amaya MD [address] [facility] [address] [place] [address] PCP - General Internal Medicine 05/26/23 Marian Lewis, NEEDLE PUNCH OPERATOR-[facility] [address] [facility] [address] [place] [address] PCP - Almita CARSON 11/30/23 Marian Lewis, NEEDLE PUNCH OPERATOR-[facility] [address] [facility] [address] [place] [address] Nurse Practitioner Behavioral Health 05/26/23 documented as of this encounter
--- OUTSIDE RECORDS SUMMARY | 2025-09-02 16:14 | XMS_ITS | Encounter Summary ---
Author Organization [facility] Address [address] [place] [address] Care Team Providers Care Director Of Training Name Role Phone Padilla Amaya MD Primary Care Provider Marian Lewis SCIENCE INSTRUCTOR-OPERATIONS SUPPORT ANALYST Unavailable Marian Lewis SCIENCE INSTRUCTOR-OPERATIONS SUPPORT ANALYST Unavailable Encounter Details Date Type Department Care Team (Late st Contact Info) Description 03/17/2025 Abstract [facility] [place] [facility] 112 [facility] 110 [place] [phone] Padilla Amaya MD 112 [facility] 110 [place], [place] [phone] Social History Tobacco Use Types Packs/Day Years [...] How often do you attend chur or pentecostal services? Never 06/26/2023 Do you belong to any clubs o r organizations such as baptism groups, unions, fraternal or athletic groups, or [...] Date Recorded Patient Health Questionnaire-2 Score 0 02/22/2025 [facility] of Occupat ional Health - Occupational [...] place to sleep or slept in a care home (including now)? No 06/26/2023 Sex and Gender [...] Visit [facility] [place] [facility] [address] [facility] [address] [place] [phone] Rosario Nash MD [address] [facility] [address] [place] [address] 09/26/2025 8:30 AM EDT Office Visit [facility] [address] [facility] [address] [place] [phone] Karen Cruz NP [address] [place] [address] [place] [address] 10/04/2025 1:30 PM EST Office Visit [facility] [address] [place] [address] [place] [phone] Marian Lewis, SCIENCE INSTRUCTOR-OPERATIONS SUPPORT ANALYST [address] [facility] [address] [place] [address] documented as of this encounter Visit Diagnoses Not on filedocumented in this encounter Care Teams Director Of Training Relationship Specialty Start Date End Date Padilla Amaya MD [address] [facility] [address] [place] [address] PCP - General Internal Medicine 05/26/23 Marian Lewis, SCIENCE INSTRUCTOR-OPERATIONS SUPPORT ANALYST [address] [facility] [address] [place] [address] PCP - Almita CARSON 11/30/23 Marian Lewis, SCIENCE INSTRUCTOR-OPERATIONS SUPPORT ANALYST [address] [facility] 160 [place] [address] Nurse Practitioner Behavioral Health 05/26/23 documented as of this encounter
--- OUTSIDE RECORDS SUMMARY | 2025-09-02 16:14 | XMS_ITS | Encounter Summary ---
Author Organization [facility] Address [address] [place] [address] Care Team Providers Care Oracle Reports Developer Name Role Phone Padilla Amaya MD Primary Care Provider Marian Lewis PAINT TESTER-ONLINE ADVERTISING ANALYST Unavailable Marian Lewis PAINT TESTER-ONLINE ADVERTISING ANALYST Unavailable Encounter Details Date Type Department Care Team (Late st Contact Info) Description 02/22/2025 Abstract [facility] 112 [facility] 110 [place] [phone] Padilla Amaya MD 112 [facility] 110 [place], [place] [phone] Social History Tobacco Use Types Packs/Day Years [...] How often do you attend chur or congregation services? Never 06/26/2023 Do you belong to any clubs o r organizations such as mandaen groups, unions, fraternal or athletic groups, or [...] Recorded Patient Health Questionnaire-2 Score 0 02/22/2025 [facility] of Occupat ional Health - Occupational [...] place to sleep or slept in a [place] health care facility (including now)? No 06/26/2023 Sex and Gender Information Value Date Recorded Sex Assigned at Not on file Legal Sex Male 6:44 PM EDT Gender Identity Not on file Sexual Orientation Not on file documented as of this encounter Functional Status * Over the past 2 weeks, how often have you been bothered by any of the following problems? Question Answer Date of Assessment Author Little interest or pleasure in doing things Not at all 02/22/2025 8:34 AM EDT PANTERA TORRES Feeling down, depressed, or hopeless Not at all 01/29 8:34 AM EDT PANTERA TORRES Patient Health Questionnaire-2 Score 0 01/29 8:34 AM EDT PANTERA TORRES documented as of this encounter Plan of Treatment Upcoming Encounters Date Type Department Care Team (Late st Contact Info) Description 09/20/2025 2:00 PM EDT Office Visit [facility] [address] [facility] [address] [place] [address] Rosario Nash MD 112 [facility] [address] [place] [address] 09/26/2025 8:30 AM EDT Office Visit [facility] [address] [facility] [address] [place] [phone] Karen Cruz, ARTS ADMINISTRATOR OR MANAGER [address] [place] [address] [place] [address] 10/04/2025 1:30 PM EST Office Visit [facility] [address] [facility] [address] [place] [address] Marian Lewis, PAINT TESTER-ONLINE ADVERTISING ANALYST [address] [facility] 160 [place] [address] documented as of this encounter Visit Diagnoses Not on filedocumented in this encounter Care Teams Oracle Reports Developer Relationship Specialty Start Date End Date Padilla Amaya MD [address] [facility] [address] [place] [address] PCP - General Internal Medicine 05/26/23 Marian Lewis, PAINT TESTER-ONLINE ADVERTISING ANALYST [address] [facility] [address] [place] [address] PCP - Almita CARSON 11/30/23 Marian Lewis, PAINT TESTER-ONLINE ADVERTISING ANALYST [address] [facility] [address] [place] [address] Nurse Practitioner Behavioral Health 05/26/23 documented as of this encounter
--- OUTSIDE RECORDS SUMMARY | 2025-09-02 16:14 | XMS_ITS | Encounter Summary ---
Author Organization [facility] Address [address] [place] [address] Care Team Providers Care Pin Pusher Name Role Phone Padilla Amaya MD Primary Care Provider Marian Lewis PELLET MACHINE OPERATOR-ALLIED HEALTH TEACHER Unavailable Marian Lewis PELLET MACHINE OPERATOR-ALLIED HEALTH TEACHER Unavailable Encounter Details Date Type Department Care Team (Late st Contact Info) Description 05/29/2025 Abstract [facility] [place] [facility] 112 [facility] 110 [place] [phone] Padilla Amaya MD 112 [facility] 110 [place], [place] [phone] Social History Tobacco Use Types Packs/Day Years [...] How often do you attend chur or spiritism services? Never 06/26/2023 Do you belong to any clubs o r organizations such as yarsanism groups, unions, fraternal or athletic groups, or [...] Recorded Patient Health Questionnaire-2 Score 0 05/10/2025 [facility] of Occupat ional Health - Occupational [...] Visit [facility] [place] [facility] [address] [facility] [address] [place] [phone] Rosario Nash MD [address] [facility] [address] [place] [address] 09/26/2025 8:30 AM EDT Office Visit [facility] [address] [facility] [address] [place] [phone] Karen Cruz NP [address] [place] [address] [place] [address] 10/04/2025 1:30 PM EST Office Visit [facility] [address] [place] [address] [place] [phone] Marian Lewis, PELLET MACHINE OPERATOR-ALLIED HEALTH TEACHER [address] [facility] [address] [place] [address] documented as of this encounter Visit Diagnoses Not on filedocumented in this encounter Care Teams Pin Pusher Relationship Specialty Start Date End Date Padilla Amaya MD [address] [facility] [address] [place] [address] PCP - General Internal Medicine 05/26/23 Marian Lewis, PELLET MACHINE OPERATOR-ALLIED HEALTH TEACHER [address] [facility] [address] [place] [address] PCP - Almita CARSON 11/30/23 Marian Lewis, PELLET MACHINE OPERATOR-ALLIED HEALTH TEACHER [address] [facility] 160 [place] [address] Nurse Practitioner Behavioral Health 05/26/23 documented as of this encounter
--- OUTSIDE RECORDS SUMMARY | 2025-09-02 16:14 | XMS_ITS | Encounter Summary ---
Author Organization [facility] Address [address] [place] [address] Care Team Providers Care Service Cashier Name Role Phone Padilla Amaya MD Unavailable [phone] Padilla Amaya MD Primary Care Provider [phone] Marian Lewis FLOOR FINISHER-PERSONNEL TECHNICIAN Unavailable Marian Lewis FLOOR FINISHER-PERSONNEL TECHNICIAN Unavailable Encounter Details Date Type Department Care Team (Late st Contact Info) Description 10/05/2023 Abstract [facility] [place] [facility] 112 [facility] 110 [place] [address] Padilla Amaya MD 112 [facility] 110 [place] [address] Social History Tobacco Use Types [...] How often do you attend chur or christianity services? Never 06/26/2023 Do you belong to any clubs o r organizations such as rastafari groups, unions, fraternal or athletic groups, or [...] Recorded Patient Health Questionnaire-2 Score 0 06/16/2023 [facility] of Occupat ionak Health - Occupational Stress Questionnaire Answer Date [...] place to sleep or slept in a skilled nursing (including now)? No 06/26/2023 Sex and Gender [...] Visit [facility] [place] [facility] [address] [facility] [address] [place] [phone] Rosario Nash MD [address] [place] [address] [place] [address] 09/26/2025 8:30 AM EDT Office Visit [facility] [address] [place] [address] [place] [phone] Karen Cruz NP [address] [place] [address] [place] [address] 10/04/2025 1:30 PM EST Office Visit [facility] [address] [place] [address] [place] [address] Marian Lewis, FLOOR FINISHER-PERSONNEL TECHNICIAN [address] [facility] [address] [place] [address] documented as of this encounter Visit Diagnoses Not on filedocumented in this encounter Care Teams Service Cashier Relationship Specialty Start Date End Date Padilla Amaya MD [address] [facility] [address] [place] [address] PCP - Almita CARSON 11/30/21 11/29/23 Padilla Amaya MD [address] [facility] [address] [place] [address] PCP - General Internal Medicine 05/26/23 Marian Lewis, FLOOR FINISHER-PERSONNEL TECHNICIAN [address] [facility] [address] [place] [address] PCP - Almita CARSON 11/30/23 Marian Lewis, FLOOR FINISHER-PERSONNEL TECHNICIAN [address] [facility] [address] [place] [address] Nurse Practitioner Behavioral Health 05/26/23 documented as of this encounter
--- OUTSIDE RECORDS SUMMARY | 2025-09-02 16:14 | XMS_ITS | Encounter Summary ---
Author Organization [facility] Address [facility] [place] [id number] Care Team Providers Care Vehicle Service Agent Name Role Phone Jose Luis THORPE MD, Padilla Fletcher Primary Care Provider [phone] Smitha Doyle DO, David L Unavailable [phone] Jd Argueta DO Unavailable [phone] Liza Travis APRN.AREA FIELD PERSON Unavailable [phone] Carlos Cr MD Unavailable Denise Crews RN Unavailable [phone] Source Comments In the event this information is protected by the Federal Confidentiality of Alcohol and Drug AbusePatient Records regulations: The Federal rules restrict any use of the information to criminally investigate or prosecute any alcohol or drug abuse patient.[facility] Encounter Details Date Type Department Care Team (Latest Contact Info) Description 09/13/2019 H&P External-NonCCF Provider, External, PAYudy Do not enter address information under generic External Provider. Social History Tobacco Use Types Packs/Day Years Used Date Smoking Tobacco: Former Cigarettes Q uit: 03/29/1983 Smokeless Tobacco: Never Comments:quit smoking 20 yea rs ago Alcohol Use Standard Drinks/Week Comments Never 0 (1 standard drink = 0.6 oz pur e alcohol) AUDIT-C Answer Date Recorded Q1: How often do you have a drink containing alc ohol? Never 03/16/2019 Average Number of Drinks Not on file 019 Frequency of Binge Drinking Not on file 02/28 Sex and Gender Information Value Date Recorded Sex Assigned at Not on file Legal Sex Male 3:04 PM EDT Gender Identity Not on file Sexual Orientation Not on file documented as of this encounter Plan of Treatment Not on file documented as of this encounter Visit Diagnoses Not on filedocumented in this encounter Care Teams Vehicle Service Agent Relationship Specialty Start Date End Date Padilla Amaya II, MD [address] [facility] 110 [place] [address] PCP - General Internal Medicine 03/08/19 Zachary Bone Jr., DO [address] [address] Referring Gastroenterology 03/08/19 Jd Argueta DO [address] [address] Consulting Hematology/Oncology 03/16/19 01/30/20 Liza Travis APRN.CNP [address] [place] [address] Nurse Practitioner Hematology/Oncology 03/16/19 Carlos Cr MD [address] [place] [address] Consulting Radiation Oncology 04/08/19 Denise Crews, BERE [address] [place] [address] Specialty Weatherization Operations Manager Hematology/Oncology 08/10/19 01/30/20 documented as of this encounter
--- OUTSIDE RECORDS SUMMARY | 2025-09-02 16:14 | XMS_ITS | Encounter Summary ---
Author Organization [facility] Address [address] [place] [address] Care Team Providers Care Radiological Defense Officer Name Role Phone Padilla Amaya MD Unavailable [phone] Padilla Amaya MD Primary Care Provider [phone] Marian Lewis X RAY SERVICE ENGINEER-TECHNICAL PROFESSIONAL Unavailable Marian Lewis X RAY SERVICE ENGINEER-TECHNICAL PROFESSIONAL Unavailable Encounter Details Date Type Department Care Team (Late st Contact Info) Description 09/24/2023 Abstract [facility] 112 [facility] 110 [place] [address] Padilla Amaya MD 112 [facility] 110 [place] [address] Social History Tobacco Use Types [...] Recorded Patient Health Questionnaire-2 Score 0 06/16/2023 [facility] of Occupat ionnj Health - Occupational Stress Questionnaire Answer Date [...] place to sleep or slept in a prison (including now)? No 06/26/2023 Sex and Gender [...] [facility] [address] [place] [phone] Rosario Nash MD [address] [place] [address] [place] [address] 09/26/2025 8:30 AM EDT Office Visit [facility] [address] [place] [address] [place] [phone] Karen Cruz NP [address] [place] [address] [place] [address] 10/04/2025 1:30 PM EST Office Visit [facility] [address] [place] [address] [place] [phone] Marian Lewis, X RAY SERVICE ENGINEER-TECHNICAL PROFESSIONAL [address] [facility] [address] [place] [address] documented as of this encounter Visit Diagnoses Not on filedocumented in this encounter Care Teams Radiological Defense Officer Relationship Specialty Start Date End Date Padilla Amaya MD [address] [facility] [address] [place] [address] PCP - Almita CARSON 11/30/21 11/29/23 Padilla Amaya MD [address] [facility] [address] [place] [address] PCP - General Internal Medicine 05/26/23 Marian Lewis, X RAY SERVICE ENGINEER-TECHNICAL PROFESSIONAL [address] [facility] [address] [place] [address] PCP - Almita CARSON 11/30/23 Marian Lewis, X RAY SERVICE ENGINEER-TECHNICAL PROFESSIONAL [address] [facility] [address] [place] [address] Nurse Practitioner Behavioral Health 05/26/23 documented as of this encounter
--- OUTSIDE RECORDS SUMMARY | 2025-09-02 16:14 | XMS_ITS | Encounter Summary ---
Author Organization [facility] Address [facility] [place] [id number] Care Team Providers Care Body Mechanic Apprentice Name Role Phone Jose Luis THORPE MD, Padilla Fletcher Primary Care Provider [phone] Smitha Doyle DO, David L Unavailable [phone] Jd Argueta DO Unavailable [phone] Liza Travis APRN.ELECTRONIC PARTS SALESPERSON Unavailable [phone] Carlos Cr MD Unavailable Denise Crews RN Unavailable [phone] Source Comments In the event this information is protected by the Federal Confidentiality of Alcohol and Drug AbusePatient Records regulations: The Federal rules restrict any use of the information to criminally investigate or prosecute any alcohol or drug abuse patient.[facility] Encounter Details Date Type Department Care Team (Latest Contact Info) Description 03/09/2019 H&P External-NonCCF Provider, External, EMA Do not enter address information under generic External Provider. Social History Tobacco Use Types Packs/Day Years Used Date Smoking Tobacco: Never Assessed Sex and Gender Information Value Date Recorded Sex Assigned at Not on file Legal Sex Male 3:04 PM EDT Gender Identity Not on file Sexual Orientation Not on file documented as of this encounter Plan of Treatment Not on file documented as of this encounter Visit Diagnoses Not on filedocumented in this encounter Care Teams Body Mechanic Apprentice Relationship Specialty Start Date End Date Padilla Amaya II, MD [address] [place] [address] [place] [address] PCP - General Internal Medicine 03/08/19 Zachary Bone Jr., DO [address] [address] Referring Gastroenterology 03/08/19 Jd Argueta, DO [address] [address] Consulting Hematology/Oncology 03/16/19 01/30/20 Liza Travis APRN.ELECTRONIC PARTS SALESPERSON [address] [place] [address] Nurse Practitioner Hematology/Oncology 03/16/19 Carlos Cr MD [address] [place] [address] Consulting Radiation Oncology 04/08/19 Denise Crews, RN [address] [place] [address] Specialty Baggage Handling Supervisor Hematology/Oncology 08/10/19 01/30/20 documented as of this encounter
--- OUTSIDE RECORDS SUMMARY | 2025-09-02 16:14 | XMS_ITS | Encounter Summary ---
Author Organization [facility] Address [address] [place] [address] Care Team Providers Care Oven Roaster Name Role Phone Padilla Amaya MD Primary Care Provider Marian Lewis SUPERVISOR POULTRY FARM-NURSERY TECHNICIAN Unavailable Marian Lewis SUPERVISOR POULTRY FARM-NURSERY TECHNICIAN Unavailable Encounter Details Date Type Department Care Team (Late st Contact Info) Description 07/27/2025 Abstract [facility] 112 [facility] 110 [place] [phone] Padilla Amaya MD 112 [facility] 110 [place], [place] [phone] Social History Tobacco Use Types Packs/Day Years [...] How often do you attend chur or christian services? Never 06/26/2023 Do you belong to [...] Recorded Patient Health Questionnaire-2 Score 0 07/03/2025 [facility] of Occupat ional Health - [...] Visit [facility] [address] [facility] [address] [place] [phone] Rosario Nash MD [address] [facility] 130 [place] [address] 09/26/2025 8:30 AM EDT Office Visit [facility] [address] [facility] [address] [place] [phone] Karen Cruz NP [address] [place] [address] [place] [address] 10/04/2025 1:30 PM EST Office Visit [facility] [address] [place] [address] [place] [phone] Marian Lewis, SUPERVISOR POULTRY FARM-[facility] [address] [facility] [address] [place] [address] documented as of this encounter Visit Diagnoses Not on filedocumented in this encounter Additional Health Concerns Assessment Noted Time PHQ-9 Depression Total Score: 0 07/03/20 25 1:30 PM EDT documented as of this encounter Care Teams Oven Roaster Relationship Specialty Start Date End Date Padilla Amaya MD [address] [facility] [address] [place] [address] PCP - General Internal Medicine 05/26/23 Marian Lewis, SUPERVISOR POULTRY FARM-[facility] [address] [facility] [address] [place] [address] PCP - Almita CARSON 11/30/23 Marian Lewis, SUPERVISOR POULTRY FARM-[facility] [address] [facility] [address] [place] [address] Nurse Practitioner Behavioral Health 05/26/23 documented as of this encounter
--- OUTSIDE RECORDS SUMMARY | 2025-09-02 16:14 | XMS_ITS | Encounter Summary ---
Author Organization [facility] Address [address] [place] [address] Care Team Providers Care Large Engine Assembler Name Role Phone Padilla Amaya MD Unavailable [phone] Padilla Amaya MD Primary Care Provider [phone] Marian Lewis MAORI PHYSIOTHERAPIST-TRAFFIC INVESTIGATOR Unavailable Marian Lewis MAORI PHYSIOTHERAPIST-TRAFFIC INVESTIGATOR Unavailable Encounter Details Date Type Department Care Team (Late st Contact Info) Description 10/05/2023 Abstract [facility] 112 [facility] 110 [place] [address] Padilla Amaya MD 112 [facility] 110 [place] [address] Social History Tobacco Use Types [...] How often do you attend chur or lutheran services? Never 06/26/2023 Do you belong to any clubs o r organizations such as jehovah's witness groups, unions, fraternal or athletic groups, or [...] Recorded Patient Health Questionnaire-2 Score 0 06/16/2023 [facility] Health - Occupational Stress Questionnaire Answer Date [...] [address] [facility] [address] [place] [phone] Rosario Nash MD [address] [place] [address] [place] [address] 09/26/2025 8:30 AM EDT Office Visit [facility] [address] [place] [address] [place] [phone] Karen Cruz NP [address] [place] [address] [place] [address] 10/04/2025 1:30 PM EST Office Visit [facility] [address] [place] [address] [place] [address] Marian Lewis, MAORI PHYSIOTHERAPIST-TRAFFIC INVESTIGATOR [address] [facility] 160 [place] [address] documented as of this encounter Visit Diagnoses Not on filedocumented in this encounter Care Teams Large Engine Assembler Relationship Specialty Start Date End Date Padilla Amaya MD [address] [facility] [address] [place] [address] PCP - Almita CARSON 11/30/21 11/29/23 Padilla Amaya MD [address] [facility] [address] [place] [address] PCP - General Internal Medicine 05/26/23 Marian Lewis, MAORI PHYSIOTHERAPIST-TRAFFIC INVESTIGATOR [address] [facility] [address] [place] [address] PCP - Almita CARSON 11/30/23 Marian Lewis, MAORI PHYSIOTHERAPIST-TRAFFIC INVESTIGATOR [address] [facility] [address] [place] [address] Nurse Practitioner Behavioral Health 05/26/23 documented as of this encounter
--- OUTSIDE RECORDS SUMMARY | 2025-09-02 16:14 | XMS_ITS | Encounter Summary ---
Author Organization [facility] Address [address] [place] [address] Care Team Providers Care Tail Trimmer Name Role Phone Padilla Amaya MD Primary Care Provider [phone] Marian Lewis PLANT BIOLOGY PROFESSOR-RELIGIOUS ACTIVITIES DIRECTOR Unavailable Marian Lewis PLANT BIOLOGY PROFESSOR-RELIGIOUS ACTIVITIES DIRECTOR Unavailable Encounter Details Date Type Department Care Team (Late st Contact Info) Description 12/01/2023 Orders Only [facility] [address] [place] [address] [place] [address] A, Unknown Practice [address] [place] [address] Social History Tobacco Use Types Packs/Day Years [...] often do you attend chur ch or yarsani services? Never 06/26/2023 Do you [...] Recorded Patient Health Questionnaire-2 Score 0 06/16/2023 [facility] Occup[facility] ional Health - Occupational [...] Description 09/20/2025 2:00 PM EDT Office Visit [facility] [address] [facility] [address] [place] [phone] Rosario Nash MD [address] [facility] 130 [place] [address] 09/26/2025 8:30 AM EDT Office Visit [facility] [address] [facility] [address] [place] [phone] Karen Cruz NP [address] [facility] 110 [place] [phone] 10/04/2025 1:30 PM EST Office Visit [facility] [address] [facility] [address] [place] [phone] Marian Lewis, PLANT BIOLOGY PROFESSOR-RELIGIOUS ACTIVITIES DIRECTOR [address] [facility] 160 [place] [address] documented as of this encounter Procedures Procedure Name Priority Date/Time Associated Diagnosis Comments SCANNED LABS Routine 11/28/2023 9:12 AM EST documented in this encounter Results * SCANNED LABS (11/28/2023 9:12 AM EST) us Unknown Practice A LAB CHG PERFORMABLES Final Re sult documented in this encounter Visit Diagnoses Not on filedocumented in this encounter Care Teams Tail Trimmer Relationship Specialty Start Date End Date Padilla Amaya MD [address] [facility] [address] [place] [address] PCP - General Internal Medicine 05/26/23 Marian Lewis, PLANT BIOLOGY PROFESSOR-RELIGIOUS ACTIVITIES DIRECTOR [address] [facility] 160 [place] [address] PCP - Almita CARSON 11/30/23 Marian Lewis, PLANT BIOLOGY PROFESSOR-RELIGIOUS ACTIVITIES DIRECTOR [address] [facility] 160 [place] [address] Nurse Practitioner Behavioral Health 05/26/23 documented as of this encounter
--- OUTSIDE RECORDS SUMMARY | 2025-09-02 16:14 | XMS_ITS | Encounter Summary ---
Author Organization [facility] Address [address] [place] [address] Care Team Providers Care Software Sales Representative Name Role Phone Padilla Amaya MD Primary Care Provider Marian Lewis DOLLY OPERATOR-HEALTH UNIT SUPERVISOR Unavailable Marian Lewis DOLLY OPERATOR-HEALTH UNIT SUPERVISOR Unavailable Encounter Details Date Type Department Care Team (Late st Contact Info) Description 05/05/2024 Abstract [facility] 112 [facility] 110 [place] [phone] Padilla Amaya MD 112 [facility] 110 [place], [place] [phone] Social History Tobacco Use Types Packs/Day Years [...] How often do you attend chur or baptism services? Never 06/26/2023 Do you belong to any clubs o r organizations such as tenriism groups, unions, fraternal or athletic groups, or [...] 06/16/2023 [facility] of Occupat ional Health - Occupational [...] [facility] [place] [facility] [address] [facility] [address] [place] [phone] Rosario Nash MD [address] [facility] [address] [place] [address] 09/26/2025 8:30 AM EDT Office Visit [facility] [address] [facility] [address] [place] [phone] Karen Cruz NP [address] [place] [address] [place] [address] 10/04/2025 1:30 PM EST Office Visit [facility] [address] [place] [address] [place] [phone] Marian Lewis, DOLLY OPERATOR-HEALTH UNIT SUPERVISOR [address] [facility] [address] [place] [address] documented as of this encounter Visit Diagnoses Not on filedocumented in this encounter Care Teams Software Sales Representative Relationship Specialty Start Date End Date Padilla Amaya MD [address] [facility] [address] [place] [address] PCP - General Internal Medicine 05/26/23 Marian Lewis, DOLLY OPERATOR-HEALTH UNIT SUPERVISOR [address] [facility] [address] [place] [address] PCP - Almita CARSON 11/30/23 Marian Lewis, DOLLY OPERATOR-HEALTH UNIT SUPERVISOR [address] [facility] 160 [place] [address] Nurse Practitioner Behavioral Health 05/26/23 documented as of this encounter
--- OUTSIDE RECORDS SUMMARY | 2025-09-02 16:14 | XMS_ITS | Encounter Summary ---
Author Organization [facility] Address [address] [place] [address] Care Team Providers Care Cnc Milling Machine Operator Name Role Phone Padilla Amaya MD Primary Care Provider [phone] Marian Lewis PLATE PAINTER APPRENTICE-TOOL PROCUREMENT COORDINATOR Unavailable Marian Lewis PLATE PAINTER APPRENTICE-TOOL PROCUREMENT COORDINATOR Unavailable Encounter Details Date Type Department Care Team (Late st Contact Info) Description 07/27/2025 Abstract [facility] 112 [facility] 110 [place] [phone] Padilla Amaya MD 112 [facility] 110 [place], [place] [phone] Social History Tobacco Use Types Packs/Day Years [...] How often do you attend chur or episcopalian services? Never 06/26/2023 Do you belong to any clubs o r organizations such as voodoo groups, unions, fraternal or athletic groups, or [...] Recorded Patient Health Questionnaire-2 Score 0 07/03/2025 [facility] of Occupat ional [...] Visit [facility] [place] [facility] [address] [facility] [address] [place] [phone] Rosario Nash MD [address] [facility] [address] [place] [address] 09/26/2025 8:30 AM EDT Office Visit [facility] [address] [facility] [address] [place] [phone] Karen Cruz NP [address] [place] [address] [place] [address] 10/04/2025 1:30 PM EST Office Visit [facility] [address] [place] [address] [place] [phone] Marian Lewis, PLATE PAINTER APPRENTICE-[facility] [address] [facility] [address] [place] [address] documented as of this encounter Visit Diagnoses Not on filedocumented in this encounter Additional Health Concerns Assessment Noted Time PHQ-9 Depression Total Score: 0 07/03/20 25 1:30 PM EDT documented as of this encounter Care Teams Cnc Milling Machine Operator Relationship Specialty Start Date End Date Padilla Amaya MD [address] [facility] [address] [place] [address] PCP - General Internal Medicine 05/26/23 Marian Lewis, PLATE PAINTER APPRENTICE-[facility] [address] [facility] [address] [place] [address] PCP - Almita CARSON 11/30/23 Marian Lewis, PLATE PAINTER APPRENTICE-[facility] [address] [facility] [address] [place] [address] Nurse Practitioner Behavioral Health 05/26/23 documented as of this encounter
--- OUTSIDE RECORDS SUMMARY | 2025-09-02 16:14 | XMS_ITS | Encounter Summary ---
Author Organization [facility] Address [address] [place] [address] Care Team Providers Care Can Worker Name Role Phone Jose Luis THORPE MD, Padilla Fletcher Primary Care Provider [phone] Smitha Doyle DO, David L Unavailable [phone] Liza Travis APRN.CHAIN MENDER Unavailable [phone] Carlos Cr MD Unavailable Source Comments In the event this information is protected by the Federal Confidentiality of Alcohol and Drug AbusePatient Records regulations: The Federal rules restrict any use of the information to criminally investigate or prosecute any alcohol or drug abuse patient.[facility] Encounter Details Date Type Department Care Team (Late st Contact Info) Description 04/22/2022 Lab Requisition [facility] [address] [place] [address] Judith Aceves MD [address] [place] [address] Person encountering health services to consult on behalf of another person Social History Tobacco Use Types Packs/Day Years [...] (1-100), lower number is lower ri sk 88 04/25/2022 State Score (1-10), lower number is lower risk N ot on file 04/25/2022 Data from: https://www.neighborhoodatlas.medicine.[facility].edu/. Last address used for calculation [address] 04/25/2022 Sex and Gender Information Value Date Recorded Sex Assigned at Not on file Legal Sex Male 3:04 PM EDT Gender Identity Not on file Sexual Orientation Not on file COVID-19 Exposure Response Date Recorded In the last 10 days, have yo u been in contact with someone who was confirmed or suspected to have Coronavirus/COVID-19? No / Unsure 04/25/2022 8:31 AM EDT documented as of this encounter Plan of Treatment Not on file documented as of this encounter Procedures Procedure Name Priority Date/Time Associated Diagnosis Comments SURGICAL PATHOLOGY REFERENCE LAB CONSULT Routine 04/22/2022 10:13 AM EDT Person encountering health services to consult on behalf of another person documented in this encounter Results * SURGICAL PATHOLOGY REFERENCE LAB CONSULT (04/22/2022 10:13 AM EDT) Case Report Surgical Pathology Report Case: [id number] Authorizing Provider: Judith Aceves MD Collected: 04/22/2022 10:13 AM Ordering Location: Hosp Lab Main Received: 04/22/2022 10:12 AM Pathologist: Bebo Arroyo MD Specimen: SLIDE(S), 2 SLIDES [id number] 04/23/2022 8:57 AM EDT [facility] FINAL DIAGNOSIS [facility], [place], [place]; [id number] (04/17/2022) Esophagus, distal, biopsy (A1-1, A1-2): - 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 JRG/AB/mm 04/22/2022 04/23/2022 8:57 AM EDT [facility] at 0857 EDT Diagnosis Comment Thank you for allowing us the opportunity to review this case in consultation, representing the distal esophageal biopsy from a 71-year-old male with a history of esophageal cancer, who recently underwent endoscopic evaluation. Histologic sections show fragments of specialized columnar mucosa with intestinal metaplasia, consistent with a diagnosis of Ding's esophagus. Within this metaplastic mucosa, there is an atypical glandular proliferation comprised of crowded, iijd-ly-vpag, and focally cribriforming glandular structures. Scattered dilated glands containing intraluminal necrotic debris are also identified. The cells lining this glandular proliferation demonstrate nuclear enlargement, hyperchromasia, membrane irregularity, and pseudostratificat ion. These changes extend from deep within the metaplastic glands to the overlying surface epithelium. Together, these findings cross our personal threshold for at least intramucosal adenocarcinoma arising in a background of Ding's mucosa. Correlation with the endoscopic findings suggested. Thank you for sending this case in consultation. Please do not hesitate to contact us at [phone] with questions or if additional follow up information becomes available. This case was reviewed in conjunction with the GI pathology fellow, Oscar Cunningham MD. 04/23/2022 8:57 AM EDT [facility] Clinical History Consult Requested 04/23/2022 8:57 AM EDT [facility] Performing Lab Diagnostic interpretation performed at [facility], [address] [place] [address]# [id number] Dial Polisher: Erickson Pagan M.D. 04/23/2022 8:57 AM EDT [facility] Blocks or Slides MICROSCOPE SLIDE / Unknown 04/22/2022 10:13 AM EDT 04/22/2022 10:12 AM EDT us Judith Aceves MD SURGICAL PATHOLOGY Final Result [facility] [address] [facility] [address] [place] [address], documented in this encounter Visit Diagnoses Diagnosis Person encountering health services to consult on behalf of another person Other person consulting on behalf of another person documented in this encounter Care Teams Can Worker Relationship Specialty Start Date End Date Padilla Amaya II, MD [address] [facility] 110 [place] [address] PCP - General Internal Medicine 03/08/19 Zachary Bone Jr., 703 [facility] 151 [place] [address] Referring Gastroenterology 03/08/19 Liza Travis APRN.CHAIN MENDER [address] [facility] [address] Nurse Practitioner Hematology/Oncology 03/16/19 Carlos Cr MD [address] [place] [address] Consulting Radiation Oncology 04/08/19 documented as of this encounter
--- OUTSIDE RECORDS SUMMARY | 2025-09-02 16:14 | XMS_ITS | Encounter Summary ---
Author Organization [facility] Address [address] [place] [address] Care Team Providers Care Customer Contact Representative Name Role Phone Padilla Amaya MD Unavailable [phone] Padilla Amaya MD Primary Care Provider [phone] Marian Lewis HYPERTRICHOLOGIST-DAMPENER Unavailable Marian Lewis HYPERTRICHOLOGIST-DAMPENER Unavailable Encounter Details Date Type Department Care Team (Late st Contact Info) Description 10/14/2023 Clinisync Result Encounter [facility] External Department Unsolicited [...] often do you attend chur ch or latter-day services? Never 06/26/2023 Do you belong to any clubs o r organizations such as baptist groups, unions, fraternal or athletic groups, or [...] Recorded Patient Health Questionnaire-2 Score 0 06/16/2023 [facility] Occupat ional [facility] - Occupational Stress Questionnaire Answer Date [...] place to sleep or slept in a chcf (including now)? No 06/26/2023 Sex and Gender [...] Visit [facility] [place] [facility] [address] [facility] [address] [place] [address] Rosario Nash MD [address] [facility] [address] [place] [address] 09/26/2025 8:30 AM EDT Office Visit [facility] [place] [facility] [address] [facility] [address] [place] [address] Karen Cruz SENIOR MANAGEMENT CONSULTANT [address] [facility] [address] [place] [address] 10/04/2025 1:30 PM EST Office Visit [facility] [place] [facility] [address] [facility] [address] [place] [address] Marian Lewis, HYPERTRICHOLOGIST-DAMPENER [address] [facility] [address] [place] [address] documented as of this encounter Procedures Procedure Name Priority Date/Time Associated Diagnosis Comments CT CHEST W IV CONTRAST 10/14/2023 9:23 AM EST documented in this encounter Results * CT chest w IV contrast (10/14/2023 9:23 AM EST) Anatomical Region Laterality Modality Body, Chest Computed Tomogra phy 10/14/2023 9:23 AM EST Narrative 10/15/2023 12:00 PM EST * * *Final Report* * * DATE OF EXAM: Oct 14 2023 9:23AM [facility] 0539 - CT CHEST W IVCON / [...] Dose-length product (DLP) for this visit = 1048 mGy*cm CT Dose Reduction Employed: Automated exposure control (AEC) Comparison: CT chest 06/11/2023 RESULT: Limitations: Respiratory motion. Lines, tubes, and devices: Right-sided Port-A-Cath remains in place. Lung parenchyma , airways, and pleural space: No consolidative process or pleural effusion. The trachea and major airways appear patent. Mild, diffuse bronchial wall thickening is again appreciated. Postoperative focal area of cystic bronchiectasis within the right upper lobe, image 58, series 4, stable. Less than 3 mm right lower lobe nodule is not clearly identified on the prior study, image 113, series 4. Additional 3 mm or less right-sided nodules, images 105 and 123, series, stable. The previously described newly apparent 4 mm left lower lobe nodule is not clearly appreciated on the current examination. Lower neck, lymph nodes, and mediastinum: Heterogeneous enlargement of the thyroid gland is again appreciated. 2.1 cm right lobe thyroid hypodensity, stable. No substantial supraclavicular or axillary lymphadenopathy is appreciated. No substantial mediastinal or hilar adenopathy is identified. Moderate, diffuse esophageal wall thickening is again appreciated, stable. Heart, pericardium, and thoracic vessels: The thoracic aorta is normal in caliber. A small amount of coronary artery calcification is appreciated. No substantial pericardial effusion. Bones/Soft Tissues: Mild degenerative change within the thoracic spine. No osseous destructive process. Upper Abdomen: A CT examination of the abdomen has been performed concurrently and will be dictated separately. Street Light Servicer Supervisor (topogram) images: No additional findings. IMPRESSION: 1. 3 mm right lower lobe nodule is not clearly identified on the prior examination of 06/11/2023. Correlation with continued follow-up examinations is recommended. 2. A previously described, newly apparent 4 mm left lower lobe nodule is no longer clearly appreciated. 3. Additional subcentimeter right sided nodules, unchanged. 4. No substantial intrathoracic adenopathy is appreciated.. COMMUNICATION:? Results will be communicated with the ordering provider via [employer] staff message by [employer] within 2 business days of report finalization. Transcribe Date/Time: Oct 15 2023 9:57A Dictated by: MUNIR CORTEZ MD This examination was interpreted and the report reviewed and electronically signed by: MUNIR CORTEZ MD on Oct 15 2023 11:58AM EST Thank you for allowing us to participate in the care of your patient. Should there be any questions regarding this interpretation, please call [phone]. If you are unable to reach us at the number above, please feel free to contact [facility] at [phone]. [id number] Procedure Note Radiology, Radiologist, - 10/15/2023 * * *Final Report* * * DATE OF EXAM: Oct 14 2023 9:23AM [facility] 0539 - CT CHEST W IVCON / [...] Dose-length product (DLP) for this visit = 1048 mGy*cm CT Dose Reduction Employed: Automated exposure control (AEC) Comparison: CT chest 06/11/2023 RESULT: Limitations: Respiratory motion. Lines, tubes, and devices: Right-sided Port-A-Cath remains in place. Lung parenchyma , airways, and pleural space: No consolidative process or pleural effusion. The trachea and major airways appear patent. Mild, diffuse bronchial wall thickening is again appreciated. Postoperative focal area of cystic bronchiectasis within the right upper lobe, image 58, series 4, stable. Less than 3 mm right lower lobe nodule is not clearly identified on the prior study, image 113, series 4. Additional 3 mm or less right-sided nodules, images 105 and 123, series, stable. The previously described newly apparent 4 mm left lower lobe nodule is not clearly appreciated on the current examination. Lower neck, lymph nodes, and mediastinum: Heterogeneous enlargement of the thyroid gland is again appreciated. 2.1 cm right lobe thyroid hypodensity, stable. No substantial supraclavicular or axillary lymphadenopathy is appreciated. No substantial mediastinal or hilar adenopathy is identified. Moderate, diffuse esophageal wall thickening is again appreciated, stable. Heart, pericardium, and thoracic vessels: The thoracic aorta is normal in caliber. A small amount of coronary artery calcification is appreciated. No substantial pericardialeffusion. Bones/Soft Tissues: Mild degenerative change within the thoracic spine. No osseous destructive process. Upper Abdomen: A CT examination of the abdomen has been performed concurrently and will be dictated separately. Street Light Servicer Supervisor (topogram) images: No additional findings. IMPRESSION: 1. 3 mm right lower lobe nodule is not clearly identified on the prior examination of 06/11/2023. Correlation with continued follow-up examinations is recommended. 2. A previously described, newly apparent 4 mm left lower lobe nodule is no longer clearly appreciated. 3. Additional subcentimeter right sided nodules, unchanged. 4. No substantial intrathoracic adenopathy is appreciated.. COMMUNICATION:? Results will be communicated with the ordering provider via [employer] staff message by [employer] within 2 business days of report finalization. Transcribe Date/Time: Oct 15 2023 9:57A Dictated by: MUNIR CORTEZ MD This examination was interpreted and the report reviewed and electronically signed by: MUNIR CORTEZ MD on Oct 15 2023 11:58AM EST Thank you for allowing us to participate in the care of your patient. Should there be any questions regarding this interpretation, please call [phone]. If you are unable to reach us at the number above, please feel free to contact [facility] at [phone]. [id number] us Generic External Data Provider IMG CT PROCEDURES Final Result documented in this encounter Visit Diagnoses Not on filedocumented in this encounter Care Teams Customer Contact Representative Relationship Specialty Start Date End Date Padilla Amaya MD [address] [facility] [address] [place] [address] PCP - Almita CARSON 11/30/21 11/29/23 Padilla Amaya MD [address] [facility] [address] [place] [address] PCP - General Internal Medicine 05/26/23 Marian Lewis, HYPERTRICHOLOGIST-DAMPENER [address] [facility] [address] [place] [address] PCP - Almita CARSON 11/30/23 Marian Lewis, HYPERTRICHOLOGIST-DAMPENER [address] [facility] [address] [place] [address] Nurse Practitioner Behavioral Health 05/26/23 documented as of this encounter
--- OUTSIDE RECORDS SUMMARY | 2025-09-02 16:14 | XMS_ITS | Encounter Summary ---
Author Organization [facility] Address [address] [place] [address] Care Team Providers Care Construction Trades Teacher Name Role Phone Padilla Amaya MD Unavailable [phone] Padilla Amaya MD Primary Care Provider [phone] Marian Lewis ROTARY LITHOGRAPHIC PRESS OPERATOR-SOFTWARE QA SYSTEM SPECIALIST Unavailable Marian Lewis ROTARY LITHOGRAPHIC PRESS OPERATOR-SOFTWARE QA SYSTEM SPECIALIST Unavailable Encounter Details Date Type Department Care Team (Late st Contact Info) Description 10/06/2023 Abstract [facility] [place] [facility] [place] 112 [facility] 110 [place] [address] Padilla Amaya MD 112 [facility] 110 [place] [address] Social History Tobacco Use Types [...] How often do you attend chur or jew services? Never 06/26/2023 Do you belong to any clubs o r organizations such as nondenominational groups, unions, fraternal or athletic groups, or [...] Recorded Patient Health Questionnaire-2 Score 0 06/16/2023 [facility] - Occupational Stress Questionnaire Answer Date [...] place to sleep or slept in a assisted (including now)? No 06/26/2023 Sex and Gender [...] [facility] [address] [place] [phone] Rosario Nash MD [address] [facility] [address] [place] [address] 09/26/2025 8:30 AM EDT Office Visit [facility] [place] [facility] [address] [facility] [address] [place] [phone] Karen Cruz NP [address] [facility] [address] [place] [address] 10/04/2025 1:30 PM EST Office Visit [facility] [place] [facility] [address] [place] [address] [place] [address] Marian Lewis, ROTARY LITHOGRAPHIC PRESS OPERATOR-SOFTWARE QA SYSTEM SPECIALIST [address] [facility] [address] [place] [address] documented as of this encounter Visit Diagnoses Not on filedocumented in this encounter Care Teams Construction Trades Teacher Relationship Specialty Start Date End Date Padilla Amaya MD [address] [facility] [address] [place] [address] PCP - Almita CARSON 11/30/21 11/29/23 Padilla Amaya MD [address] [facility] [address] [place] [address] PCP - General Internal Medicine 05/26/23 Marian Lewis, ROTARY LITHOGRAPHIC PRESS OPERATOR-SOFTWARE QA SYSTEM SPECIALIST [address] [facility] [address] [place] [address] PCP - Almita CARSON 11/30/23 Marian Lewis, ROTARY LITHOGRAPHIC PRESS OPERATOR-SOFTWARE QA SYSTEM SPECIALIST [address] [facility] [address] [place] [address] Nurse Practitioner Behavioral Health 05/26/23 documented as of this encounter
--- OUTSIDE RECORDS SUMMARY | 2025-09-02 16:14 | XMS_ITS | Encounter Summary ---
Author Organization [facility] Address [address] [place] [address] Care Team Providers Care Club Director Name Role Phone Padilla Amaya MD Primary Care Provider Marian Lewis DEPUTY K 9-HEALTH CARE ASSISTANT Unavailable Marian Lewis DEPUTY K 9-HEALTH CARE ASSISTANT Unavailable Encounter Details Date Type Department Care Team (Late st Contact Info) Description 02/08/2025 Abstract [facility] [place] [facility] 112 [facility] 110 [place] [phone] Padilla Amaya MD 112 [facility] 110 [place], [place] [address] Social History Tobacco Use Types Packs/Day Years [...] any clubs o r organizations such as restorationist groups, unions, fraternal or athletic groups, or [...] Date Recorded Patient Health Questionnaire-2 Score 0 12/26/2024 [facility] Occupat ional Health - Occupational [...] [place] [facility] [address] [facility] [address] [place] [phone] Rosario Nash MD [address] [facility] [address] [place] [address] 09/26/2025 8:30 AM EDT Office Visit [facility] [place] [facility] [address] [facility] [address] [place] [phone] Karen Cruz NP [address] [place] [address] [place] [address] 10/04/2025 1:30 PM EST Office Visit [facility] [place] [facility] [address] [place] [address] [place] [phone] Marian Lewis, DEPUTY K 9-HEALTH CARE ASSISTANT [address] [facility] [address] [place] [address] documented as of this encounter Visit Diagnoses Not on filedocumented in this encounter Care Teams Club Director Relationship Specialty Start Date End Date Padilla Amaya MD [address] [facility] [address] [place] [address] PCP - General Internal Medicine 05/26/23 Marian Lewis, DEPUTY K 9-HEALTH CARE ASSISTANT [address] [facility] [address] [place] [address] PCP - Almita CARSON 11/30/23 Marian Lewis, DEPUTY K 9-HEALTH CARE ASSISTANT [address] [facility] [address] [place] [address] Nurse Practitioner Behavioral Health 05/26/23 documented as of this encounter
--- OUTSIDE RECORDS SUMMARY | 2025-09-02 16:14 | XMS_ITS | Encounter Summary ---
Author Organization [facility] Address [address] [place] [address] Care Team Providers Care Potato Chip Frier Name Role Phone Padilla Amaya MD Unavailable [phone] Padilla Amaya MD Primary Care Provider [phone] Marian Lewis STRANNER-CONTRACTING EXECUTIVE Unavailable Marian Lewis STRANNER-CONTRACTING EXECUTIVE Unavailable Encounter Details Date Type Department Care Team (Late st Contact Info) Description 09/02/2023 [facility] [address] [facility] [address] [place] [address] A, Unknown Practice [address] [place] [address] Social History Tobacco Use Types [...] How often do you attend chur or catholic services? Never 06/26/2023 Do you belong to any clubs o r organizations such as yazidism groups, unions, fraternal or athletic groups, or [...] Recorded Patient Health Questionnaire-2 Score 0 06/16/2023 [facility] of Occupat ional Health - Occupational [...] Visit [facility] [place] [facility] [address] [facility] [address] [place] [address] Rosario Nash MD [address] [place] [address] [place] [address] 09/26/2025 8:30 AM EDT Office Visit [facility] [place] [facility] [address] [facility] [address] [place] [phone] Karen Cruz NP [address] [facility] [address] [place] [address] 10/04/2025 1:30 PM EST Office Visit [facility] [place] [facility] [address] [place] [address] [place] [address] Marian Lewis, STRANNER-CONTRACTING EXECUTIVE [address] [facility] [address] [place] [address] documented as of this encounter Procedures Procedure Name Priority Date/Time Associated Diagnosis Comments SCANNED LABS Routine 09/02/2023 2:00 PM EDT documented in this encounter Results * SCANNED LABS (09/02/2023 2:00 PM EDT) us Unknown Practice A LAB CHG PERFORMABLES Final Re sult documented in this encounter Visit Diagnoses Not on filedocumented in this encounter Care Teams Potato Chip Frier Relationship Specialty Start Date End Date Padilla Amaya MD [address] [facility] [address] [place] [address] PCP - Almita CARSON 11/30/21 11/29/23 Padilla Amaya MD [address] [facility] [address] [place] [address] PCP - General Internal Medicine 05/26/23 Marian Lewis, STRANNER-CONTRACTING EXECUTIVE [address] [facility] [address] [place] [address] PCP - Almita CARSON 11/30/23 Marian Lewis, STRANNER-CONTRACTING EXECUTIVE [address] [facility] [address] [place] [address] Nurse Practitioner Behavioral Health 05/26/23 documented as of this encounter
--- OUTSIDE RECORDS SUMMARY | 2025-09-02 16:14 | XMS_ITS | Encounter Summary ---
Author Organization [facility] Address [address] [place] [address] Care Team Providers Care Griddle Attendant Name Role Phone Padilla Amaya MD Primary Care Provider Marian Lewis SOCIAL WORKER ASSISTANT-LEAD MINER Unavailable Marian Lewis SOCIAL WORKER ASSISTANT-LEAD MINER Unavailable Encounter Details Date Type Department Care Team (Late st Contact Info) Description 08/25/2025 Telephone [facility] [place] [facility] [address] [place] [address] [place] [address] Rosario Nash MD 112 [facility] 130 [place] [address] Social History Tobacco Use Types [...] any clubs o r organizations such as zoroastrianism groups, unions, fraternal or athletic groups, or [...] Recorded Patient Health Questionnaire-2 Score 0 07/03/2025 [facility] of Occupat ional Health - Occupational [...] place to sleep or slept in a longterm (including now)? No 06/26/2023 Sex and Gender Information Value Date Recorded Sex Assigned at Not on file Legal Sex Male 6:44 PM EDT Gender Identity Not on file Sexual Orientation Not on file documented as of this encounter Miscellaneous Notes * Telephone Encounter - Serene Nash - 08/25/2025 11:07 AM EDT Pt's niece called in to schedule/pt is scheduled 08/29/[address] Nash. * Telephone Encounter - Serene Nash - 08/25/2025 11:02 AM EDT Nona called from PCP asking if pt has been scheduled/I told her no, but that we had left a message this am for pt to call office to schedule. I tried again this am, left a second message. * Telephone Encounter - Serene Nash - 08/25/2025 9:04 AM EDT Left message for pt to call office to schedule appt. * Telephone Encounter - Rosario Nash MD - 08/25/2025 7:55 AM EDT Schedule appt. No audio. Dx - dysphagia documented in this encounter Plan of Treatment Upcoming Encounters Date Type Department Care Team (Late st Contact Info) Description 09/20/2025 2:00 PM EDT Office Visit [facility] [place] [facility] [address] [place] [address] [place] [address] Rosario Nash MD [address] [place] [address] [place] [address] 09/26/2025 8:30 AM EDT Office Visit [facility] [place] [facility] [address] [place] [address] [place] [address] Karen Cruz, ENVIRONMENTAL AIR SPECIALIST [address] [place] [address] [place] [address] 10/04/2025 1:30 PM EST Office Visit [facility] [place] [facility] [address] [place] [address] [place] [address] Marian Lewis, SOCIAL WORKER ASSISTANT-LEAD MINER [address] [place] [address] [place] [address] documented as of this encounter Visit Diagnoses Not on filedocumented in this encounter Additional Health Concerns Assessment Noted Time PHQ-9 Depression Total Score: 0 07/03/20 25 1:30 PM EDT documented as of this encounter Care Teams Griddle Attendant Relationship Specialty Start Date End Date Padilla Amaya MD [address] [place] [address] [place] [address] PCP - General Internal Medicine 05/26/23 Marian Lewis, ANGELIQUE-LEAD MINER 112 [facility] 160 [place] [address] PCP - Almita CARSON 11/30/23 Marian Lewis, ANGELIQUE-LEAD MINER [address] [address] Nurse Practitioner Behavioral Health 05/26/23 documented as of this encounter
--- OUTSIDE RECORDS SUMMARY | 2025-09-02 16:14 | XMS_ITS | Encounter Summary ---
Author Organization [facility] Address [address] [place] [address] Care Team Providers Care Toy Assembler Name Role Phone Padilla Amaya MD Unavailable [phone] Padilla Amaya MD Primary Care Provider [phone] Marian Lewis BRIDGE IRONWORKER HELPER-ROTARY DERRICK OPERATOR Unavailable Marian Lewis BRIDGE IRONWORKER HELPER-ROTARY DERRICK OPERATOR Unavailable Encounter Details Date Type Department [...] often do you attend chur ch or judaism services? Never 06/26/2023 Do you belong to any clubs o r organizations such as sabianist groups, unions, fraternal or athletic groups, or [...] Recorded Patient Health Questionnaire-2 Score 0 06/16/2023 [facility] Occupat ional [facility] - Occupational Stress Questionnaire Answer Date [...] Visit [facility] [place] [facility] [address] [facility] [address] [place] [address] Rosario Nash MD [address] [facility] [address] [place] [address] 09/26/2025 8:30 AM EDT Office Visit [facility] [place] [facility] [address] [facility] [address] [place] [address] Karen Cruz CLINICAL PSYCHOLOGY TEACHER [address] [facility] [address] [place] [address] 10/04/2025 1:30 PM EST Office Visit [facility] [place] [facility] [address] [facility] [address] [place] [address] Marian Lewis, BRIDGE IRONWORKER HELPER-ROTARY DERRICK OPERATOR [address] [facility] [address] [place] [address] documented as of this encounter Procedures Procedure Name Priority Date/Time Associated Diagnosis Comments CT ABD/PEL W IVCON 10/14/2023 9: 23 AM EST documented in this encounter Results * CT ABD/PEL W IVCON (10/14/2023 9:23 AM EST) Anatomical Region Laterality Modality Other 10/14/2023 9:23 AM EST Narrative 10/15/2023 11:59 AM EST * * *Final Report* * * DATE OF EXAM: Oct 14 2023 9:23AM [facility] 0530 - CT ABD/PEL W IVCON / PROCEDURE REASON: multiple diagnoses * * * * Physician Interpretation * * * * RESULT: EXAMINATION: CT ABDOMEN AND PELVIS WITH IV CONTRAST CLINICAL HISTORY: Esophageal carcinoma. TECHNIQUE: CT of the abdomen and pelvis was performed using standard technique, scanning from just above the dome of the diaphragm to the symphysis pubis. MQ: CTAP_3 Contrast: IV: 150 ml of Omnipaque 300 Oral: 500 ml of Omni 240 10-25ml diluted with water CT Radiation dose: Integrated Dose-length product (DLP) for this visit = 1048 mGy*cm. CT Dose Reduction Employed: Automated exposure control (AEC) COMPARISON: 06/11/2023 RESULT: Liver: 2.8 cm posterior right lobe hepatic hemangioma, stable. 7 mm left lobe hepatic cyst, unchanged. No new hepatic lesion. Biliary Tract: No bile duct dilation. The gallbladder appears unremarkable. Spleen: No splenomegaly. No mass. Soft tissue density adjacent to the splenic hilum is stable, compatible with accessory splenule. Pancreas: No mass or ductal dilatation. Adrenal glands: No mass. Mild nodular thickening bilaterally, stable. Kidneys: The right kidney appears unremarkable. No enhancing mass or hydronephrosis. Small hypodensities, stable. The left kidney is not identified. Small ovoid-shaped soft tissue density within the medial left renal fossa is again noted, unchanged. GI Tract: No bowel wall thickening or dilation. Lymph nodes: No substantial abdominal or pelvic lymphadenopathy. Mesentery/Peritoneum: No ascites or mass. Retroperitoneum: No mass. Vasculature: - Abdominal aorta and iliac arteries: Atherosclerotic calcifications without aneurysm. - Celiac and SMA: Patent. - Portal venous system (SMV, splenic vein, portal vein and branches): Patent. - Hepatic veins: Patent. Pelvis: No free fluid or pelvic mass. Diffuse urinary bladder wall thickening, stable. No substantial inguinal adenopathy. Surgical clips within the right inguinal region, unchanged. Bones/Soft Tissues: Postoperative changes proximal left femur is again appreciated, incompletely imaged. Post traumatic deformity of the right ischial tuberosity is again noted. Lower Thorax: A CT examination of the chest has been performed concurrently and will be dictated separately. Parker (topogram) images: No additional findings. IMPRESSION: 1. Overall stable appearance to the abdomen and pelvis. 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 2. Diffuse thickening of the urinary bladder, unchanged. 3. No substantial intra-abdominal or pelvic lymphadenopathy. Transcribe Date/Time: Oct 15 2023 9:42A Dictated by: MUNIR CORTEZ MD This examination was interpreted and the report reviewed and electronically signed by: MUNIR CORTEZ MD on Oct 15 2023 11:57AM EST Thank you for allowing us to participate in the care of your patient. Should there be any questions regarding this interpretation, please call [phone]. If you are unable to reach us at the number above, please feel free to contact [facility] at [phone]. [id number] Procedure Note Radiology, Radiologist, - 10/15/2023 * * *Final Report* * * DATE OF EXAM: Oct 14 2023 9:23AM [facility] 0530 - CT ABD/PEL W IVCON / PROCEDURE REASON: multiple diagnoses * * * * Physician Interpretation * * * * RESULT: EXAMINATION: CT ABDOMEN AND PELVIS WITH IV CONTRAST CLINICAL HISTORY: Esophageal carcinoma. TECHNIQUE: CT of the abdomen and pelvis was performed using standard technique, scanning from just above the dome of the diaphragm to the symphysis pubis. MQ: CTAP_3 Contrast: IV: 150 ml of Omnipaque 300 Oral: 500 ml of Omni 240 10-25ml diluted with water CT Radiation dose: Integrated Dose-length product (DLP) for this visit = 1048 mGy*cm. CT Dose Reduction Employed: Automated exposure control (AEC) COMPARISON: 06/11/2023 RESULT: Liver: 2.8 cm posterior right lobe hepatic hemangioma, stable. 7 mm left lobe hepatic cyst, unchanged. No new hepatic lesion. Biliary Tract: No bile duct dilation. The gallbladder appears unremarkable. Spleen: No splenomegaly. No mass. Soft tissue density adjacent to the splenic hilum is stable, compatible with accessory splenule. Pancreas: No mass or ductal dilatation. Adrenal glands: No mass. Mild nodular thickening bilaterally, stable. Kidneys: The right kidney appears unremarkable. No enhancing mass or hydronephrosis. Small hypodensities, stable. The left kidney is not identified. Small ovoid-shaped soft tissue density within the medial left renal fossa is again noted, unchanged. GI Tract: No bowel wall thickening or dilation. Lymph nodes: No substantial abdominal or pelvic lymphadenopathy. Mesentery/Peritoneum: No ascites or mass. Retroperitoneum: No mass. Vasculature: - Abdominal aorta and iliac arteries: Atherosclerotic calcifications without aneurysm. - Celiac and SMA: Patent. - Portal venous system (SMV, splenic vein, portal vein and branches): Patent. - Hepatic veins: Patent. Pelvis: No free fluid or pelvic mass. Diffuse urinary bladder wall thickening, stable. No substantial inguinal adenopathy. Surgical clips within the right inguinal region, unchanged. Bones/Soft Tissues: Postoperative changes proximal left femur is again appreciated, incompletely imaged. Post traumatic deformity of the right ischial tuberosity is again noted. Lower Thorax: A CT examination of the chest has been performed concurrently and will be dictated separately. Parker (topogram) images: No additional findings. IMPRESSION: 1. Overall stable appearance to the abdomen and pelvis. 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 2. Diffuse thickening of the urinary bladder, unchanged. 3. No substantial intra-abdominal or pelvic lymphadenopathy. Transcribe Date/Time: Oct 15 2023 9:42A Dictated by: MUNIR CORTEZ MD This examination was interpreted and the report reviewed and electronically signed by: MUNIR CORTEZ MD on Oct 15 2023 11:57AM EST Thank you for allowing us to participate in the care of your patient. Should there be any questions regarding this interpretation, please call [phone]. If you are unable to reach us at the number above, please feel free to contact [facility] at [phone]. [id number] us Generic External Data Provider [facility] Final Result documented in this encounter Visit Diagnoses Not on filedocumented in this encounter Care Teams Toy Assembler Relationship Specialty Start Date End Date Padilla Amaya MD [address] [facility] [address] [place] [address] PCP - Almita CARSON 11/30/21 11/29/23 Padilla Amaya MD [address] [facility] [address] [place] [address] PCP - General Internal Medicine 05/26/23 Marian Lewis, BRIDGE IRONWORKER HELPER-ROTARY DERRICK OPERATOR [address] [facility] [address] [place] [address] PCP - Almita CARSON 11/30/23 Marian Lewis, BRIDGE IRONWORKER HELPER-ROTARY DERRICK OPERATOR [address] [facility] [address] [place] [address] Nurse Practitioner Behavioral Health 05/26/23 documented as of this encounter
--- OUTSIDE RECORDS SUMMARY | 2025-09-02 16:14 | XMS_ITS | Encounter Summary ---
Author Organization [facility] Address [address] [place] [address] Care Team Providers Care Freight Traffic Consultant Name Role Phone Padilla Amaya MD Primary Care Provider [phone] Marian Lewis WORKERS COMPENSATION ANALYST-MATRIX WORKER Unavailable Marian Lewis WORKERS COMPENSATION ANALYST-MATRIX WORKER Unavailable Encounter Details Date Type Department Care Team (Late st Contact Info) Description 08/29/2025 Telephone [facility] [address] [facility] [address] [place] [address] Rosario Nash MD 112 [facility] [address] [place] [address] Social History Tobacco Use Types [...] any clubs o r organizations such as hinduism groups, unions, fraternal or athletic groups, or [...] Recorded Patient Health Questionnaire-2 Score 0 07/03/2025 [facility] Occupat ional Health - [...] * Telephone Encounter - Serene Nash - 08/29/2025 2:15 PM EDT Sade said Sacha is having his test on 09/13/25...pt is now scheduled with Dr Nash 09/20/25. * Telephone Encounter - Serene Nash - 08/29/2025 1:33 PM EDT Called pt/he has not had the test done yet/he is still waiting to hear about scheduling it. Notified Karen Cruz of this/she said OK/Left message with Sade, pt's niece to call once test is scheduled. * Telephone Encounter - Rosario Nash MD - 08/29/2025 12:57 PM EDT Reviewing pt's records prior to his appt, it looks like a modified barium swallow has been ordered at [facility]. Has this been done or scheduled. We should wait for him to see me until after this study has been completed and we have the results documented in this encounter Plan of Treatment Upcoming Encounters Date Type Department Care Team (Late st Contact Info) Description 09/20/2025 2:00 PM EDT Office Visit [facility] [place] [facility] [address] [place] [address] [place] [address] Rosario Nash MD [address] [place] [address] [place] [address] 09/26/2025 8:30 AM EDT Office Visit [facility] [place] [facility] [address] [place] [address] [place] [address] Karen Cruz, PRODUCT MARKETING CONSULTANT [address] [place] [address] [place] [address] 10/04/2025 1:30 PM EST Office Visit [facility] [place] [facility] [address] [place] [address] [place] [address] Marian Lewis, WORKERS COMPENSATION ANALYST-MATRIX WORKER [address] [place] [address] [place] [address] documented as of this encounter Visit Diagnoses Not on filedocumented in this encounter Additional Health Concerns Assessment Noted Time PHQ-9 Depression Total Score: 0 07/03/20 25 1:30 PM EDT documented as of this encounter Care Teams Freight Traffic Consultant Relationship Specialty Start Date End Date Padilla Amaya MD [address] [place] [address] [place] [address] PCP - General Internal Medicine 05/26/23 Marian Lewis, WORKERS COMPENSATION ANALYST-MATRIX WORKER [address] [address] PCP - Almita CARSON 11/30/23 Marian Lewis, ANGELIQUE-MATRIX WORKER [address] [address] Nurse Practitioner Behavioral Health 05/26/23 documented as of this encounter
--- OUTSIDE RECORDS SUMMARY | 2025-09-02 16:14 | XMS_ITS | Encounter Summary ---
Author Organization [facility] Address [address] [place] [address] Care Team Providers Care Cotton Stripper Name Role Phone Padilla Amaya MD Unavailable [phone] Padilla Amaya MD Primary Care Provider [phone] Marian Lewis ELEVATOR REPAIRER-SYSTEMS SOFTWARE ENGINEER Unavailable Marian Lewis ELEVATOR REPAIRER-SYSTEMS SOFTWARE ENGINEER Unavailable Encounter Details Date Type Department Care Team (Late st Contact Info) Description 06/25/2023 Abstract [facility] [place] [facility] 112 [facility] 110 [place] [address] Padilla Amaya MD [address] [facility] 110 [place] [address] Social History Tobacco Use Types [...] How often do you attend chur or alevism services? Never 06/26/2023 Do you belong to any clubs o r organizations such as christianity groups, unions, fraternal or athletic groups, or [...] Patient Health Questionnaire-2 Score 0 06/16/2023 [facility] of Occupat ionid Health - Occupational Stress Questionnaire Answer Date [...] place to sleep or slept in a residential (including now)? No 06/26/2023 Sex and Gender [...] WAY [facility] [address] [place] [address] Rosario Nash MD [address] [place] [address] [place] [address] 09/26/2025 8:30 AM EDT Office Visit [facility] [place] [facility] [address] [place] [address] [place] [address] Karen Cruz, MACHINIST GENERAL [address] [place] [address] [place] [address] 10/04/2025 1:30 PM EST Office Visit [facility] [place] [facility] [address] [place] [address] [place] [address] Marian Lewis, ELEVATOR REPAIRER-SYSTEMS SOFTWARE ENGINEER [address] [place] [address] [place] [address] documented as of this encounter Visit Diagnoses Not on filedocumented in this encounter Care Teams Cotton Stripper Relationship Specialty Start Date End Date Padilla Amaya MD [address] [place] [address] [place] [address] PCP - Almita CARSON 11/30/21 11/29/23 Padilla Amaya MD [address] [place] [address] [place] [address] PCP - General Internal Medicine 05/26/23 Marian Lewis, ELEVATOR REPAIRER-SYSTEMS SOFTWARE ENGINEER [address] [place] [address] [place] [address] PCP - Almita CARSON 11/30/23 Marian Lewis, ELEVATOR REPAIRER-SYSTEMS SOFTWARE ENGINEER [address] [place] [address] [place] [address] Nurse Practitioner Behavioral Health 05/26/23 documented as of this encounter
--- OUTSIDE RECORDS SUMMARY | 2025-09-02 16:15 | XMS_ITS | Encounter Summary ---
Author Organization [facility] Address [address] [place] [address] Care Team Providers Care Excavator Operator Name Role Phone Padilla Amaya MD Primary Care Provider [phone] Marian Lewis ANODE BUILDER-RETAIL FIELD SUPERVISOR Unavailable Marian Lewis ANODE BUILDER-RETAIL FIELD SUPERVISOR Unavailable Encounter Details Date Type Department Care Team (Late st Contact Info) Description 09/15/2024 Abstract [facility] [place] [facility] [address] [facility] 110 [place] [address] Padilla Amaya MD 112 [facility] 110 [place], [place] [address] Social History Tobacco Use Types Packs/Day Years [...] How often do you attend chur or holiness services? Never 06/26/2023 Do you belong to [...] Recorded Patient Health Questionnaire-2 Score 0 06/16/2023 [facility] of Occupat ional Health - Occupational [...] Visit [facility] [place] [facility] [address] [facility] [address] [place] [address] Rosario Nash MD [address] [facility] [address] [place] [address] 09/26/2025 8:30 AM EDT Office Visit [facility] [place] [facility] [address] [facility] [address] [place] [phone] Karen Cruz NP [address] [place] [address] [place] [address] 10/04/2025 1:30 PM EST Office Visit [facility] [place] [facility] [address] [place] [address] [place] [phone] Marian Lewis, ANODE BUILDER-RETAIL FIELD SUPERVISOR [address] [facility] [address] [place] [address] documented as of this encounter Visit Diagnoses Not on filedocumented in this encounter Care Teams Excavator Operator Relationship Specialty Start Date End Date Padilla Amaya MD [address] [facility] [address] [place] [address] PCP - General Internal Medicine 05/26/23 Marian Lewis, ANODE BUILDER-RETAIL FIELD SUPERVISOR [address] [facility] [address] [place] [address] PCP - Almita CARSON 11/30/23 Marian Lewis, ANODE BUILDER-RETAIL FIELD SUPERVISOR [address] [facility] [address] [place] [address] Nurse Practitioner Behavioral Health 05/26/23 documented as of this encounter
--- OUTSIDE RECORDS SUMMARY | 2025-09-02 16:15 | XMS_ITS | Encounter Summary ---
Author Organization [facility] Address [address] [place] [address] Care Team Providers Care Gullet Slitter Name Role Phone Padilla Amaya MD Primary Care Provider [phone] Marian Lewis PRIVATE EQUITY ANALYST-EMBALMER/FUNERAL DIRECTOR Unavailable Marian Lewis PRIVATE EQUITY ANALYST-EMBALMER/FUNERAL DIRECTOR Unavailable Encounter Details Date Type Department [...] How often do you attend chur or jehovah's witness services? Never 06/26/2023 Do you belong to [...] Recorded Patient Health Questionnaire-2 Score 0 09/21/2024 [facility] - Occupational Stress Questionnaire Answer Date Recorded [...] [address] [facility] [address] [place] [id number] Rosario Nash MD [address] [facility] [address] [place] [address] 09/26/2025 8:30 AM EDT Office Visit [facility] [address] [facility] [address] [place] [address] Karen Cruz NP [address] [place] [address] [place] [address] 10/04/2025 1:30 PM EST Office Visit [facility] [place] [facility] [address] [place] [address] [place] [id number] Marian Lewis, PRIVATE EQUITY ANALYST-EMBALMER/FUNERAL DIRECTOR [address] [facility] [address] [place] [address] documented as of this encounter Procedures Procedure Name Priority Date/Time Associated Diagnosis Comments CT ABD/PEL W IVCON 09/29/2024 2: 53 PM EDT documented in this encounter Results * CT ABD/PEL W IVCON (09/29/2024 2:53 PM EDT) Anatomical Region Laterality Modality Other 09/29/2024 2:53 PM EDT Narrative 09/30/2024 2:30 PM EDT * * *Final Report* * * DATE OF EXAM: Sep 29 2024 2:53PM [facility] 0530 - CT ABD/PEL W IVCON / PROCEDURE REASON: multiple diagnoses * * * * Physician Interpretation * * * * RESULT: EXAMINATION: CT ABDOMEN AND PELVIS WITH IV CONTRAST CLINICAL HISTORY: Malignant neoplasm of the esophagus. TECHNIQUE: CT of the abdomen and pelvis was performed using standard technique, scanning from just above the dome of the diaphragm to the symphysis pubis. MQ: CTAP_3 Contrast: IV: 100 ml of Omnipaque 350 Oral: 500 ml of Omni 240 10-25ml diluted with water CT Radiation dose: Integrated Dose-length product (DLP) for this visit = 1005 mGy*cm. CT Dose Reduction Employed: Automated exposure control(AEC) and iterative recon COMPARISON: CT abdomen/pelvis 10/14/2023; 06/11/2023; 02/26/2022 and 12/21/2020. PET/CTs 05/19/2022 RESULT: Liver: Normal liver morphology. A hemangioma within hepatic segment 7 measures 2.1 cm. Subcentimeter hypodensities within the left hepatic lobe are unchanged, too small to characterize, and are likely cysts. No suspicious hepatic mass. Biliary: No bile duct dilation. Gallbladder is unremarkable. Spleen: No mass. No splenomegaly. Pancreas: There is mild diffuse fatty atrophy of the pancreatic body. No pancreatic mass or pancreatic ductal dilatation. Adrenals: No mass. Unchanged mild bilateral adrenal thickening. Kidneys: Unchanged diffuse atrophy of the left kidney. Normal enhancement of the right kidney. A cyst arising from the posterior interpolar right kidney measures 1.6 cm. No collecting system dilatation. GI tract: The bowel is normal in caliber and without evidence of wall thickening or obstruction. Lymph nodes: No abdominal or pelvic lymphadenopathy. Mesentery/Peritoneum: No ascites or mass. Retroperitoneum: No mass. Vasculature: - Abdominal aorta and iliac arteries: Atherosclerotic calcifications without aneurysm. - Celiac and SMA: Atherosclerotic calcifications at the origins. - Portal venous system (SMV, splenic vein, portal vein and branches): Patent. - Hepatic veins: Patent. Pelvis: No mass, ascites or fluid collection. Stool-filled moderately distended rectum. The prostate and urinary bladder are unremarkable. Bones/Soft Tissues: Instrumented fixation of the proximal left femur is again noted. Degenerative changes involve the hips and lumbar spine. No destructive lytic or blastic osseous abnormality. Lower thorax: A chest CT performed will be reported separately. Localizer images: No additional findings. IMPRESSION: 1. Stable exam since 10/14/2023. No metastatic disease within the abdomen/pelvis. 2. Please refer to concurrently acquired and separately reported chest CT for findings related to the thorax. Transcribe Date/Time: Sep 30 2024 1:57P Dictated by: NOHELIA HERRERA MD This examination was interpreted and the report reviewed and electronically signed by: NOHELIA HERRERA MD on Sep 30 2024 2:28PM EST Thank you for allowing us to participate in the care of your patient. Should there be any questions regarding this interpretation, please call [phone]. If you are unable to reach us at the number above, please feel free to contact [facility] at [phone]. [id number] Procedure Note Radiology, Radiologist, - 09/30/2024 * * *Final Report* * * DATE OF EXAM: Sep 29 2024 2:53PM [facility] 0530 - CT ABD/PEL W IVCON / PROCEDURE REASON: multiple diagnoses * * * * Physician Interpretation * * * * RESULT: EXAMINATION: CT ABDOMEN AND PELVIS WITH IV CONTRAST CLINICAL HISTORY: Malignant neoplasm of the esophagus. TECHNIQUE: CT of the abdomen and pelvis was performed using standard technique, scanning from just above the dome of the diaphragm to the symphysis pubis. MQ: CTAP_3 Contrast: IV: 100 ml of Omnipaque 350 Oral: 500 ml of Omni 240 10-25ml diluted with water CT Radiation dose: Integrated Dose-length product (DLP) for this visit = 1005 mGy*cm. CT Dose Reduction Employed: Automated exposure control(AEC) and iterative recon COMPARISON: CT abdomen/pelvis 10/14/2023; 06/11/2023; 02/26/2022 and 12/21/2020. PET/CTs 05/19/2022 RESULT: Liver: Normal liver morphology. A hemangioma within hepatic segment 7 measures 2.1 cm. Subcentimeter hypodensities within the left hepatic lobe are unchanged, too small to characterize, and are likely cysts. No suspicious hepatic mass. Biliary: No bile duct dilation. Gallbladder is unremarkable. Spleen: No mass. No splenomegaly. Pancreas: There is mild diffuse fatty atrophy of the pancreatic body. No pancreatic mass or pancreatic ductal dilatation. Adrenals: No mass. Unchanged mild bilateral adrenal thickening. Kidneys: Unchanged diffuse atrophy of the left kidney. Normal enhancement of the right kidney. A cyst arising from the posterior interpolar right kidney measures 1.6 cm. No collecting systemdilatation. GI tract: The bowel is normal in caliber and without evidence of wall thickening or obstruction. Lymph nodes: No abdominal or pelvic lymphadenopathy. Mesentery/Peritoneum: No ascites or mass. Retroperitoneum: No mass. Vasculature: - Abdominal aorta and iliac arteries: Atherosclerotic calcifications without aneurysm. - Celiac and SMA: Atherosclerotic calcifications at the origins. - Portal venous system (SMV, splenic vein, portal vein and branches): Patent. - Hepatic veins: Patent. Pelvis: No mass, ascites or fluid collection. Stool-filled moderately distended rectum. The prostate and urinary bladder are unremarkable. Bones/Soft Tissues: Instrumented fixation of the proximal left femur is again noted. Degenerative changes involve the hips and lumbar spine. No destructive lytic or blastic osseous abnormality. Lower thorax: A chest CT performed will be reported separately. Localizer images: No additional findings. IMPRESSION: 1. Stable exam since 10/14/2023. No metastatic disease within the abdomen/pelvis. 2. Please refer to concurrently acquired and separately reported chest CT for findings related to the thorax. Transcribe Date/Time: Sep 30 2024 1:57P Dictated by: NOHELIA HERRERA MD This examination was interpreted and the report reviewed and electronically signed by: NOHELIA HERRERA MD on Sep 30 2024 2:28PM EST Thank you for allowing us to participate in the care of your patient. Should there be any questions regarding this interpretation, please call [phone]. If you are unable to reach us at the number above, please feel free to contact [facility] at [phone]. [id number]^[email or web address] us Generic External Data Provider [facility] Final Result documented in this encounter Visit Diagnoses Not on filedocumented in this encounter Care Teams Gullet Slitter Relationship Specialty Start Date End Date Padilla Amaya MD [address] [facility] [address] [place] [address] PCP - General Internal Medicine 05/26/23 Marian Lewis, PRIVATE EQUITY ANALYST-EMBALMER/FUNERAL DIRECTOR [address] [facility] [address] [place] [address] PCP - Almita CARSON 11/30/23 Marian Lewis, PRIVATE EQUITY ANALYST-EMBALMER/FUNERAL DIRECTOR [address] [facility] [address] [place] [address] Nurse Practitioner Behavioral Health 05/26/23 documented as of this encounter
[2025-09-02 16:45] LABS: Hematocrit 34.6 % (42.0-54.0); Hemoglobin 11.8 g/dL (14.0-18.0); Immature Granulocytes Abs Auto 0.06 10^3/uL (0.00-0.03); Immature Granulocytes Pct Auto 1.0 % (0.0-0.5); Lymphocytes Absolute Auto 1.2 10^3/uL (1.2-3.8); Mean Corpuscular HGB Conc 34.1 g/dL (29.9-35.2); Mean Corpuscular Hemoglobin 32.8 pg (25.9-34.0); Mean Corpuscular Volume 96.1 fL (80.0-94.0); Platelet Count 237 10^3/uL (150-450); Red Blood Count 3.60 10^6/uL (4.70-6.10); White Blood Count 6.1 10^3/uL (4.0-11.0)
--- NOTE | 2025-09-02 16:47 | ED.SOB1 ---
HPI - SOB/Dyspnea General Chief Complaint: Shortness of Breath/Dyspnea Stated Complaint: OFF BALANCE, MUCUS DISCHARGE, HIGH BP Time Seen by Provider: 09/02/25 16:05 Source: patient Mode of arrival: Wheelchair Limitations: no limitations History of Present Illness HPI Narrative: Patient is a 75-year-old male coming to us with his caregiver for concern of dizziness and imbalance with gait, the patient have a history of esophageal cancer that was treated but they are supposed to do another workup for dysphagia as well and the barium swallow at the end of this month, the patient have some difficulty swallowing food and chokes sometimes The caregivers were noted that the patient has been coughing up phlegm that is yellow for the last 24 hours There was no recorded shortness of breath The patient is hard of hearing and denies any complaint Related Data Home Medications ?Medication ?Instructions ?Recorded ?Confirmed AlerClear 10 mg PO DAILY 09/02/25 09/02/25 Lactobacillus acidophilus 10 100 mmu cells PO DAILY 09/02/25 09/02/25 billion cell capsule (Probiotic) albuterol sulfate 90 mcg/actuation 1 inh inhalation Q4H 09/02/25 09/02/25 aerosol inhaler calcium 600 mg capsule 600 mg PO BID 09/02/25 09/02/25 cholecalciferol (vitamin D3) 125 125 mcg PO BID 09/02/25 09/02/25 mcg (5,000 unit) capsule cholestyramine (with sugar) 4 gram 1 ea PO BID 09/02/25 09/02/25 powder for susp in a packet dicyclomine 10 mg capsule 10 mg PO TID 09/02/25 09/02/25 diphenoxylate-atropine 2.5 1 tab PO Q6H PRN diarrhea 09/02/25 09/02/25 mg-0.025 mg tablet divalproex 125 mg tablet,delayed 125 mg PO Q8H 09/02/25 09/02/25 release esomeprazole magnesium 40 mg 40 mg PO DAILY 09/02/25 09/02/25 capsule,delayed release ferrous sulfate 325 mg (65 mg 325 mg PO DAILY 09/02/25 09/02/25 iron) tablet (Feosol) furosemide 40 mg tablet 40 mg PO DAILY 09/02/25 09/02/25 hydroxyzine HCl 10 mg tablet 10 mg PO BID 09/02/25 09/02/25 ibuprofen 800 mg tablet (IBU) 800 mg PO BID 09/02/25 09/02/25 ipratropium bromide 0.02 % 2.5 ml inhalation Q8H 09/02/25 09/02/25 solution for inhalation lamotrigine 200 mg tablet 200 mg PO DAILY 09/02/25 09/02/25 metformin 500 mg tablet 500 mg PO BID 09/02/25 09/02/25 multivitamin 1 tab PO DAILY 09/02/25 09/02/25 rifaximin 550 mg tablet (Xifaxan) 550 mg PO BID PRN IBS 09/02/25 09/02/25 risperidone 1 mg tablet 1 mg PO DAILY 09/02/25 09/02/25 risperidone 2 mg tablet 2 mg PO BEDTIME 09/02/25 09/02/25 rosuvastatin 10 mg tablet 10 mg PO DAILY 09/02/25 09/02/25 sertraline 100 mg tablet 100 mg PO BID 09/02/25 09/02/25 tamsulosin 0.4 mg capsule 0.4 mg PO Q24H 09/02/25 09/02/25 valbenazine 80 mg capsule 80 mg PO DAILY 09/02/25 09/02/25 (Ingrezza) Allergies Allergy/AdvReac Type Severity Reaction Status Date / Time No Known Drug Allergies Allergy Verified 09/02/25 16:07 Review of Systems ROS Status of ROS 10 or more systems reviewed and unremarkable except as noted in history and below PFSH PFSH Social History Little interest or pleasure in doing things: not at all Feeling down, depressed, or hopeless: not at all Exam Narrative Exam Narrative: Nurses notes and vital signs reviewed and patient is not hypoxic. General: Well-appearing and in no apparent distress. Skin: Warm, dry, no pallor noted. No rash. Head: Normocephalic, atraumatic. Neck: Supple, non-tender. Eye: Pupils are equal, round and EOMI. No scleral icterus. Ears, Nose, Mouth, and Throat: The patient dentures keep moving inside his mouth well talking no signs of difficulty breathing or compromise of the airway Respiratory: Decreased air entry in the bases the patient is not in any distress and not using any accessory muscles Musculoskeletal: normal ROM, no calf or popliteal tenderness, no lower extremity edema/swelling GI: Abdomen is soft, non-distended. Normal bowel sounds. No masses appreciated. No tenderness to palpation. No rebound, guarding, or rigidity noted. Neurological: A&O x4. No cranial nerve dysfunction observed. Constitutional Vital Signs, click to edit/add: Last Vital Signs Temp 98.5 F 09/02/25 16:07 Pulse 70 09/02/25 17:10 Resp 23 H 09/02/25 16:30 BP 165/81 H 09/02/25 16:35 Pulse Ox 94 L 09/02/25 17:11 O2 Del Method Nasal Cannula 09/02/25 17:11 O2 Flow Rate 1 09/02/25 17:11 Course Vital Signs Vital signs: Vital Signs Temperature 98.5 F 09/02/25 16:07 Pulse Rate 77 09/02/25 16:07 Respiratory Rate 16 09/02/25 16:07 Blood Pressure 157/88 H 09/02/25 16:07 Pulse Oximetry 84 L 09/02/25 16:07 Oxygen Delivery Method Room Air 09/02/25 16:07 Temperature 98.5 F 09/02/25 16:07 Pulse Rate 70 09/02/25 17:10 Respiratory Rate 23 H 09/02/25 16:30 Blood Pressure 165/81 H 09/02/25 16:35 Pulse Oximetry 94 L 09/02/25 17:11 Oxygen Delivery Method Nasal Cannula 09/02/25 17:11 Oxygen Delivery Flow Rate 1 09/02/25 17:11 MDM - SOB/Dyspnea MDM Narrative Medical decision making narrative: Patient EKG showing sinus rhythm with a heart rate of [address] elevation or depression The patient was noted to be hypoxemic on arrival he was 84% in room air and he does not have any history of using oxygen at home History of diabetes and does use inhaler there is a possibility that he have a history of COPD as well No distress on evaluation although the patient was hypoxemic on room air and that his dizziness is mostly secondary to that The patient chest x-ray shows a picture of congestive heart failure BN pep is not elevated CBC and chemistry showed no acute significant pathology with no elevated troponin The patient ABGs shows compensated elevated CO2 with a normal pH but the pO2 is low on the 2 L nasal cannula The patient was up to 3 the nasal cannula The patient CT of the head showed no acute pathology underwent CT of the chest with contrast that shows possible bronchiectasis on the right lung Will cover for possible COPD exacerbation with Solu-Medrol and azithromycin and his case was discussed with , and he agreed with above-mentioned plan The patient will be admitted for hypoxemia and possible need for home oxygen Lab Data Labs: Lab Results 09/02/25 09/02/25 Range/Units 16:32 17:15 WBC 6.1 (4.0-11.0) 10^3/uL RBC 3.60 L (4.70-6.10) 10^6/uL Hgb 11.8 L (14.0-18.0) g/dL Hct 34.6 L (42.0-54.0) % MCV 96.1 H (80.0-94.0) fL MCH 32.8 (25.9-34.0) pg MCHC 34.1 (29.9-35.2) g/dL RDW 14.3 (11.0-15.0) % Plt Count 237 (150-450) 10^3/uL MPV 9.0 L (9.5-13.5) fL Neut % (Auto) 68.9 (43.0-75.0) % Lymph % (Auto) 19.1 L (20.5-60.0) % [place] % (Auto) 8.5 (1.7-12.0) % Eos % (Auto) 2.0 (0.9-7.0) % Baso % (Auto) 0.5 (0.2-2.0) % Neut # (Auto) 4.2 (1.4-6.5) 10^3/uL Lymph # (Auto) 1.2 (1.2-3.8) 10^3/uL [place] # (Auto) 0.5 (0.3-0.8) 10^3/uL Eos # (Auto) 0.1 (0.0-0.7) 10^3/uL Baso # (Auto) 0.0 (0.0-0.1) 10^3/uL Abs Immat Gran (auto) 0.06 H (0.00-0.03) 10^3/uL Imm/Tot Granulo (auto) 1.0 H (0.0-0.5) % D-Dimer 0.22 (<=0.59) mg/L FEU Puncture Site Rr ABG pH 7.441 (7.350-7.450) ABG pCO2 47.4 H (35.0-45.0) mmHg ABG pO2 65.8 L (80.0-100.0) mmHg ABG HCO3 32.3 H (22.0-26.0) mmol/L ABG O2 Saturation 94.8 % ABG Base Excess 8.1 H (-2.0-2.0) mmol/L Beau Test Positive (POSITIVE) O2 Liters/Min 1 FiO2 95 % Sodium 131 L (136-145) mmol/L Potassium 4.6 (3.5-5.1) mmol/L Chloride 94 L (98-107) mmol/L Carbon Dioxide 31.8 (21.0-32.0) mmol/L Anion Gap 9.8 BUN 19.0 H (7.0-18.0) mg/dL Creatinine 0.92 (0.70-1.30) mg/dL Est GFR ( Amer) >60 (>=60 mL/min/1.73m^2) Est GFR (Non-Af Amer) >60 (>=60 mL/min/1.73m^2) BUN/Creatinine Ratio 20.7 Glucose 144 H (74-106) mg/dL Calcium 9.0 (8.5-10.1) mg/dL Total Bilirubin 0.3 (0.2-1.0) mg/dL AST 12 L (15-37) U/L ALT 12 L (16-63) U/L Alkaline Phosphatase 76 (46-116) U/L Troponin I High Sens 35.2 (4.0-76.1) pg/mL NT-Pro-B Natriuret Pep 247.0 (<=900.0) pg/mL Total Protein 6.8 (6.4-8.2) g/dL Albumin 3.0 L (3.4-5.0) g/dL Globulin 3.8 g/dL Albumin/Globulin Ratio 0.8 Discharge Plan Discharge Chief Complaint: Shortness of Breath/Dyspnea Clinical Impression: Hypoxemia, COPD exacerbation Patient Disposition: Admitted As Inpatient Time of Disposition Decision: 18:27
[2025-09-02 17:00] LABS: Alanine Aminotransferase 12 U/L (16-63); Albumin Globulin Ratio 0.8; Albumin Level 3.0 g/dL (3.4-5.0); Alkaline Phosphatase 76 U/L (46-116); Anion Gap 9.8; Aspartate Amino Transferase 12 U/L (15-37); Blood Urea Nitrogen 19.0 mg/dL (7.0-18.0); Calcium 9.0 mg/dL (8.5-10.1); Carbon Dioxide 31.8 mmol/L (21.0-32.0); Chloride 94 mmol/L (98-107); Estimated GFR (African America >60 (>=60 mL/min/1.73m^2); Estimated GFR (Non-African Ame >60 (>=60 mL/min/1.73m^2); Globulin 3.8 g/dL; Glucose 144 mg/dL (74-106); Potassium 4.6 mmol/L (3.5-5.1); Sodium 131 mmol/L (136-145); Total Protein 6.8 g/dL (6.4-8.2)
[2025-09-02 17:03] LABS: NT Pro B Type Natriuretic Pept 247.0 pg/mL (<=900.0)
[2025-09-02] MEDS: IPRATROPIUM/ALBUTEROL SULFATE 3 ML AMPUL.NEB IH (17:09)
[2025-09-02 17:18] LABS: ABG PCO2 47.4 mmHg (35.0-45.0)
[2025-09-02 17:19] LABS: Allen Test POSITIVE (POSITIVE); HCO3 ABG 32.3 mmol/L (22.0-26.0); Liters per Minute 1; O2 Mode NC; Oxygen Saturation ABG 94.8 %; PO2 ABG 65.8 mmHg (80.0-100.0); Puncture Site RR
--- NOTE | 2025-09-02 17:19 | CT_ITS ---
The [address] [address] Patient Name: KEN SWEET MRN: [id number] date: 1950 Sex: M Assigned Patient Location: ER Current Patient Location: ER Accession/Order Number: [id number] Exam Date: 09/02/2025 17:45 Report Date: 09/02/2025 18:07 At the request of: MACKENZIE BRYANT MD Procedure: CT chest w con CT CHEST WITH INTRAVENOUS CONTRAST: CLINICAL HISTORY: hypoxemia COMPARISON: Chest performed earlier today TECHNIQUE: Spiral images were obtained through the chest following intravenous administration of IV contrast. This CT exam was performed using one or more following dose reduction techniques: Automated exposure control, adjustment of the mA and/or kV according to patient size, or use of iterative reconstruction technique. FINDINGS: Mediastinum:Right lobe thyroid nodules largest measuring 1.3 cm. Pulmonary trunk appears nondilated. Thoracic aorta appears normal in caliber. No pleural effusion. No lymphadenopathy. The esophagus is grossly unremarkable. Right-sided port is in place. Lungs:Bibasilar atelectasis/scarring. There is associated bronchiectasis involving the lower lobe as well as the right upper lobe. No consolidation pneumothorax or pleural effusion. Abd:Indeterminate lesion involving the right lobe of the liver measuring 2.4 cm. This is partially visualized on today's study. Soft tissues/Bones: No acute findings. Osseous structures demonstrate degenerative change. CT/CT chest w con IMPRESSION: No acute findings. Bibasilar atelectasis/scarring with bronchiectasis involving the lower lobes as well as the right upper lobe. Indeterminate lesion involving the right lobe the liver measuring 2.4 cm. Right lobe thyroid nodules largest measuring 1.3 cm. Impression dictated by: Nathan Coleman Jr., D.O. 09/02/2025 6:07 PM Dictation Location: [facility] Electronically authenticated by: [id number] Y Date: 09/02/2025 18:07
--- NOTE | 2025-09-02 17:19 | CT_ITS ---
The [address] [address] Patient Name: KEN SWEET MRN: [id number] date: 1950 Sex: M Assigned Patient Location: ER Current Patient Location: ER Accession/Order Number: [id number] Exam Date: 09/02/2025 17:45 Report Date: 09/02/2025 18:04 At the request of: MACKENZIE BRYANT MD Procedure: CT head/brain wo con CT BRAIN WITHOUT CONTRAST: CLINICAL HISTORY: gait and balance abnormal COMPARISON: CT brain 01/23/2020 TECHNIQUE: Contiguous axial unenhanced images were obtained through the brain. This CT exam was performed using one or more following dose reduction techniques: Automated exposure control, adjustment of the mA and/or kV according to patient size, or use of iterative reconstruction technique. FINDINGS: There is no evidence of midline shift, intra or extra-axial fluid collection, hemorrhage or CT evidence of stroke. Cortical atrophy with chronic microvascular ischemic changes similar to the prior study. Posterior fossa appears unremarkable. Visualized intraorbital contents demonstrate no acute findings. Visualized paranasal sinuses are clear. The surrounding soft tissues are normal. CT/CT head/brain wo con IMPRESSION: NO ACUTE INTRACRANIAL ABNORMALITY. Impression dictated by: Nathan Coleman Jr., D.O. 09/02/2025 6:04 PM Dictation Location: [place] [address] Electronically authenticated by: [id number] Y Date: 09/02/2025 18:04
[2025-09-02] MEDS: METHYLPREDNISOLONE SOD SUCC PF 125 MG/2 ML VIAL IVP (18:41)
--- NOTE | 2025-09-02 19:08 | PM.HP ---
HPI H&P: HPI History of Present Illness Chief complaint: OFF BALANCE, MUCUS DISCHARGE, HIGH BP Narrative: This is a 75-year-old man who was brought to the [place] ER today by his caregivers because he seemed to be very off balance. His cough has been yellow and with more sputum over the last couple days. He had been short of breath and dizzy during the last 24 hours. In the emergency room when he arrived he was 84% on room air. As the workup continued they put him on supplemental oxygen but then took him off the oxygen to ambulate across the hallway to the bathroom where his oxygen saturations dropped on room air and with that exertion down to 79%. In emergency room a D-dimer was negative so pulmonary embolus was not thought to be a concern. They did get a CT scan of his lungs with IV contrast that showed bronchiectasis to cysts and atelectasis in the bilateral lower lobes and in the right upper lobe. There was also an incidental finding of a thyroid lobe nodule. In the emergency room I see the patient and he is accompanied by hired caregiver who spends 60 hours a week with him at home. She points out that the other caregiver sometimes smokes and vapes around the patient. The caregiver notes that the patient has had a bad cough since she started working with him back in December. The patient has a history of esophageal cancer. They saw the cancer doctor about that and they said that he had a number of tests done and they even stretched his esophagus a little bit but that did not seem to change his cough at all. The patient is supposed to get what sounds like a modified barium swallow at the direction of Dr. Nash at the end of the month. The patient is not known to ever need any oxygen. The caregiver describes that the patient is fairly active around the home and that when he walks he likes to walk very fast. She became very concerned today when he was very off balance and was basically running into the bess and she was worried that he would fall so that was the main reason that he was brought to the emergency room. The caregiver points out that the patient's family member who is his power of healthcare commonwealth attorney is a nurse, but is not able to be with him at this time on Thursday evening. Review of Systems ROS Narrative A 10 point review of systems is attempted, but not able to be completed as the patient is a suboptimal historian. He mostly smiles and shakes my head and only answers with 1 or 2 word responses. So most of my information comes from his home caregiver at the bedside. [facility] Medical History (Updated 09/02/25 @ 19:16 by SUMIT FLORES) Esophageal cancer ?C15.9 - Malignant neoplasm of esophagus, unspecified (ICD-10) Bipolar II disorder ?F31.81 - Bipolar II disorder (ICD-10) GERD (gastroesophageal reflux disease) ?K21.9 - Gastro-esophageal reflux disease without esophagitis (ICD-10) CAD (coronary artery disease) ?I25.10 - Atherosclerotic heart disease of [place] coronary artery without angina pectoris (ICD-10) IBS (irritable bowel syndrome) ?K58.9 - Irritable bowel syndrome, unspecified (ICD-10) COPD (chronic obstructive pulmonary disease) ?J44.9 - Chronic obstructive pulmonary disease, unspecified (ICD-10) Diabetes mellitus ?E11.9 - Type 2 diabetes mellitus without complications (ICD-10) Family History (Updated 09/02/25 @ 19:12 by SUMIT FLORES) Other Family history of hypertension Social History Little interest or pleasure in doing things: not at all Feeling down, depressed, or hopeless: not at all Meds Home Medications and Allergies Home Medications ?Medication ?Instructions ?Recorded ?Confirmed ?Type AlerClear 10 mg PO DAILY 09/02/25 09/02/25 History Lactobacillus acidophilus 10 100 mmu cells PO DAILY 09/02/25 09/02/25 History billion cell capsule (Probiotic) albuterol sulfate 90 mcg/actuation 1 inh inhalation Q4H 09/02/25 09/02/25 History aerosol inhaler calcium 600 mg capsule 600 mg PO BID 09/02/25 09/02/25 History cholecalciferol (vitamin D3) 125 125 mcg PO BID 09/02/25 09/02/25 History mcg (5,000 unit) capsule cholestyramine (with sugar) 4 gram 1 ea PO BID 09/02/25 09/02/25 History powder for susp in a packet dicyclomine 10 mg capsule 10 mg PO TID 09/02/25 09/02/25 History diphenoxylate-atropine 2.5 1 tab PO Q6H PRN diarrhea 09/02/25 09/02/25 History mg-0.025 mg tablet divalproex 125 mg tablet,delayed 125 mg PO Q8H 09/02/25 09/02/25 History release esomeprazole magnesium 40 mg 40 mg PO DAILY 09/02/25 09/02/25 History capsule,delayed release ferrous sulfate 325 mg (65 mg 325 mg PO DAILY 09/02/25 09/02/25 History iron) tablet (Feosol) furosemide 40 mg tablet 40 mg PO DAILY 09/02/25 09/02/25 History hydroxyzine HCl 10 mg tablet 10 mg PO BID 09/02/25 09/02/25 History ibuprofen 800 mg tablet (IBU) 800 mg PO BID 09/02/25 09/02/25 History ipratropium bromide 0.02 % 2.5 ml inhalation Q8H 09/02/25 09/02/25 History solution for inhalation lamotrigine 200 mg tablet 200 mg PO DAILY 09/02/25 09/02/25 History metformin 500 mg tablet 500 mg PO BID 09/02/25 09/02/25 History multivitamin 1 tab PO DAILY 09/02/25 09/02/25 History rifaximin 550 mg tablet (Xifaxan) 550 mg PO BID PRN IBS 09/02/25 09/02/25 History risperidone 1 mg tablet 1 mg PO DAILY 09/02/25 09/02/25 History risperidone 2 mg tablet 2 mg PO BEDTIME 09/02/25 09/02/25 History rosuvastatin 10 mg tablet 10 mg PO DAILY 09/02/25 09/02/25 History sertraline 100 mg tablet 100 mg PO BID 09/02/25 09/02/25 History tamsulosin 0.4 mg capsule 0.4 mg PO Q24H 09/02/25 09/02/25 History valbenazine 80 mg capsule 80 mg PO DAILY 09/02/25 09/02/25 History (Ingrezza) Allergies Allergy/AdvReac Type Severity Reaction Status Date / Time No Known Drug Allergies Allergy Verified 09/02/25 16:07 Exam Narrative Exam Narrative: General: Seen in ER room #2 he reaches out to shake my hand and occasionally pushes his lower dentures out that he looks like he is not someone who is overly toxic or overly sick but on 2 L oxamide nasal cannula he is 97% but when I turn it off for 2 minutes to examine him and sit him upright to auscultate his lungs he drops down to 88% on room air so he certainly does need supplemental oxygen. Skin: Warm and dry and well-perfused. Mouth: Fully edentulous. In the back of his throat it looks like he had a uvulectomy many years ago. I do not see any thrush. Mallampati grade 4. Mucosal membranes are moist. Tongue is in the midline. Eyes: Conjunctiva sclera are clear bilaterally. His right eye seems to be chronically deviated to the right from what looks like a very old injury. Ears: External ears are normal. Neck: No lymphadenopathy is palpated. Pulmonary: To auscultate his lungs he has harsh very mucoid breath sounds throughout. He does have a cough but cannot fully expectorate sputum. There is a hint of mild wheezing throughout the lung field superimposed on this. So his breath sounds are very consistent with chronic bronchiectasis and I suspect a component of long-term aspiration. Cardiac: Heart sounds are distant but I do not hear any murmurs or rubs or gallops to auscultation. GI: Abdomen is soft, nontender palpation, normal bowel sounds to auscultation. Lower extremities: He does have +2 pitting edema from his knees down to his ankles bilaterally. Psychiatric: He seems to be very pleasant. He smiles. He is very polite. Constitutional Vital Signs, click to edit/add: Last Vital Signs Temp 98.5 F 09/02/25 16:07 Pulse 77 09/02/25 18:50 Resp 20 09/02/25 18:50 BP 159/96 H 09/02/25 18:30 Pulse Ox 94 L 09/02/25 18:50 O2 Del Method Nasal Cannula 09/02/25 17:11 O2 Flow Rate 1 09/02/25 17:11 Results Labs Labs: Short CBC 09/02/25 Range/Units 16:32 WBC 6.1 (4.0-11.0) 10^3/uL Hgb 11.8 L (14.0-18.0) g/dL Hct 34.6 L (42.0-54.0) % Plt Count 237 (150-450) 10^3/uL BMP 09/02/25 16:32 Sodium 131 L Potassium 4.6 Chloride 94 L Carbon Dioxide 31.8 BUN 19.0 H Creatinine 0.92 Glucose 144 H Calcium 9.0 Liver Function 09/02/25 Range/Units 16:32 Total Bilirubin 0.3 (0.2-1.0) mg/dL AST 12 L (15-37) U/L ALT 12 L (16-63) U/L Alkaline Phosphatase 76 (46-116) U/L Albumin 3.0 L (3.4-5.0) g/dL ABG ABG results: 09/02/25 17:15 ABG pH 7.441 ABG pCO2 47.4 H ABG pO2 65.8 L ABG HCO3 32.3 H ABG O2 Saturation 94.8 ABG Base Excess 8.1 H Assessment and Plan Assessment and Plan (1) Hypoxemia: (2) Bronchiectasis with (acute) exacerbation: (3) Dysphagia: (4) Acute bacterial bronchitis: (5) Diabetes mellitus with hyperglycemia: Plan Assessment: Acute hypoxemia. My clinical impression is that this patient likely has had bronchiectasis for a while and likely has been chronically having at least microaspiration for a while and that this has developed an acute exacerbation of his bronchiectasis. It is possible that he has acute bacterial bronchitis and simply does not mount the elevated white blood count because of the long-term mucous in his bronchiectasis. Long-term medical problems: Diabetes mellitus type 2. Prostate hypertrophy. IBS with diarrhea. Coronary artery disease. GERD. Bipolar 2. Recent issues with esophageal cancer, reportedly following up with his cancer doctor with no ongoing problems. Plan: Hospital admission with inpatient status. His hypoxia is not likely to resolve and 12 to 24 hours so inpatient status is chosen at this time. I agree with the Zithromax that the ER has given him. Blood cultures x 2 have been ordered by the ER and I did order a sputum culture, both of these should be obtained as soon as possible. The ER has also treated him with 125 mg of IV Solu-Medrol. To rule out acute systolic dysfunction I have ordered an echocardiogram. Daily weights should be checked by the nursing staff. I will intensify his diuresis by switching him to Lasix 40 mg IV starting tomorrow morning. DVT prophylaxis with Lovenox 40 mg subcutaneously daily. Telemetry monitoring. Consult to physical therapy. Consult Occupational Therapy. Consult to speech therapy, ideally the patient could have a modified barium swallow within the next few days. I will use albuterol nebulizer treatment scheduled 4 times a day, and hold off on the ipratropium at this time to give him a break from the anticholinergic effects. Nursing staff should try and titrate down his supplemental oxygen as tolerated. Will except oxygen saturations between 89 and 92%. The most important thing for this patient at this time is pulmonary hygiene, with coughing and deep breathing exercises every 2 hours, ideally an Acapella/PEP valve, and I will use guaifenesin to help work as a mucolytic and he should sit upright at 90 degrees for all meals and remain sitting upright for at least an hour after each meal. May add additional antibiotics to the Zithromax depending on how his clinical course progresses. Will monitor his elevated blood pressure. If this improves with IV diuresis that would be satisfactory and also suggest that he is mildly fluid overloaded. If his blood pressure remains elevated then additional medications can be made.
[2025-09-02] MEDS: AZITHROMYCIN 500 MG in 0.9 % SODIUM CHLORIDE 250 ML 250 MG IV (19:22)
[2025-09-02] MEDS: ALBUTEROL SULFATE 2.5 MG/3 ML VIAL NEB IH (21:00)
[2025-09-02] MEDS: DIVALPROEX SODIUM 125 MG TABLET.DR PO (23:04)
[2025-09-02] MEDS: HYDROXYZINE HCL 10 MG TABLET PO (23:04)
[2025-09-02] MEDS: SERTRALINE HCL 100 MG TABLET PO (23:04)
[2025-09-02] MEDS: IBUPROFEN 400 MG TABLET 800 MG PO (23:04)
[2025-09-02] MEDS: DICYCLOMINE HCL 10 MG CAPSULE PO (23:04)
[2025-09-03] VITALS (19 sets, daily range): BP systolic 122–166; BP diastolic 71–91; PULSE 64–98; TEMP 36.4–37; O2SAT 89–95
[2025-09-03] MEDS: ALBUTEROL SULFATE 2.5 MG/3 ML VIAL NEB IH ×4 (05:10→20:59)
[2025-09-03] MEDS: DICYCLOMINE HCL 10 MG CAPSULE PO ×3 (06:20→21:21)
[2025-09-03] MEDS: DIVALPROEX SODIUM 125 MG TABLET.DR PO ×3 (06:20→21:21)
[2025-09-03] MEDS: PANTOPRAZOLE SODIUM 40 MG TABLET.DR PO (06:20)
[2025-09-03 06:52] LABS: Hematocrit 35.8 % (42.0-54.0); Hemoglobin 12.2 g/dL (14.0-18.0); Immature Granulocytes Abs Auto 0.03 10^3/uL (0.00-0.03); Immature Granulocytes Pct Auto 0.5 % (0.0-0.5); Lymphocytes Absolute Auto 0.8 10^3/uL (1.2-3.8); Mean Corpuscular HGB Conc 34.1 g/dL (29.9-35.2); Mean Corpuscular Hemoglobin 32.3 pg (25.9-34.0); Mean Corpuscular Volume 94.7 fL (80.0-94.0); Platelet Count 226 10^3/uL (150-450); Red Blood Count 3.78 10^6/uL (4.70-6.10); White Blood Count 5.6 10^3/uL (4.0-11.0)
[2025-09-03 06:58] LABS: INR 1.08; Partial Thromboplastin Time 30.9 sec (22.3-36.2); Prothrombin Time 11.4 sec (9.0-11.6)
[2025-09-03 07:07] LABS: Anion Gap 9.2; Blood Urea Nitrogen 18.0 mg/dL (7.0-18.0); Calcium 9.0 mg/dL (8.5-10.1); Carbon Dioxide 31.6 mmol/L (21.0-32.0); Chloride 93 mmol/L (98-107); Estimated GFR (African America >60 (>=60 mL/min/1.73m^2); Estimated GFR (Non-African Ame >60 (>=60 mL/min/1.73m^2); Glucose 141 mg/dL (74-106); Magnesium 1.7 mg/dL (1.8-2.4); NT Pro B Type Natriuretic Pept 573.0 pg/mL (<=900.0); Potassium 4.8 mmol/L (3.5-5.1); Sodium 129 mmol/L (136-145)
[2025-09-03] MEDS: ATORVASTATIN CALCIUM 40 MG TABLET PO (08:35)
[2025-09-03] MEDS: SPIRONOLACTONE 25 MG TABLET PO (08:35)
[2025-09-03] MEDS: TAMSULOSIN HCL 0.4 MG CAPSULE PO (08:35)
[2025-09-03] MEDS: AZITHROMYCIN 250 MG TABLET PO (08:35)
[2025-09-03] MEDS: L. ACIDOPHILUS/L.BULGARICUS 1 PACKET GRAN.PACK PO ×3 (08:35→16:50)
[2025-09-03] MEDS: LAMOTRIGINE 100 MG TABLET 200 MG PO (08:35)
[2025-09-03] MEDS: MULTIVITAMIN TABLET 1 TAB PO (08:35)
[2025-09-03] MEDS: CHOLESTYRAMINE PO (08:36)
[2025-09-03] MEDS: SERTRALINE HCL 100 MG TABLET PO ×2 (08:36→21:21)
[2025-09-03] MEDS: FUROSEMIDE 40 MG/4 ML VIAL IVP ×2 (08:36→13:11)
[2025-09-03] MEDS: ENOXAPARIN SODIUM 40 MG/0.4 ML SYRINGE SUBQ (08:36)
[2025-09-03] MEDS: [UNRECOGNIZED DRUG - OTHER] PO (08:36)
[2025-09-03] MEDS: HYDROXYZINE HCL 10 MG TABLET PO ×2 (08:36→21:21)
[2025-09-03] MEDS: IBUPROFEN 400 MG TABLET 800 MG PO ×2 (08:36→21:21)
--- NOTE | 2025-09-03 15:15 | P.PN_ITS ---
Progress Note: Subjective Subjective Interval history: When I saw the patient on rounds at lunchtime he was accompanied by his daughter/POA. She said that she thinks the patient was looking much better today. Less confused than he was at home. Less physically weak that he was at home before coming in. She thinks that his cough and breathing is getting a little bit better. He does remain on supplemental oxygen. The daughter works as a nurse and she does in-home care for 16-hour shifts, and she was about to start that shift at 1:00 in the afternoon today so she will be able to visit the patient tomorrow but her sister, who also does in-home care will be visiting later this afternoon and tomorrow. I discussed with the daughter at the bedside about bronchiectasis and Thera vest which ideally the patient could get at home. Of the daughter points out that he has coverage from the [facility] for disability so that might help him get all the equipment and home DME such as a therapist. I encouraged coughing and deep breathing and all the pulmonary hygiene which they had been doing at home. The daughter/POA did discuss CODE STATUS and she is having wishes consistent with DNR CCA with no intubation status so I filled that paperwork out. Later on the afternoon rounds I met with the other daughter. She says that they have already tried a whole lot of different things for dysphagia like different types of foods and different consistencies and everything from Jell-O to pur?ed foods causes him to cough. She says we just want to get him good enough to take care of him at home. I think she admits that even if speech therapy did find severe problems with dysphagia and recommended an intense situation such as pur?ed foods and thickened liquids that while the family members would agree with this and try it they also agree that they are probably just going to give him the kinds of foods and liquids that he likes to eat and keep it comfortable. The patient himself subjectively does not have any particular complaints. He lets his family members to all of the talking. He does not complain of a cough but then when I auscultate his lungs I can hear that he needs to cough and with some encouragement he is able to clear his throat and expectorate some sputum. Exam Narrative Exam Narrative: Skin: Warm and dry and well-perfused. Mouth: Fully edentulous. In the back of his throat it looks like he had a uvulectomy many years ago. I do not see any thrush. Mallampati grade 4. Mucosal membranes are moist. Tongue is in the midline. Pulmonary: Today his harsh and thick mucus and bronchial breath sounds are about 50% better. There is a hint of mild wheezing throughout the lung field superimposed on this, with moderate tightness throughout the chest. So his breath sounds are very consistent with chronic bronchiectasis and I suspect a component of long-term aspiration. Cardiac: Heart sounds are distant but I do not hear any murmurs or rubs or gallops to auscultation. GI: Abdomen is soft, nontender palpation, normal bowel sounds to auscultation. Lower extremities: He does have now mild 1+ pitting edema to both lower extremities, which is about 60% improved from the way it looked yesterday in the emergency room. Psychiatric: He seems to be very pleasant. He smiles. He is very polite. Constitutional Vital Signs, click to edit/add: Last Vital Signs Temp 97.7 F 09/03/25 07:54 Pulse 83 09/03/25 12:00 Resp 20 09/03/25 11:31 BP 150/80 H 09/03/25 11:31 Pulse Ox 92 L 09/03/25 11:31 O2 Del Method Nasal Cannula 09/03/25 11:31 O2 Flow Rate 3 09/03/25 11:31 Progress Note: Objective Labs Labs: Short CBC 09/02/25 09/03/25 Range/Units 16:32 06:20 WBC 6.1 5.6 (4.0-11.0) 10^3/uL Hgb 11.8 L 12.2 L (14.0-18.0) g/dL Hct 34.6 L 35.8 L (42.0-54.0) % Plt Count 237 226 (150-450) 10^3/uL BMP 09/02/25 09/03/25 16:32 06:20 Sodium 131 L 129 L Potassium 4.6 4.8 Chloride 94 L 93 L Carbon Dioxide 31.8 31.6 BUN 19.0 H 18.0 Creatinine 0.92 0.87 Glucose 144 H 141 H Calcium 9.0 9.0 Liver Function 09/02/25 Range/Units 16:32 Total Bilirubin 0.3 (0.2-1.0) mg/dL AST 12 L (15-37) U/L ALT 12 L (16-63) U/L Alkaline Phosphatase 76 (46-116) U/L Albumin 3.0 L (3.4-5.0) g/dL Progress Note: A&P Assessment and Plan (1) Hypoxemia: (2) Bronchiectasis with (acute) exacerbation: (3) Dysphagia: (4) Acute bacterial bronchitis: (5) Diabetes mellitus with hyperglycemia: (6) Developmental delay with variable neurologic and brain abnormalities: Plan Acute hypoxemia. My clinical impression is that this patient has had bronchiectasis for a while and likely has been chronically having at least microaspiration for a long time... and that this has developed an acute exacerbation of his bronchiectasis. It is possible that he has acute bacterial bronchitis and simply does not mount the elevated white blood count because of the long-term mucous in his bronchiectasis. Long-term medical problems: Diabetes mellitus type 2. Prostate hypertrophy. IBS with diarrhea. Coronary artery disease. GERD. Bipolar 2. Developmental delay. Recent issues with esophageal cancer, reportedly following up with his cancer doctor with no ongoing problems. Plan: I agree with the Zithromax that the ER has given him. Continue with Zithromax 250 mg p.o. daily. Today start Rocephin 1 g IV every 24 hours and monitor for clinical response. Prednisone 40 mg daily and my colleague can titrate this if he has hypoxia improves and variation improves. Blood cultures x 2 have been ordered by the ER and I did order a sputum culture. To rule out acute systolic dysfunction I have ordered an echocardiogram. Daily weights should be checked by the nursing staff. He got a few doses of IV Lasix at first and I will switch him back to his oral Lasix to start tomorrow. DVT prophylaxis with Lovenox 40 mg subcutaneously daily. Telemetry monitoring. Consult to physical therapy. Consult Occupational Therapy. Consult to speech therapy, ideally the patient could have a modified barium swallow within the next few days. I will use albuterol nebulizer treatment scheduled 4 times a day, and hold off on the ipratropium at this time to give him a break from the anticholinergic effects. Nursing staff should try and titrate down his supplemental oxygen as tolerated. Will except oxygen saturations between 89 and 92%. The most important thing for this patient at this time is pulmonary hygiene, with coughing and deep breathing exercises every 2 hours, ideally an Acapella/PEP valve, and I will use guaifenesin to help work as a mucolytic and he should sit upright at 90 degrees for all meals and remain sitting upright for at least an hour after each meal. Will monitor his elevated blood pressure. His daughter reported that in the past when he was started on blood pressure medications he had syncopal events so we can allow him to have higher blood pressures here to avoid the risk of syncope and falls. DNR-CCA (No intubation status) as discussed with daughter/POA. On Thursday, with a day team is here and case management is available consideration should be given to trying to obtain a Thera-Vest for the patient to use at home to treat his bronchiectasis.
[2025-09-03] MEDS: PREDNISONE 20 MG TABLET 40 MG PO (15:37)
[2025-09-03] MEDS: CALCIUM CARBONATE 600 MG TABLET PO (21:21)
[2025-09-03] MEDS: DOCUSATE SODIUM 100 MG CAPSULE PO (21:21)
[2025-09-03] MEDS: CHOLECALCIFEROL (VITAMIN D3) 125 MCG/5,000 UNIT TABLET PO (21:21)
[2025-09-04] VITALS (10 sets, daily range): BP systolic 156–180; BP diastolic 89–98; PULSE 67–98; TEMP 36.7–36.8; O2SAT 83–96
[2025-09-04] MEDS: ALBUTEROL SULFATE 2.5 MG/3 ML VIAL NEB IH ×3 (05:05→15:57)
[2025-09-04] MEDS: DICYCLOMINE HCL 10 MG CAPSULE PO ×2 (05:15→13:50)
[2025-09-04] MEDS: DIVALPROEX SODIUM 125 MG TABLET.DR PO ×2 (05:15→13:50)
[2025-09-04] MEDS: PANTOPRAZOLE SODIUM 40 MG TABLET.DR PO (05:40)
[2025-09-04 06:22] LABS: Hematocrit 36.0 % (42.0-54.0); Hemoglobin 12.4 g/dL (14.0-18.0); Immature Granulocytes Abs Auto 0.03 10^3/uL (0.00-0.03); Immature Granulocytes Pct Auto 0.5 % (0.0-0.5); Lymphocytes Absolute Auto 0.9 10^3/uL (1.2-3.8); Mean Corpuscular HGB Conc 34.4 g/dL (29.9-35.2); Mean Corpuscular Hemoglobin 32.4 pg (25.9-34.0); Mean Corpuscular Volume 94.0 fL (80.0-94.0); Platelet Count 230 10^3/uL (150-450); Red Blood Count 3.83 10^6/uL (4.70-6.10); White Blood Count 6.1 10^3/uL (4.0-11.0)
[2025-09-04 06:32] LABS: Anion Gap 11.2; Blood Urea Nitrogen 21.0 mg/dL (7.0-18.0); Calcium 9.3 mg/dL (8.5-10.1); Carbon Dioxide 30.5 mmol/L (21.0-32.0); Chloride 91 mmol/L (98-107); Estimated GFR (African America >60 (>=60 mL/min/1.73m^2); Estimated GFR (Non-African Ame >60 (>=60 mL/min/1.73m^2); Glucose 160 mg/dL (74-106); Potassium 4.7 mmol/L (3.5-5.1); Sodium 128 mmol/L (136-145)
--- NOTE | 2025-09-04 08:20 | CM.NOTE ---
Rounds made with Dr. Vitale, updated pt on plan of care. Internet Salesperson at bedside and updated on condition. Pt will have PT/OT/Speech for discharge planning. No discharge today.
[2025-09-04] MEDS: ENOXAPARIN SODIUM 40 MG/0.4 ML SYRINGE SUBQ (08:48)
[2025-09-04] MEDS: HYDROXYZINE HCL 10 MG TABLET PO (08:48)
[2025-09-04] MEDS: L. ACIDOPHILUS/L.BULGARICUS 1 PACKET GRAN.PACK PO ×2 (08:48→12:34)
[2025-09-04] MEDS: IBUPROFEN 400 MG TABLET 800 MG PO (08:49)
[2025-09-04] MEDS: TAMSULOSIN HCL 0.4 MG CAPSULE PO (08:49)
[2025-09-04] MEDS: CALCIUM CARBONATE 600 MG TABLET PO (08:49)
[2025-09-04] MEDS: PREDNISONE 20 MG TABLET 40 MG PO (08:50)
[2025-09-04] MEDS: ATORVASTATIN CALCIUM 40 MG TABLET PO (08:50)
[2025-09-04] MEDS: MULTIVITAMIN TABLET 1 TAB PO (08:50)
[2025-09-04] MEDS: AZITHROMYCIN 250 MG TABLET PO (08:51)
[2025-09-04] MEDS: LAMOTRIGINE 100 MG TABLET 200 MG PO (08:51)
[2025-09-04] MEDS: FUROSEMIDE 40 MG TABLET PO (08:51)
[2025-09-04] MEDS: SPIRONOLACTONE 25 MG TABLET PO (08:51)
[2025-09-04] MEDS: CHOLECALCIFEROL (VITAMIN D3) 125 MCG/5,000 UNIT TABLET PO (08:51)
[2025-09-04] MEDS: DOCUSATE SODIUM 100 MG CAPSULE PO (08:51)
[2025-09-04] MEDS: SERTRALINE HCL 100 MG TABLET PO (08:51)
[2025-09-04] MEDS: [UNRECOGNIZED DRUG - OTHER] PO (08:59)
[2025-09-04] MEDS: CHOLESTYRAMINE PO (08:59)
--- NOTE | 2025-09-04 11:00 | CM.NOTE ---
KAILASH and Haylee Bah in to speak with pt's niece per request. Pt's niece voices concern regarding discharge planning. Niece states she was informed by Dr. Devi that pt could discharge today with home oxygen and antibiotics. Discussed with niece that antibiotics could not be delivered today. Niece requesting to speak with Dr. Vitale to discuss further plan of care. Niece also asking to take pt home today, discussed AMA paperwork but pt would not discharge with IV antibiotics or home oxygen. Niece at this time does not wish to sign pt out AMA. Updated Dr. Vitale, he will speak with pt and family.
--- NOTE | 2025-09-04 11:25 | PC.NURSE ---
tech at bedside for echo poa refused test stating no more testing
--- NOTE | 2025-09-04 11:50 | CM.NOTE ---
KAILASH and Dr. Vitale in to speak with pt, caregiver and niece regarding plan of care. Nibairon MAYORGA voices she is changing pt's code status to DNRCC. Niece voices understanding of aspiration pneumonia and need for home oxygen. Niece verbalizes she feels as pt will continue aspirating and does not wish any further testing. Niece is not opposed to oral antibiotics at discharge and walk test prior to discharge. Niece wishes no further testing and wishes are for comfort and discharge to home. Walk test entered and RN updated. Fede voices that she would like [facility] if pt qualifies for home oxygen. KAILASH spoke with pt and niece regarding Hospice consult, nibairon prefers to reach out at later time. Dr. Vitale will enter discharge orders.
--- NOTE | 2025-09-04 11:54 | W.ACP ---
Advance Care Planning Advance Care Planning Discussion Advance care planning discussion summary: Advance care planning and goals of care discussion. I had a meeting with his niece, MUKESH Stuart gave me permission to proceed with conversation lasted for about 60 minutes. Sade stated that she wants to take him home. DIONNE requested not to put him through any additional testing, x-ray, investigation or treatment type. We discussed his CODE STATUS. DIONNE does not want any aggressive testing. She does not want MCCA. She wants him comfort care only. DIONNE understood that by him receiving less than optimal diagnostic and therapeutic intervention, his situation may worsen over the next several days?weeks and that could lead to his demise. Sade and her sister are nurses. Patient has 24-hour care at home. Sade requested him to be discharged home. She is not willing to keep him any longer despite my recommendation otherwise. Sade stated that she will contact hospice and arrange for hospice at home. At this time I do not have legal authority to keep him in hospital against POA request to be discharged. She understood potential risk and implications including worsening condition, respiratory failure, sepsis and others. Sade understood potential risk of recurrent aspiration. EMS stated that if he aspirates, it is what it is. I will honor her request to be discharged home and officially release him.
--- NOTE | 2025-09-04 11:58 | P.DS_ITS ---
DS: Providers Provider Date of admission: 09/02/25 20:00 Primary care physician: PEREZ PADRON Consults: 09/02/25 18:56 Occupational Therapy Eval and Treat Routine Reason for consultation: off balance with walking Has provider been notified: No Physical Therapy Eval and Treat Routine Reason for consultation: off balance Has provider been notified: No Speech Therapy Eval and Treat Routine Reason for consultation: coughing when eating Has provider been notified: No DS: Diagnosis Discharge Diagnosis (1) Hypoxemia: (2) Bronchiectasis with (acute) exacerbation: (3) Dysphagia: (4) Acute bacterial bronchitis: (5) Diabetes mellitus with hyperglycemia: (6) Developmental delay with variable neurologic and brain abnormalities: Plan As listed above, below and others that are not listed DS: Summary Hospital Course Hospital Course: Mr. Mon is a 75-year-old gentleman with development and mental delay. Patient was brought to the emergency room with cough. CAT scan showed bronchiectasis, probable aspiration pneumonia. My colleague started him on intravenous antibiotic and requested swallow evaluation. Imaging showed liver lesion and also thyroid nodule, unknown etiology. These will need to be investigated further. Polypharmacy. Patient is on multiple medications that potentially could cause him to have drug?drug interaction or adverse effect. Despite my reservation on his home medications, MUKESH Stuart wants to keep him on the same medication that he has been taking for a while despite my recommendation to simplify his regimen to reduce his risk of having side effect. Patient is known to have a history of esophageal cancer for which he had recent EGD. This is my first day taking care of this gentleman. He is niece Sade who is also POA arrived. Sade requested goals of care discussion and meeting which was completed. Sade wants his CODE STATUS to be changed to comfort care. She is a nurse and understands very well the difference between aggressive care and comfort care approach. Sade requested that he would be discharged home today. She does not want him to stay in the hospital or receive any additional care. She stated that he has 24- hour supervision at home. DIONNE stated that she will sign AMA if he is not officially discharged. She does not want him to receive any swallow evaluation, any additional imaging or lab or radiological imaging. She just want him to go back home under comfort care and she is planning to seek hospice enrollment. Sade understood that by discharging him prematurely he is at risk having worsening medical issues and complications which may include but not limited to recurrent aspiration, respiratory failure, sepsis and even . Conversation witnessed by Barb Cruz RN At this time, I do not have legal authority to keep him in the hospital against her wishes. I will officially discharge him home with a 24-hour supervision and hoping that she will be able to get hospice at home. Time Spent with Patient Time attestation: Total time spent providing and/or coordinating discharge services: Exam Narrative Exam Narrative: Patient is sitting in bed. No distress. Chest exam revealed bilateral rhonchi. Heart is regular. Abdomen soft Patient has mental delay. Able to answer yes or no questions. Unable to provide information. Unable to engage in any meaningful conversation Constitutional Vital Signs, click to edit/add: Last Vital Signs Temp 98.2 F 09/04/25 08:12 Pulse 76 09/04/25 10:07 Resp 20 09/04/25 08:12 BP 157/89 H 09/04/25 08:12 Pulse Ox 95 09/04/25 10:08 O2 Del Method Nasal Cannula 09/04/25 10:08 O2 Flow Rate 2.5 09/04/25 10:08 DS: Data Data Completed and Pending Labs on day of discharge: Labs from last 24 hours 09/04/25 09/04/25 09/03/25 08:30 06:02 20:17 WBC 6.1 RBC 3.83 L Hgb 12.4 L Hct 36.0 L MCV 94.0 MCH 32.4 MCHC 34.4 RDW 14.2 Plt Count 230 MPV 9.0 L Neut % (Auto) 77.6 H Lymph % (Auto) 14.4 L [place] % (Auto) 7.0 Eos % (Auto) 0.2 L Baso % (Auto) 0.3 Neut # (Auto) 4.7 Lymph # (Auto) 0.9 L [place] # (Auto) 0.4 Eos # (Auto) 0.0 Baso # (Auto) 0.0 Abs Immat Gran (auto) 0.03 Imm/Tot Granulo (auto) 0.5 Sodium 128 L Potassium 4.7 Chloride 91 L Carbon Dioxide 30.5 Anion Gap 11.2 BUN 21.0 H Creatinine 0.95 Est GFR ( Amer) >60 Est GFR (Non-Af Amer) >60 BUN/Creatinine Ratio 22.1 Glucose 160 H Calcium 9.3 POC Glucose 224 H 231 H 09/03/25 16:03 WBC RBC Hgb Hct MCV MCH MCHC RDW Plt Count MPV Neut % (Auto) Lymph % (Auto) [place] % (Auto) Eos % (Auto) Baso % (Auto) Neut # (Auto) Lymph # (Auto) [place] # (Auto) Eos # (Auto) Baso # (Auto) Abs Immat Gran (auto) Imm/Tot Granulo (auto) Sodium Potassium Chloride Carbon Dioxide Anion Gap BUN Creatinine Est GFR ( Amer) Est GFR (Non-Af Amer) BUN/Creatinine Ratio Glucose Calcium POC Glucose 119 H Discharge Plan Discharge Disposition: Home, Self-Care Discharge Medications: New amoxicillin-pot clavulanate 875-125 mg tablet 1 tab PO BID Qty: 20 0RF Continued cholecalciferol (vitamin D3) 125 mcg (5,000 unit) capsule 125 mcg PO BID sertraline 100 mg tablet 100 mg PO BID multivitamin Tablet 1 tab PO DAILY dicyclomine 10 mg capsule 10 mg PO TID lamotrigine 200 mg tablet 200 mg PO DAILY AlerClear 10 mg PO DAILY esomeprazole magnesium 40 mg capsule,delayed release(DR/EC) 40 mg PO DAILY Ingrezza 80 mg capsule 80 mg PO DAILY divalproex 125 mg tablet,delayed release (DR/EC) 125 mg PO Q8H risperidone 1 mg tablet 1 mg PO DAILY hydroxyzine HCl 10 mg tablet 10 mg PO BID risperidone 2 mg tablet 2 mg PO BEDTIME rosuvastatin 10 mg tablet 10 mg PO DAILY furosemide 40 mg tablet 40 mg PO DAILY tamsulosin 0.4 mg capsule 0.4 mg PO Q24H albuterol sulfate 90 mcg/actuation HFA aerosol inhaler 1 inh INHALATION Q4H PRN (Reason: shortness of breath or wheezing) metformin 500 mg tablet 500 mg PO BID ipratropium bromide 0.02 % solution 2.5 ml inhalation Q8H cholestyramine (with sugar) 4 gram powder in packet 1 ea PO BIDWM calcium 600 mg capsule 600 mg PO BID ibuprofen [IBU] 800 mg tablet 800 mg PO BID ferrous sulfate [Feosol] 325 mg (65 mg iron) tablet 325 mg PO DAILY Probiotic 10 billion cell capsule 100 mmu cells PO DAILY Print Language: Albanian Activity Restrictions/Additional Instructions: I may not have addressed or treated all of your medical illnesses or the abnormal blood work or imaging studies during this hospitalization. Please ask your primary care provider to obtain [facility] records entirely to follow up on all of the abnormal physical, laboratory, and imaging findings that I have not addressed. Please return back to the emergency room or seek medical attention if your symptoms worsen or return. Imaging showed liver and thyroid lesions. Please ask his primary care doctor to proceed with additional needed investigation in the outpatient setting or referral to see a liver specialist and thyroid specialist Discharging you from [facility] does not mean that your medical care ends here and now. You may still need additional monitoring, work up, investigation, and treatment plan to be handled from this point on by out patient providers including your primary care provider and specialists. For any medication question, please contact your retail pharmacist or your [facility] care provider. Thank you. Forms: Portal Instructions
--- NOTE | 2025-09-04 12:13 | CM.NOTE ---
Important Message From Medicare discussed with pt and niece. Niece verbalizes understanding and signs paper. Original given to pt and copy placed on pt's chart.
--- NOTE | 2025-09-04 12:38 | PM.EN ---
Event Note Event Note: Patient qualified for oxygen 2 to 3 L. We will arrange for home.
--- NOTE | 2025-09-04 12:50 | SWNOTE1 ---
See case management note. Pt being discharged today and qualified for home oxygen. SW faxed prescription, walk test, face sheet, and physician note to [facility].
--- NOTE | 2025-09-04 13:47 | SWNOTE1 ---
ASH called Marie at [facility] and she has received the referral. She is working on it now. She did let ASH know that pt's insurance, [employer], does require a prior authorization. She will contact ASH once she gets the auth.
--- NOTE | 2025-09-04 15:29 | SWNOTE1 ---
SW received a call from Marie at [facility] and oxygen is all set to go. Pt is going home on 3 liters of home oxygen nasal canula from [facility].
--- NOTE | 2025-09-04 15:45 | SWNOTE1 ---
ASH took oxygen tank to pt's room. Pt's caregiver was in room with patient. SW le them know the oxygen is approved. ASH provided the tank to caregiver and advised she needs to call once she is on way home with pt or have arrived home and they will deliver the rest of the supplies to the home. She voiced understanding. ASH did ask her if Sade MAYORGA, needed to be notified? She texted Sade and Saed wanted to know the last o2 stat on room air? SW provided caregiver with walk test. Caregiver sent the information to MUKESH Stuart. ASH updated nurse that the oxygen is good to go.
--- NOTE | 2025-09-07 13:16 | CM.DCFOLLOWU ---
2nd attempt 09/07/25, no answer
--- NOTE | 2025-09-07 13:16 | CM.DCFOLLOWU ---
2nd attempt 09/07/25, no answer
--- NOTE | 2025-09-08 12:36 | CM.DCFOLLOWU ---
3rd attempt 09/08/25, no answer
== END 2025-09-04 16:47 | disposition home or self-care (01) | DRG 191 ==
LOC: ER 18:22 → MS 20:13
PROVIDERS: Admitting Provider Hospitalist; Emergency Provider Emergency Medicine; PCP Internal Medicine; Visit Provider Hospitalist
DX: J47.1 Bronchiectasis with (acute) exacerbation (principal); C15.9 Malignant neoplasm of esophagus, unspecified; F31.81 Bipolar II disorder; J47.0 Bronchiectasis with acute lower respiratory infection; J20.9 Acute bronchitis, unspecified; E11.65 Type 2 diabetes mellitus with hyperglycemia; R09.02 Hypoxemia; R13.10 Dysphagia, unspecified; N40.0 Benign prostatic hyperplasia without lower urinary tract symptoms; K58.0 Irritable bowel syndrome with diarrhea; I25.10 Atherosclerotic heart disease of native coronary artery without angina pectoris; K21.9 Gastro-esophageal reflux disease without esophagitis; Z66 Do not resuscitate; J69.0 Pneumonitis due to inhalation of food and vomit; K76.9 Liver disease, unspecified; E04.1 Nontoxic single thyroid nodule; Z79.899 Other long term (current) drug therapy; Z79.84 Long term (current) use of oral hypoglycemic drugs; Z99.81 Dependence on supplemental oxygen
CPT/HCPCS: 36415; 36600; 70450; 71045; 71260; 80048; 80053; 82805; 82948; 83036; 83735; 83880; 84484; 85025; 85378; 85610; 85730; 87040; 87070; 87205; 93005; 94640; 94667; 94668; 94761; 96365; 96375; 97162; 97165; 97530; 97535; 99285; J0456; J0696; J1650; J1938; J2919; J7512; Q9967

== ENCOUNTER 2025-10-19 14:40 | Outpatient (OUT) | payer MEDICARE, MEDICAID, SELFPAY ==
--- NOTE | 2025-10-19 15:06 | PM.WCHP ---
Wound Care H&P: HPI History of Present Illness Narrative: Mr. Mon is a pleasant 75-year-old gentleman with history of type 2 diabetes with eye complications who presents for routine nail care. He is currently on hospice for metastatic cancer and is home home O2. He states is toenails are long and painful. [facility] PFS Medical History (Updated 09/08/25 @ 00:00 by ) Esophageal cancer ?C15.9 - Malignant neoplasm of esophagus, unspecified (ICD-10) Bipolar II disorder ?F31.81 - Bipolar II disorder (ICD-10) GERD (gastroesophageal reflux disease) ?K21.9 - Gastro-esophageal reflux disease without esophagitis (ICD-10) CAD (coronary artery disease) ?I25.10 - Atherosclerotic heart disease of [place] coronary artery without angina pectoris (ICD-10) IBS (irritable bowel syndrome) ?K58.9 - Irritable bowel syndrome, unspecified (ICD-10) COPD (chronic obstructive pulmonary disease) ?J44.9 - Chronic obstructive pulmonary disease, unspecified (ICD-10) Diabetes mellitus ?E11.9 - Type 2 diabetes mellitus without complications (ICD-10) Family History (Updated 09/03/25 @ 03:53 by Justice Blue RN) Sister Family history of hypertension Cancer COPD (chronic obstructive pulmonary disease) Diabetes Brother Family history of hypertension Cancer Sister Cancer COPD (chronic obstructive pulmonary disease) Diabetes Mother Cancer CHF (congestive heart failure) COPD (chronic obstructive pulmonary disease) Myocardial infarct Social History (Updated 09/03/25 @ 03:53 by Justice Blue RN) Within the past year, how often did you have a drink containing alcohol: never Within the past year, how often did you have six or more drinks on one occasion: never Score interpretation: A score less than 4 is consistent with normal alcohol consumption. Smoking status: Former smoker Known occupational exposures/hazards: No Highest level of school completed/degree received: 10th grade Are you now , , , , never or living with a partner: never In a typical week, how many times do you talk on the telephone with family, friends, or neighbors: 3 or more times per week How often do you get together with friends or relatives: 3 or more times per week How often do you attend congregational or samaritan services: 4 or more times per year Little interest or pleasure in doing things: not at all Feeling down, depressed, or hopeless: not at all Meds Home Medications and Allergies Home Medications ?Medication ?Instructions ?Recorded ?Confirmed ?Type AlerClear 10 mg PO DAILY 09/02/25 09/02/25 History Lactobacillus acidophilus 10 100 mmu cells PO DAILY 09/02/25 09/02/25 History billion cell capsule (Probiotic) albuterol sulfate 90 mcg/actuation 1 inh inhalation Q4H PRN shortness 09/02/25 09/03/25 History aerosol inhaler of breath or wheezing calcium 600 mg capsule 600 mg PO BID 09/02/25 09/02/25 History cholecalciferol (vitamin D3) 125 125 mcg PO BID 09/02/25 09/02/25 History mcg (5,000 unit) capsule cholestyramine (with sugar) 4 gram 1 ea PO BIDWM 09/02/25 09/03/25 History powder for susp in a packet dicyclomine 10 mg capsule 10 mg PO TID 09/02/25 09/02/25 History divalproex 125 mg tablet,delayed 125 mg PO Q8H 09/02/25 09/02/25 History release esomeprazole magnesium 40 mg 40 mg PO DAILY 09/02/25 09/02/25 History capsule,delayed release ferrous sulfate 325 mg (65 mg 325 mg PO DAILY 09/02/25 09/02/25 History iron) tablet (Feosol) furosemide 40 mg tablet 40 mg PO DAILY 09/02/25 09/02/25 History hydroxyzine HCl 10 mg tablet 10 mg PO BID 09/02/25 09/02/25 History ibuprofen 800 mg tablet (IBU) 800 mg PO BID 09/02/25 09/02/25 History ipratropium bromide 0.02 % 2.5 ml inhalation Q8H 09/02/25 09/02/25 History solution for inhalation lamotrigine 200 mg tablet 200 mg PO DAILY 09/02/25 09/02/25 History metformin 500 mg tablet 500 mg PO BID 09/02/25 09/02/25 History multivitamin 1 tab PO DAILY 09/02/25 09/02/25 History risperidone 1 mg tablet 1 mg PO DAILY 09/02/25 09/02/25 History risperidone 2 mg tablet 2 mg PO BEDTIME 09/02/25 09/02/25 History rosuvastatin 10 mg tablet 10 mg PO DAILY 09/02/25 09/02/25 History sertraline 100 mg tablet 100 mg PO BID 09/02/25 09/02/25 History tamsulosin 0.4 mg capsule 0.4 mg PO Q24H 09/02/25 09/02/25 History valbenazine 80 mg capsule 80 mg PO DAILY 09/02/25 09/02/25 History (Ingrezza) amoxicillin 875 mg-potassium 1 tab PO BID #20 tabs 09/04/25 Rx clavulanate 125 mg tablet Allergies Allergy/AdvReac Type Severity Reaction Status Date / Time No Known Drug Allergies Allergy Verified 09/02/25 16:07 Exam Narrative: Exam Narrative: Derm: Toenails 1 through 10 are thickened, elongated, mycotic, and painful.? No evidence of paronychia.? Skin is diffusely dry, thin, and atrophic.? Mild maceration noted between toe 4/5 on the right foot. Vascular: DP and PT pulses are 2/4 bilaterally. Capillary refill is less than 3 seconds to all toes. Digital hair is absent bilaterally. Neuro: Vibratory sensation is present bilaterally.? Achilles deep tendon reflex is absent bilaterally.? Protective sensation was tested with a monofilament and is present in 3/5 areas tested on the right and 5/5 areas tested on the left.? Musculoskeletal: No gross deformity.? Strength 5/5 in all planes bilaterally Assessment and Plan Assessment and Plan (1) Tinea unguium: (2) Type 2 diabetes mellitus with other diabetic ophthalmic complication: (3) Nail dystrophy: Plan Routine nail care performed. Follow-up in 3 months or as needed. Acute Procedures Podiatry Nail Debridement Class B Findings Advanced trophic changes as evidenced by any three of the following: decreased hair growth, nail changes (thickening) and skin texture (thin or shiny) Class C Findings Claudication: No Temperature changes: No Edema: Yes Nail debridement paresthesia (abnormal spontaneous sensations in the feet): No Burning: No Qualifies If: Qualifiers If:: A patient qualifies for nail debridement if they have: 1 class A finding (Q7) 2 class B findings (Q8) OR 1 class B & 2 class C findings in addition to a primary condition (Q9) Nail Procedure Nail Procedure Time out: Yes Nail procedure: other (Toenail debridement toes 1 through 10) Number of affected nails: 10 Location (toes): left and right Procedure successful: Yes Patient tolerated procedure: well and no complications Additional comments: Toenails 1 through 10 were sharply debrided with nail nippers without incident
== END 2025-10-19 14:41 | disposition home or self-care (01) ==
LOC: WC 14:40
PROVIDERS: PCP Internal Medicine; Visit Provider Physician Assistant
DX: B35.1 Tinea unguium (principal); E11.39 Type 2 diabetes mellitus with other diabetic ophthalmic complication; L60.8 Other nail disorders
CPT/HCPCS: 11721